=== PATIENT | female | born 1950 | race Caucasian/White ===

== ENCOUNTER 2023-05-20 21:09 | Emergency (ER) | payer MEDICARE, OTHER, SELFPAY ==
[2023-05-20 21:11] VITALS: BP 156/97; PULSE 101; RESP 16; TEMP 36.6; O2SAT 98; BMI 27.3
--- NOTE | 2023-05-20 21:23 | CT_ITS ---
INDICATION: injury EXAMINATION: CT BRAIN - CT Head or Brain W/O Contrast Injection TECHNIQUE: Multiple axial images were obtained of the head without intravenous contrast. A radiation dose optimization technique was used for this scan. IV Contrast dosage and agent: None. COMPARISON: FINDINGS: BRAIN PARENCHYMA: No intra- or extra-axial hemorrhage. No evidence of acute infarct. No intracranial mass or mass effect. There is preservation of the arechiga/white matter interface. Posterior fossa structures are unremarkable. CSF SPACES: Appropriate for age. No hydrocephalus. Basal cisterns are patent. CALVARIUM, SKULL BASE, PARANASAL SINUSES AND MASTOID AIR CELLS: Clear. No discrete lytic or blastic abnormalities. ORBITS: Both globes, extraocular muscles, optic nerves and retrobulbar fat appear unremarkable. Soft tissue laceration noted at the vertex. Superficial calcification presumably chronic noted on sagittal image [address]/Brain/Head without Contrast IMPRESSION: Soft tissue laceration superficially. No bony fracture or acute intracranial hemorrhage. Electronically Signed: Jonel Meier MD at 21:49 EST ,
--- NOTE | 2023-05-20 21:25 | EX.ED.GENINJ ---
HPI History of Present Illness Chief Complaint: Fall Informant: patient Onset/Context/Timing Onset: Today Narrative Narrative: Patient presents with a fall at home. She states she was stepping out of the shower when the mat slipped and she fell striking her head. She has a 3 cm laceration over the posterior parietal scalp. Bleeding is well controlled. She also has some slight right hip pain but was able to ambulate. She did not lose consciousness. She is not on anticoagulants. [facility] Medical History (Updated 05/20/23 @ 23:[address] Liane Woody MD) Hypothyroidism Home Medications colestipol 1 gram tablet (Colestid) 1 g PO BID 05/20/23 [History Last Taken Unknown] cyclobenzaprine 5 mg tablet 5 mg PO QHS 05/20/23 [History Last Taken Unknown] diphenoxylate-atropine 2.5 mg-0.025 mg tablet (Lomotil) 1 tab PO Q8H 05/20/23 [History Last Taken Unknown] ferrous sulfate 325 mg (65 mg iron) tablet (FeroSul) 325 mg PO DAILY 05/20/23 [History Last Taken Unknown] hyoscyamine sulfate 0.375 mg tablet,extended release,12 hr 0.375 mg PO Q12H 05/20/23 [History Last Taken Unknown] levothyroxine 75 mcg tablet 75 mcg PO DAILY 05/20/23 [History Last Taken Unknown] loperamide 2 mg capsule (Anti-Diarrheal (loperamide)) 4 mg PO DAILY 05/20/23 [History Last Taken Unknown] meloxicam 15 mg tablet 15 mg PO DAILY 05/20/23 [History Last Taken Unknown] multivitamin (Daily Multi-Vitamin tablet) 1 tab PO DAILY 05/20/23 [History Last Taken Unknown] Allergy/AdvReac Type Severity Reaction Status Date / Time Sulfa (Sulfonamide Allergy Rash Verified 05/20/23 21:15 Antibiotics) gluten AdvReac Upset Verified 05/20/23 21:15 Stomach Surgical History History of appendectomy Social History Smoking Status: Never smoker ROS ROS ED Constitutional Constitutional ED: Denies chills or fever(s) Eyes Eyes: Denies discharge from eye(s) ENT ENT ED: Denies discharge from eye(s), rhinorrhea or sore throat Cardiovascular Cardiovascular: Denies chest pain or palpitations Respiratory/Chest Respiratory/Chest: Denies cough or dyspnea Gastrointestinal Gastrointestinal: Denies abdominal pain, nausea or vomiting Musculoskeletal Musculoskeletal: Reports extremity pain; Denies back pain Integumentary Reports other Details: Scalp laceration ; Denies Abrasions or rash Neurologic Neurologic: Reports headache(s); Denies weakness Psychiatric Psychiatric: Denies anxiety or depression Allergic/Immunologic Allergic/Immunologic ED: Denies lip swelling or urticaria EXAM Physical Exam Const Vital Signs: 05/20/23 21:11 05/20/23 21:21 Temperature 97.8 F Temperature Source Temporal Pulse Rate 101 H Respiratory Rate 16 Respiratory Effort Normal Respiratory Depth Normal Respiratory Pattern Normal Blood Pressure 156/97 H Blood Pressure Mean 116 Pulse Ox 98 Oxygen Delivery Method Room Air Room Air Positive well nourished and well developed General Appearance ED: well developed HEENT HEENT Narrative: 6 cm laceration to the posterior parietal scalp midline. Bleeding controlled at this time. Eyes EOMs intact bilaterally Neck full ROM Chest Wall inspection of chest normal and palpation of chest normal Resp normal respiratory effort and clear to auscultation bilaterally Cardio regular rhythm Rate: regular rate GI non-tender Palpation: soft Extremity Extremity Narrative: Mild tenderness over the greater trochanter of the right hip. Good range of motion without difficulty. Strong distal pulses. Neuro oriented x3, moves all extremities, no focal motor deficits and no sensory deficits noted Psych mental status grossly normal Skin Skin Narrative: Scalp laceration as noted above. MDM MDM MDM Narrative Medical decision making narrative: Tetanus update provided. Patient sent for CT scan of the head to evaluate for fracture, bleed. Pelvis and right hip x-rays will be obtained to evaluate for fracture. Radiography Diagnostic Testing: Clinical Impression(s) from Imaging Studies Brain CT 05/20/23 21:23 IMPRESSION: Soft tissue laceration superficially. No bony fracture or acute intracranial hemorrhage. Electronically Signed: Jonel Meier MD at 21:49 EST , Hip/Pelvis X-Ray 05/20/23 21:35 IMPRESSION: No fracture detected. Osteoarthritis. Electronically Signed: Jonel Meier MD at 21:51 EST , Treatment and Re-Evaluation Narrative: CT scan of the head reveals soft tissue laceration with no bony injury. No intracranial hemorrhage. Pelvis and right hip x-rays per my interpretation reveal no evidence of fracture. Radiology interpretation reviewed and agrees. Patient's scalp wound was anesthetized with 6 cc of 1% lidocaine. Wound thoroughly cleansed and irrigated. 7 stephenie were placed across the wound with good approximation. She has an appointment with her PCP in 10 days and will have stephenie removed at that time. Wound care as discussed. Discharge Plan Triage Chief Complaint: Fall Other Complaint: Head Injury ED Provider: Liane Woody Dx/Rx/DC Orders Clinical Impression: Contusion of hip, Fall, Laceration of scalp Instructions: ED Hip Contusion, ED Laceration Scalp Stitches or Devers Prescriptions: No Action colestipol [Colestid] 1 gram tablet 1 g PO BID cyclobenzaprine 5 mg tablet 5 mg PO QHS Patient Comments: Take 1 tablet by mouth daily at bedtime. diphenoxylate-atropine [Lomotil] 2.5-0.025 mg tablet 1 tab PO Q8H ferrous sulfate [FeroSul] 325 mg (65 mg iron) tablet 325 mg PO DAILY Patient Comments: Take 1 tablet by mouth daily with breakfast. hyoscyamine sulfate 0.375 mg tablet extended release 12 hr 0.375 mg PO Q12H levothyroxine 75 mcg tablet 75 mcg PO DAILY loperamide [Anti-Diarrheal (loperamide)] 2 mg capsule 4 mg PO DAILY meloxicam 15 mg tablet 15 mg PO DAILY multivitamin [Daily Multi-Vitamin] Tablet 1 tab PO DAILY Primary Care Provider: Flaquito Goodman Referrals: Flaquito Goodman MD [Primary Care Provider] - [facility] appointment Disposition Disposition: Home, Self Care
--- NOTE | 2023-05-20 21:35 | RAD_ITS ---
INDICATION: injury EXAMINATION/TECHNIQUE: X-RAY - RIGHT 1 view pelvis and 2 view right hip COMPARISON: None. FINDINGS: Moderate bilateral hip joint space narrowing. No fracture. Pelvic rings are intact. Mild to moderate SI joint degenerative change. There is lower lumbar spine intervertebral disc narrowing and facet arthropathy L4-S1. RAD/HIP, UNI W/ Pelvis 2-3 Views IMPRESSION: No fracture detected. Osteoarthritis. Electronically Signed: Jonel Meier MD at 21:51 EST ,
[2023-05-20] MEDS: Diphth,Pertuss(Acell),Tet Vac 0.5 ML Vial IM (22:39)
[2023-05-20] MEDS: Lidocaine 1% (20 ml mdv) 20 ML Vial INFILT (22:39)
== END 2023-05-20 23:17 | disposition home or self-care (01) ==
PROVIDERS: Emergency Provider Emergency Medicine; PCP Family Medicine; Visit Provider Emergency Medicine
DX: S01.01XA Laceration without foreign body of scalp, initial encounter (principal); S70.01XA Contusion of right hip, initial encounter; W18.2XXA Fall in (into) shower or empty bathtub, initial encounter; Y93.89 Activity, other specified; Y92.89 Other specified places as the place of occurrence of the external cause; E03.9 Hypothyroidism, unspecified; Z79.899 Other long term (current) drug therapy; Z90.49 Acquired absence of other specified parts of digestive tract; Z23 Encounter for immunization
CPT/HCPCS: 12002; 70450; 73502; 90715; 99283

== ENCOUNTER → 2024-12-31 | Outpatient (CLI) | payer MEDICARE, OTHER, SELFPAY ==
[2024-12-31 14:24] LABS: Hematocrit 33.4 % (37-47); Hemoglobin 11.0 g/dL (12.0-15.0); Immature Granulocytes Count 0.030 X10^3/uL (0.0-0.0); Mean Corp Hgb Conc 32.9 g/dL (32-36); Mean Corpuscular Volume 90.0 fL (81-99); Mean Platelet Vol. 10.0 fl (6.2-12.0); NRBC Flagged by Analyzer 0 % (0-5); Platelet Count 505 K/mm3 (150-450); RBC Distribution Width CV 14.2 % (11.6-14.6); RBC Distribution Width SD 46.5 fl (35.1-43.9); Red Blood Count 3.71 M/mm3 (4.2-5.4); White Blood Count 11.7 K/mm3 (4.4-11.0)
[2024-12-31 15:27] LABS: AST(SGOT) 79 U/L (<=31); Alanine Aminotransfer ALT/SGPT 95 U/L (<=34); Albumin, Serum 3.5 g/dL (3.4-4.8); Alkaline Phosphatase 248 U/L (35-104); Anion Gap 16 (5-15); BUN 13 mg/dL (4-19); BUN/Creat Ratio 16.2 RATIO (10-20); Calcium,Total 9.1 mg/dL (7.6-11.0); Carbon Dioxide 24.2 mmol/L (21.0-32.0); Chloride 98 mmol/L (98-108); Cholesterol 159 mg/dL (<=200); Ferritin 163 ng/mL (22-378); Globulin 3.3 g/dL (2.2-4.2); Glucose 106 mg/dL (70-99); Low Density Lipoprotein Calc. 71 mg/dL; Potassium 3.2 mmol/L (3.3-5.1); Triglycerides 64 mg/dL; Very Low Density Lipoprotein 13 mg/dL (5-40); cholesterol:hdl ratio screen 2.12
[2024-12-31 16:06] LABS: Iron 14 ug/dL (50-170); Iron Binding Capacity,Total 274 ug/dL (250-450); Iron Binding Capacity,Unsat 260 ug/dL (228-428)
--- OUTSIDE RECORDS SUMMARY | 2024-12-31 21:18 | XMS RPT_ITS | CCD ---
Author Organization [facility] Team Providers Care Manager Occupational Name Role Phone Humera Lamas MD Primary Care Provider Humera Lamas Primary Care Unavailable Liane Woody Attending Unavailable Humera Lamas MD Primary Care Provider Humera Lamas MD Primary Care Provider Evelin LESTER MD, Mark Beltre Primary Care Provider Gladys vailable [place] [employer] Unavailable Ellis SHOT FIREMAN.Alessio [place] Unavailable PEPPER SOUSA Referring Unavailable CYDNEY HUMERA D Primary Care Unavailable VEDAHOFPEPPER Attending Unavailable CYDNEY HUMERA Lissy Primary Care Unavailable ELDERBROCK HUMERA Lissy Referring Unavailable ELDERBROCK, HUMERA D Primary Care Unavailable TANNHOFDIXIEPEPPER Referring Unavailable ELDERBROCK, HUMERA D Primary Care Unavailable TANNHOFDIXIEPEPPER Referring Unavailable ELDERBROCK, HUMERA D Primary Care Unavailable TANNHODIXIE RivasLEY Attending Unavailable ELDERBROCK, HUMERA D Primary Care Unavailable TANNHOF PEPPER Referring Unavailable ELDERBROCK, HUMERA D Primary Care Unavailable [place] [employer] Unavailable [phone] Allergies Allergy Classification Reported Allergen(s) Allergy Type Date of Onset Reaction(s) Facility (20 sources) Sulfonamides (Antibiotic); Translations: [SULFA (SULFONAMIDE ANTIBIOTICS)] Propensity to adverse reactions 5 [facility] Work Phone: (20 sources) Wheat gluten extract; Translations: [GLUTEN] Drug Allergy 5 Upset Stomach [facility] Work Phone: (1 source) Sulfonamides (Antibiotic) Allergy to substance 3 Rash [facility] (1 source) Gluten Drug allergy (disorder) 3 [facility] Repository (1 source) Sulfonamides (Antibiotic) Drug allergy (disorder) 3 [facility] Repository Medications Current Medications Medication Drug Class(es) Dates Sig (Normalized) Sig (Original) amoxicillin 875 mg / clavulanate 125 mg oral tablet (2 sources) Penicillin-class Antibacterial Start: 06-16-2022 End: 06-26-2022 take 1 tablet by mouth twice daily amoxicillin-clavu lanic acid (AUGMENTIN) 875-125 mg per tablet Indications: Acute otitis media, unspecified otitis media type Take 1 tablet by mouth twice daily for 10 days. 20 tablet 0 06/16/2022 06/26/2022 Active Comment on above: Take 1 tablet by светлана th twice daily for 10 days. atropine sulfate 0.025 mg / diphenoxylate hydrochloride 2.5 mg oral tablet (20 sources) Anticholinergic, Cholinergic Muscarinic Antagonist, Antidiarrheal Start: 05-20-2023 take 1 tablet by mouth every eight hours Diphenoxylate-Atr opine (Lomotil) 2.5-0.025 mg tablet Active 1 TABLET PO Q8H May 20, 2023 12:00am Start: 07-31-2020 End: 06-19-2025 take 1 tablet by mouth four times daily as needed for diarrhea diphenoxylate-atropine (LOMOTIL) 2.5-0.025 mg per tablet Indications: Collagenous colitis Take 1 tablet by mouth four times a day as needed for diarrhea for up to 360 days. 360 tablet 3 06/24/2024 06/19/2025 Active Comment on above: Take 1 tablet by светлана th four times daily as needed for diarrhea for up to 360 days. Take 1 tablet by светлана th four times a day as needed for diarrhea for up to 360 days. colestipol hydrochloride 1000 mg oral tablet (20 sources) Bile Acid Sequestrant Start: 05-20-2023 Colestipol (Colestid) 1 gram tablet Active 1 GM PO TWICE A DAY May 20, 2023 12:00am Start: 07-31-2020 End: 06-24-2024 take 3 tablets by mouth twice daily colestipol (COLESTID) 1 gram tablet Indications: Collagenous colitis , Celiac disease (HCC) Take 3 tablets by mouth two times a day. 540 tablet 3 06/24/2024 Active Comment on above: Take 3 tablets by mo uth twice daily. Take 3 tablets by mo ut two times a day. cyclobenzaprine hydrochloride 5 mg oral tablet (18 sources) Muscle Relaxant Start: 03-17-20 End: 05-22-20 take 1 tablet by mouth once daily at bedtime cyclobenzaprine (FLEXERIL) 5 mg tablet Indications: Chronic pain of both knees Take 1 tablet by mouth daily at bedtime. 30 tablet 5 05/22/2023 Active Comment on above: Take 1 tablet by светлана th daily at bedtime. Take 5 mg by mouth d aily at bedtime. ferrous sulfate 325 mg oral tablet (20 sources) Start: 05-20-20 Ferrous Sulfate (Ferrous Sulfate 325 Mg (65 Mg Iron) Tablet) 325 mg (65 mg iron) tablet Active 325 MG PO DAILY May 20, 2023 12:00am Start: 11-24-2022 End: 06-24-2024 take 1 tablet by mouth once daily at breakfast ferrous sulfate 325 mg (65 mg iron) tablet Indications: Collagenous colitis , Iron deficiency anemia, unspecified iron deficiency anemia type Take 1 tablet by mouth daily with breakfast. 90 tablet 3 06/24/2024 Active Start: 11-25-2021 End: 04-21-2022 take 1 tablet by mouth once daily at breakfast ferrous sulfate 325 mg (65 mg iron) tablet Indications: Iron deficiency anemia, unspecified iron deficiency anemia type Take 1 tablet by mouth daily with breakfast. 30 tablet 5 04/21/2022 Active Comment on above: Take 1 tablet by светлана th daily with breakfast. 12 hr hyoscyamine sulfate 0.375 mg extended release oral tablet (20 sources) Start: take 0.375 mg by mouth every twelve hours Hyoscyamine Sulfate Active 0.375 MG PO Q12H May 20, 2023 12:00am Start: 10-24-2022 End: 06-24-2024 take 1 tablet by mouth twice daily hyoscyamine SR (LEVBID) 0.375 mg 12 hr tablet Indications: Collagenous colitis Take 1 tablet by mouth two times a day. 180 tablet 3 06/24/2024 Active Start: 07-31-2020 End: 08-09-2021 take 1 tablet by mouth twice daily hyoscyamine SR (LEVBID) 0.375 mg 12 hr tablet Indications: Collagenous colitis Take 1 tablet by mouth twice daily. 180 tablet 3 08/09/2021 Active Comment on above: Take 1 tablet by светлана th twice daily. levothyroxine sodium 0.088 mg oral tablet (20 sources) l-Thyroxine Start: End: take 1 tablet by mouth once daily levothyroxine (SYNTHROID) 88 mcg tablet Indications: Hypothyroidism, unspecified type Take 1 tablet by mouth once daily. Take on empty stomach. 90 tablet 3 06/24/2024 Active Start: 10-24-2022 End: 05-30-2023 take 1 tablet by mouth once daily for thyroid dysfunction levothyroxine (SYNTHROID) 75 mcg tablet Take 1 tablet by mouth once daily. Take on empty stomach. For Thyroid 90 tablet 3 10/24/2022 05/30/2023 Discontinued Start: 07-31-2020 End: 08-09-2021 take 1 tablet by mouth once daily for thyroid dysfunction levothyroxine (SYNTHROID) 75 mcg tablet Take 1 tablet by mouth once daily. Take on empty stomach. For Thyroid 90 tablet 3 08/09/2021 Active Comment on above: Take 1 tablet by светлана th once daily. Take on empty stomach. For Thyroid Take 1 tablet by светлана th once daily. Take on empty stomach. loperamide hydrochloride 2 mg oral capsule (20 sources) Opioid Agonist Start: 07-31-19 End: 05-22-20 23 take 1 capsule by mouth once daily loperamide (IMODIUM) 2 mg cap(s) Indications: Celiac disease (HCC) TAKE 1 CAPSULE BY MOUTH WITH EACH MEAL DAILY 270 capsule 3 05/22/2023 Active Comment on above: TAKE 1 CAPSULE BY MO UTH WITH EACH MEAL DAILY meloxicam 15 mg oral tablet (20 sources) Nonsteroidal Anti-inflammatory Drug Start: 08-09-19 22 End: 06-24-19 26 take 1 tablet by mouth once daily at mealtime meloxicam (MOBIC) 15 mg tablet Indications: Chronic pain of both knees Take 1 tablet by mouth once daily. With food. 90 tablet 3 06/24/2024 06/24/2025 Active Comment on above: Take 1 tablet by светлана th once daily. With food. MULTI-VITAMIN TAB (20 sources) Start: 04-19-20 05 MULTI-VITAMIN TAB Indications: Other malaise and fatigue Take one(1) tablet daily. 0 04/19/2005 Active Comment on above: Take one(1) tablet d aily. Multivitamin (Daily Multi-Vitamin) tablet (1 source) Start: 05-20-20 take 1 tablet by mouth once daily Multivitamin (Daily Multi-Vitamin) tablet Active 1 TABLET PO DAILY May 20, 2023 12:00am Problems Active Problems Problem Classification Problem Date Documented Da te Episodic/Chronic Deficiency and other anemia (2 sources) Anemia; Translations: [Anemia, unspecified] Episodic Deficiency and other anemia (7 sources) Iron deficiency anemia; Translations: [Iron deficiency anemia, unspecified] Episodic Disorders of lipid metabolism (20 sources) Hyperlipidemia; Translations: [Hyperlipidemia, unspecified] Onset: 3 06-21-2012 Chronic E Codes: Fall (1 source) Fall; Translations: [Unspecified fall, initial encounter] 05-20-2023 Episodic Esophageal disorders (20 sources) Gastroesophageal reflux disease; Translations: [Gastro-esophageal reflux disease without esophagitis] 04-18-2005 Chronic Menopausal disorders (20 sources) Menopausal symptom; Translations: [Menopausal and female climacteric states] Onset: 7 01-17-2007 Chronic Noninfectious gastroenteritis (20 sources) Collagenous colitis; Translations: [Collagenous colitis] Onset: 0 04-21-2010 Chronic Nonmalignant breast conditions (20 sources) Fibrocystic disease of breast; Translations: [Diffuse cystic mastopathy of unspecified breast] Onset: 4 03-27-2014 Chronic Open wounds of head; neck; and trunk (2 sources) Scalp laceration; Translations: [Laceration without foreign body of scalp, initial encounter] Onset: 3 05-20-2023 Episodic Osteoarthritis (20 sources) Arthropathy of joint of hand; Translations: [Primary osteoarthritis, unspecified hand] Onset: 4 07-08-2013 Chronic Other aftercare (20 sources) Patient encounter status; Translations: [Other group home (current) drug therapy] Onset: 6 12-25-2015 Episodic Other aftercare (1 source) Post-discharge follow-up; Translations: [Encounter for follow-up examination after completed treatment for conditions other than malignant neoplasm] 05-30-2023 Episodic Other aftercare (1 source) Surgical follow-up; Translations: [Encounter for removal of sutures] 05-30-2023 Episodic Other gastrointestinal disorders (20 sources) Celiac disease; Translations: [Celiac disease] 04-18-2005 Chronic Other gastrointestinal disorders (1 source) Celiac disease; Translations: [Celiac disease] Onset: 5 Chronic Other nervous system disorders (1 source) Other chronic pain; Translations: [Chronic pain of both knees] Onset: 4 Chronic Other nutritional; endocrine; and metabolic disorders (1 source) Weight gain; Translations: [Abnormal weight gain] Episodic Otitis media and related conditions (1 source) Acute otitis media; Translations: [Otitis media, unspecified, unspecified ear] Episodic Residual codes; unclassified (3 sources) Postmenopausal state; Translations: [Asymptomatic menopausal state] 06-28-2024 Episodic Residual codes; unclassified (1 source) Asymptomatic menopausal state; Translations: [Asymptomatic postmenopausal status] Onset: 5 Episodic Spondylosis; intervertebral disc disorders; other back problems (20 sources) Pain in cervical spine; Translations: [Cervical disc disorder, unspecified, unspecified cervical region] Onset: 0 08-25-2009 Chronic Superficial injury; contusion (1 source) Contusion of hip; Translations: [Contusion of unspecified hip, initial encounter] 05-20-2023 Episodic Thyroid disorders (20 sources) Hypothyroidism; Translations: [Hypothyroidism, unspecified] Onset: 1 06-06-2011 Chronic Unclassified (1 source) Acute midline low back pain without sciatica; Translations: [Acute midline low back pain without sciatica] Onset: 5 Past or Other Problems Problem Classification Problem Date Documented Date Episodic/Chronic Deficiency and other anemia (1 source) Iron deficiency anemia, unspecified; Translations: [Iron deficiency anemia, unspecified iron deficiency anemia type] Onset: 12-01-2023 Episodic Esophageal disorders (9 sources) Esophagitis; Translations: [Esophagitis, unspecified] Onset: 05-18-2007 Resolved: 05-05-2016 05-05-2016 Episodic Gastritis and duodenitis (20 sources) Acute gastritis; Translations: [Acute gastritis without bleeding] Onset: 05-18-2007 05-18-2007 Episodic Mood disorders (9 sources) Major depression, single episode; Translations: [Major depressive disorder, single episode, unspecified] Resolved: 06-28-2017 06-28-2017 Chronic Nausea and vomiting (20 sources) Postoperative nausea and vomiting; Translations: [Nausea with vomiting, unspecified] Onset: 01-13-2015 01-13-2015 Episodic Nonspecific chest pain (2 sources) Chest pain; Translations: [Other chest pain] Onset: 12-01-2023 12-01-2023 Episodic Nutritional deficiencies (14 sources) Vitamin D deficiency; Translations: [Vitamin D deficiency, unspecified] Onset: 06-06-2011 Resolved: 05-05-2016 Chronic Other aftercare (8 sources) Long-term current use of drug therapy; Translations: [Other group home (current) drug therapy] Onset: 12-25-2015 12-25-2015 Episodic Other connective tissue disease (9 sources) Soft tissue lesion of shoulder region; Translations: [Bursopathy, unspecified] Onset: 06-14-2005 Resolved: 05-05-2016 05-05-2016 Episodic Other connective tissue disease (9 sources) Triggering of digit; Translations: [Trigger finger, right middle finger] Onset: 07-08-2013 Resolved: 05-05-2016 05-05-2016 Episodic Other non-traumatic joint disorders (20 sources) Pain in left knee; Translations: [Pain in joint, lower leg] Onset: 05-02-2013 05-02-2013 Episodic Other non-traumatic joint disorders (6 sources) Pain in right knee; Translations: [Pain in joint, lower leg] Onset: 12-01-2023 Episodic Other nutritional; endocrine; and metabolic disorders (20 sources) Unintentional weight loss; Translations: [Abnormal weight loss] Onset: 06-28-2017 06-28-2017 Episodic Other screening for suspected conditions (not mental disorders or infectious disease) (20 sources) Mammography abnormal; Translations: [Other abnormal and inconclusive findings on diagnostic imaging of breast] Onset: 01-05-2018 01-30-2018 Episodic Spondylosis; intervertebral disc disorders; other back problems (20 sources) Cervical spine ankylosis; Translations: [Fusion of spine, cervical region] Onset: 01-13-2015 01-13-2015 Episodic Results Test Name Value Interpretation Reference Range Facility BD DXA - AXIAL SKELETONon BD DXA - AXIAL SKELETON * * *Final Repor t* * * DATE OF EXAM: Aug 12 2024 11:29AM [facility] [id number] - DXA - AXIAL SKELETON / PROCEDURE REASON: Asymptomatic postmenopausal status * * * * Physician Interpretation * * * * EXAMINATION: DXA BONE DENSITOMETRY BD DXA - AXIAL SKELETON, BD DXA TRABECLR BONE SCORE (TBS) PATIENT DEMOGRAPHICS: Age: 74 years, Gender: Female SCANNER INFORMATION: DXA Model: Facile System - [employer] C [id number] Date Scanned: 08/12/2024 11:29 AM CLINICAL HISTORY: DIAGNOSTIC Asymptomatic postmenopausal status . RISK FACTORS FOR OSTEOPOROSIS AND ASSOCIATED FRACTURES REPORTED BY THIS PATIENT: Please refer to Bone Health Questionnaire in the EMR CURRENT THERAPY: Please refer to Bone Health Questionnaire in the EMR RESULTS: Lumbar spine (L2, L3, L4): 0.811 g/cm2, T-score -2.4, Z-score 0.0 Lumbar spine: 2012: 0.877 g/cm2 Statistically significant decrease Right Femoral Neck: 0.519 g/cm2, T-score -3.0, Z-score -1.0 Right Femoral Neck: 2012: 0.674 g/cm2 Statistically significant decrease Right Total Hip: 0.608 g/cm2, T-score -2.7, Z-score -1.0 Right Total Hip: 2012: 0.826 g/cm2 Statistically significant decrease Left Femoral Neck: 0.489 g/cm2, T-score -3.2, Z-score -1.3 Left Total Hip: 0.550 g/cm2, T-score -3.2, Z-score -1.5 CHANGE IS STATISTICALLY SIGNIFICANT IN THE SPINE OR HIP IF GREATER THAN OR EQUAL TO 0.04 g/cm2 VERTEBRAL FRACTURE ASSESSMENT Not performed. TRABECULAR BONE ASSESSMENT TBS score: 1.268 Bone micro-architecture: Degraded (< or = 1.230) IMPRESSION: THE LOWEST T-SCORE IS -3.2 IN THE LEFT HIP 1) DIAGNOSIS (based on BMD alone): OSTEOPOROSIS Caution: Medical conditions other than osteoporosis may cause low bone density, such as osteomalacia or renal osteodystrophy. Clinical correlation is necessary. 2) FRACTURE RISK (Based on TBS adjusted FRAX): 10-year absolute fracture risk: - major osteoporotic fracture = 18 % - hip fracture = 6.0 % - A diagnosis of Osteoporosis, a 10 year probability of hip fracture greater than or equal to 3% or a 10 year probability of any major osteoporosis-related fracture greater than or equal to 20% should be considered for treatment. - DXA scanner generated FRAX calculations may slightly differ from online FRAX calculations due to differences in software versions. - All recommendations and calculations are to be considered as guidelines and should not replace sound clinical judgement - Caution: Fracture risk may be increased independent of BMD in patients with corticosteroid use, age greater than 65 years, or a history of prior fragility fracture. RECOMMENDATIONS: Follow-up in 2 years or as clinically indicated. Patients that are taking corticosteroids, are transplant recipients or have hyperparathyroidism should have annual follow-up. Follow-up scans should always be done on the same machine for accurate comparison. FOR MORE INFORMATION ABOUT DIAGNOSIS AND TREATMENT: [facility] for Osteoporosis and Metabolic Bone Disease:? www.ccf.org/arthritis /osteo National Osteoporosis Foundation:? www.nof.org International Society of Clinical Densitometry www.iscd.org Weatherization Operations Manager: YUSEF Transcribe Date/Time: Aug 12 2024 2:27P Dictated by : CONNER MARTINEZ MD This examination was interpreted and the report reviewed and electronically signed by: CONNER MARTINEZ MD on Aug 12 2024 2:30PM EST [id number] N -3.2 Normal [facility] BD DXA TRABECLR BONE SCORE ( TBS)on 08-12-2024 BD DXA TRABECLR BONE SCORE (TBS) * * *Final Report* * * DATE OF EXAM: Aug 12 2024 11:29AM [facility] 0801 - BD DXA TRABECLR BONE SCORE (TBS) / PROCEDURE REASON: Asymptomatic postmenopausal status * * * * Physician Interpretation * * * * EXAMINATION: DXA BONE DENSITOMETRY BD DXA - AXIAL SKELETON, BD DXA TRABECLR BONE SCORE (TBS) PATIENT DEMOGRAPHICS: Age: 74 years, Gender: Female SCANNER INFORMATION: DXA Model: Facile System - [employer] C [id number] Date Scanned: 08/12/2024 11:29 AM CLINICAL HISTORY: DIAGNOSTIC Asymptomatic postmenopausal status . RISK FACTORS FOR OSTEOPOROSIS AND ASSOCIATED FRACTURES REPORTED BY THIS PATIENT: Please refer to Bone Health Questionnaire in the EMR CURRENT THERAPY: Please refer to Bone Health Questionnaire in the EMR RESULTS: Lumbar spine (L2, L3, L4): 0.811 g/cm2, T-score -2.4, Z-score 0.0 Lumbar spine: 2012: 0.877 g/cm2 Statistically significant decrease Right Femoral Neck: 0.519 g/cm2, T-score -3.0, Z-score -1.0 Right Femoral Neck: 2013: 0.674 g/cm2 Statistically significant decrease Right Total Hip: 0.608 g/cm2, T-score -2.7, Z-score -1.0 Right Total Hip: 2013: 0.826 g/cm2 Statistically significant decrease Left Femoral Neck: 0.489 g/cm2, T-score -3.2, Z-score -1.3 Left Total Hip: 0.550 g/cm2, T-score -3.2, Z-score -1.5 CHANGE IS STATISTICALLY SIGNIFICANT IN THE SPINE OR HIP IF GREATER THAN OR EQUAL TO 0.04 g/cm2 VERTEBRAL FRACTURE ASSESSMENT Not performed. TRABECULAR BONE ASSESSMENT TBS score: 1.268 Bone micro-architecture: Degraded (< or = 1.230) IMPRESSION: THE LOWEST T-SCORE IS -3.2 IN THE LEFT HIP 1) DIAGNOSIS (based on BMD alone): OSTEOPOROSIS Caution: Medical conditions other than osteoporosis may cause low bone density, such as osteomalacia or renal osteodystrophy. Clinical correlation is necessary. 2) FRACTURE RISK (Based on TBS adjusted FRAX): 10-year absolute fracture risk: - major osteoporotic fracture = 18 % - hip fracture = 6.0 % - A diagnosis of Osteoporosis, a 10 year probability of hip fracture greater than or equal to 3% or a 10 year probability of any major osteoporosis-related fracture greater than or equal to 20% should be considered for treatment. - DXA scanner generated FRAX calculations may slightly differ from online FRAX calculations due to differences in software versions. - All recommendations and calculations are to be considered as guidelines and should not replace sound clinical judgement - Caution: Fracture risk may be increased independent of BMD in patients with corticosteroid use, age greater than 65 years, or a history of prior fragility fracture. RECOMMENDATIONS: Follow-up in 2 years or as clinically indicated. Patients that are taking corticosteroids, are transplant recipients or have hyperparathyroidism should have annual follow-up. Follow-up scans should always be done on the same machine for accurate comparison. FOR MORE INFORMATION ABOUT DIAGNOSIS AND TREATMENT: [facility] for Osteoporosis and Metabolic Bone Disease:? www.ccf.org/arthritis /osteo National Osteoporosis Foundation:? www.nof.org International Society of Clinical Densitometry www.iscd.org Weatherization Operations Manager: YUSEF Transcribe Date/Time: Aug 12 2024 2:27P Dictated by : CONNER MARTINEZ MD This examination was interpreted and the report reviewed and electronically signed by: CONNER MARTINEZ MD on Aug 12 2024 2:30PM EST [id number] N -3.2 Normal [facility] DXA Femur [T-score] Bone den kera 08-12-2024 * * *Final Report* * * DATE OF EXAM: Aug 12 2024 11:29AM [facility] 0801 - BD DXA TRABECLR BONE SCORE (TBS) / PROCEDURE REASON: Asymptomatic postmenopausal status * * * * Physician Interpretation * * * * EXAMINATION: DXA BONE DENSITOMETRY BD DXA - AXIAL SKELETON, BD DXA TRABECLR BONE SCORE (TBS) PATIENT DEMOGRAPHICS: Age: 74 years, Gender: Female SCANNER INFORMATION: DXA Model: Facile System - [employer] C [id number] Date Scanned: 08/12/2024 11:29 AM CLINICAL HISTORY: DIAGNOSTIC Asymptomatic postmenopausal status . RISK FACTORS FOR OSTEOPOROSIS AND ASSOCIATED FRACTURES REPORTED BY THIS PATIENT: Please refer to Bone Health Questionnaire in the EMR CURRENT THERAPY: Please refer to Bone Health Questionnaire in the EMR RESULTS: Lumbar spine (L2, L3, L4): 0.811 g/cm2, T-score -2.4, Z-score 0.0 Lumbar spine: 2013: 0.877 g/cm2 Statistically significant decrease Right Femoral Neck: 0.519 g/cm2, T-score -3.0, Z-score -1.0 Right Femoral Neck: 2013: 0.674 g/cm2 Statistically significant decrease Right Total Hip: 0.608 g/cm2, T-score -2.7, Z-score -1.0 Right Total Hip: 2013: 0.826 g/cm2 Statistically significant decrease Left Femoral Neck: 0.489 g/cm2, T-score -3.2, Z-score -1.3 Left Total Hip: 0.550 g/cm2, T-score -3.2, Z-score -1.5 CHANGE IS STATISTICALLY SIGNIFICANT IN THE SPINE OR HIP IF GREATER THAN OR EQUAL TO 0.04 g/cm2 VERTEBRAL FRACTURE ASSESSMENT Not performed. TRABECULAR BONE ASSESSMENT TBS score: 1.268 Bone micro-architecture: Degraded (< or = 1.230) DIVISION OF RADIOLOGY Provider, [facility] - 08/12/2024 * * *Final Report* * * DATE OF EXAM: Aug 12 2024 11:29AM [facility] 0801 - BD DXA TRABECLR BONE SCORE (TBS) / PROCEDURE REASON: Asymptomatic postmenopausal status * * * * Physician Interpretation * * * * EXAMINATION: DXA BONE DENSITOMETRY BD DXA - AXIAL SKELETON, BD DXA TRABECLR BONE SCORE (TBS) PATIENT DEMOGRAPHICS: Age: 74 years, Gender: Female SCANNER INFORMATION: DXA Model: Facile System - [employer] C [id number] Date Scanned: 08/12/2024 11:29 AM CLINICAL HISTORY: DIAGNOSTIC Asymptomatic postmenopausal status . RISK FACTORS FOR OSTEOPOROSIS AND ASSOCIATED FRACTURES REPORTED BY THIS PATIENT: Please refer to Bone Health Questionnaire in the EMR CURRENT THERAPY: Please refer to Bone Health Questionnaire in the EMR RESULTS: Lumbar spine (L2, L3, L4): 0.811 g/cm2, T-score -2.4, Z-score 0.0 Lumbar spine: 2013: 0.877 g/cm2 Statistically significant decrease Right Femoral Neck: 0.519 g/cm2, T-score -3.0, Z-score -1.0 Right Femoral Neck: 2013: 0.674 g/cm2 Statistically significant decrease Right Total Hip: 0.608 g/cm2, T-score -2.7, Z-score -1.0 Right Total Hip: 2013: 0.826 g/cm2 Statistically significant decrease Left Femoral Neck: 0.489 g/cm2, T-score -3.2, Z-score -1.3 Left Total Hip: 0.550 g/cm2, T-score -3.2, Z-score -1.5 CHANGE IS STATISTICALLY SIGNIFICANT IN THE SPINE OR HIP IF GREATER THAN OR EQUAL TO 0.04 g/cm2 VERTEBRAL FRACTURE ASSESSMENT Not performed. TRABECULAR BONE ASSESSMENT TBS score: 1.268 Bone micro-architecture: Degraded (< or = 1.230) IMPRESSION IMPRESSION: THE LOWEST T-SCORE IS -3.2 IN THE LEFT HIP 1) DIAGNOSIS (based on BMD alone): OSTEOPOROSIS Caution: Medical conditions other than osteoporosis may cause low bone density, such as osteomalacia or renal osteodystrophy. Clinical correlation is necessary. 2) FRACTURE RISK (Based on TBS adjusted FRAX): 10-year absolute fracture risk: - major osteoporotic fracture = 18 % - hip fracture = 6.0 % - A diagnosis of Osteoporosis, a 10 year probability of hip fracture greater than or equal to 3% or a 10 year probability of any major osteoporosis-related fracture greater than or equal to 20% should be considered for treatment. - DXA scanner generated FRAX calculations may slightly differ from online FRAX calculations due to differences in software versions. - All recommendations and calculations are to be considered as guidelines and should not replace sound clinical judgement - Caution: Fracture risk may be increased independent of BMD in patients with corticosteroid use, age greater than 65 years, or a history of prior fragility fracture. RECOMMENDATIONS: Follow-up in 2 years or as clinically indicated. Patients that are taking corticosteroids, are transplant recipients or have hyperparathyroidism should have annual follow-up. Follow-up scans should always be done on the same machine for accurate comparison. FOR MORE INFORMATION ABOUT DIAGNOSIS AND TREATMENT: [facility] Osteoporosis and Metabolic Bone Disease:? [email or web address]/arthritis /osteo National Osteoporosis Foundation:? www.nof.org International Society of Clinical Densitometry www.iscd.org Weatherization Operations Manager: YUSEF Transcribe Date/Time: Aug 12 2024 2:27P Dictated by : CONNER MARTINEZ MD This examination was interpreted and the report reviewed and electronically signed by: CONNER MARTINEZ MD on Aug 12 2024 2:30PM EST [facility] DXA Skeletal system.axial Vi ews for bone densityon 08-12-2024 * * *Final Report* * * DATE OF EXAM: Aug 12 2024 11:29AM WRB 0804 - BD DXA - AXIAL SKELETON / PROCEDURE REASON: Asymptomatic postmenopausal status * * * * Physician Interpretation * * * * EXAMINATION: DXA BONE DENSITOMETRY BD DXA - AXIAL SKELETON, BD DXA TRABECLR BONE SCORE (TBS) PATIENT DEMOGRAPHICS: Age: 74 years, Gender: Female SCANNER INFORMATION: DXA Model: Facile System - [employer] Discovery C [id number] Date Scanned: 08/12/2024 11:29 AM CLINICAL HISTORY: DIAGNOSTIC Asymptomatic postmenopausal status . RISK FACTORS FOR OSTEOPOROSIS AND ASSOCIATED FRACTURES REPORTED BY THIS PATIENT: Please refer to Bone Health Questionnaire in the EMR CURRENT THERAPY: Please refer to Bone Health Questionnaire in the EMR RESULTS: Lumbar spine (L2, L3, L4): 0.811 g/cm2, T-score -2.4, Z-score 0.0 Lumbar spine: 2013: 0.877 g/cm2 Statistically significant decrease Right Femoral Neck: 0.519 g/cm2, T-score -3.0, Z-score -1.0 Right Femoral Neck: 2012: 0.674 g/cm2 Statistically significant decrease Right Total Hip: 0.608 g/cm2, T-score -2.7, Z-score -1.0 Right Total Hip: 2013: 0.826 g/cm2 Statistically significant decrease Left Femoral Neck: 0.489 g/cm2, T-score -3.2, Z-score -1.3 Left Total Hip: 0.550 g/cm2, T-score -3.2, Z-score -1.5 CHANGE IS STATISTICALLY SIGNIFICANT IN THE SPINE OR HIP IF GREATER THAN OR EQUAL TO 0.04 g/cm2 VERTEBRAL FRACTURE ASSESSMENT Not performed. TRABECULAR BONE ASSESSMENT TBS score: 1.268 Bone micro-architecture: Degraded (< or = 1.230) DIVISION OF RADIOLOGY Provider, [facility] - 08/12/2024 * * *Final Report* * * DATE OF EXAM: Aug 12 2024 11:29AM [facility] 0804 - BD DXA - AXIAL SKELETON / PROCEDURE REASON: Asymptomatic postmenopausal status * * * * Physician Interpretation * * * * EXAMINATION: DXA BONE DENSITOMETRY BD DXA - AXIAL SKELETON, BD DXA TRABECLR BONE SCORE (TBS) PATIENT DEMOGRAPHICS: Age: 74 years, Gender: Female SCANNER INFORMATION: DXA Model: Facile System - [employer] C [id number] Date Scanned: 08/12/2024 11:29 AM CLINICAL HISTORY: DIAGNOSTIC Asymptomatic postmenopausal status . RISK FACTORS FOR OSTEOPOROSIS AND ASSOCIATED FRACTURES REPORTED BY THIS PATIENT: Please refer to Bone Health Questionnaire in the EMR CURRENT THERAPY: Please refer to Bone Health Questionnaire in the EMR RESULTS: Lumbar spine (L2, L3, L4): 0.811 g/cm2, T-score -2.4, Z-score 0.0 Lumbar spine: 2013: 0.877 g/cm2 Statistically significant decrease Right Femoral Neck: 0.519 g/cm2, T-score -3.0, Z-score -1.0 Right Femoral Neck: 2013: 0.674 g/cm2 Statistically significant decrease Right Total Hip: 0.608 g/cm2, T-score -2.7, Z-score -1.0 Right Total Hip: 2013: 0.826 g/cm2 Statistically significant decrease Left Femoral Neck: 0.489 g/cm2, T-score -3.2, Z-score -1.3 Left Total Hip: 0.550 g/cm2, T-score -3.2, Z-score -1.5 CHANGE IS STATISTICALLY SIGNIFICANT IN THE SPINE OR HIP IF GREATER THAN OR EQUAL TO 0.04 g/cm2 VERTEBRAL FRACTURE ASSESSMENT Not performed. TRABECULAR BONE ASSESSMENT TBS score: 1.268 Bone micro-architecture: Degraded (< or = 1.230) IMPRESSION IMPRESSION: THE LOWEST T-SCORE IS -3.2 IN THE LEFT HIP 1) DIAGNOSIS (based on BMD alone): OSTEOPOROSIS Caution: Medical conditions other than osteoporosis may cause low bone density, such as osteomalacia or renal osteodystrophy. Clinical correlation is necessary. 2) FRACTURE RISK (Based on TBS adjusted FRAX): 10-year absolute fracture risk: - major osteoporotic fracture = 18 % - hip fracture = 6.0 % - A diagnosis of Osteoporosis, a 10 year probability of hip fracture greater than or equal to 3% or a 10 year probability of any major osteoporosis-related fracture greater than or equal to 20% should be considered for treatment. - DXA scanner generated FRAX calculations may slightly differ from online FRAX calculations due to differences in software versions. - All recommendations and calculations are to be considered as guidelines and should not replace sound clinical judgement - Caution: Fracture risk may be increased independent of BMD in patients with corticosteroid use, age greater than 65 years, or a history of prior fragility fracture. RECOMMENDATIONS: Follow-up in 2 years or as clinically indicated. Patients that are taking corticosteroids, are transplant recipients or have hyperparathyroidism should have annual follow-up. Follow-up scans should always be done on the same machine for accurate comparison. FOR MORE INFORMATION ABOUT DIAGNOSIS AND TREATMENT: [facility] for Osteoporosis and Metabolic Bone Disease:? [email or web address] /osteo National Osteoporosis Foundation:? www.nof.org International Society of Clinical Densitometry www.iscd.org Weatherization Operations Manager: YUSEF Transcribe Date/Time: Aug 12 2024 2:27P Dictated by : CONNER MARTINEZ MD This examination was interpreted and the report reviewed and electronically signed by: CONNER MARTINEZ MD on Aug 12 2024 2:30PM [facility] No Panel InformationOrdered By: Psychiatric Provider on 08-12-2024 LOWEST T-SCORE -3.2 [facility] No Panel Informationon 08-12 IMPRESSION: THE LOWEST T-SCORE IS -3.2 IN THE LEFT HIP 1) DIAGNOSIS (based on BMD alone): OSTEOPOROSIS Caution: Medical conditions other than osteoporosis may cause low bone density, such as osteomalacia or renal osteodystrophy. Clinical correlation is necessary. 2) FRACTURE RISK (Based on TBS adjusted FRAX): 10-year absolute fracture risk: - major osteoporotic fracture = 18 % - hip fracture = 6.0 % - A diagnosis of Osteoporosis, a 10 year probability of hip fracture greater than or equal to 3% or a 10 year probability of any major osteoporosis-related fracture greater than or equal to 20% should be considered for treatment. - DXA scanner generated FRAX calculations may slightly differ from online FRAX calculations due to differences in software versions. - All recommendations and calculations are to be considered as guidelines and should not replace sound clinical judgement - Caution: Fracture risk may be increased independent of BMD in patients with corticosteroid use, age greater than 65 years, or a history of prior fragility fracture. RECOMMENDATIONS: Follow-up in 2 years or as clinically indicated. Patients that are taking corticosteroids, are transplant recipients or have hyperparathyroidism should have annual follow-up. Follow-up scans should always be done on the same machine for accurate comparison. FOR MORE INFORMATION ABOUT DIAGNOSIS AND TREATMENT: [facility] for Osteoporosis and Metabolic Bone Disease:? [email or web address] /osteo National Osteoporosis Foundation:? www.nof.org International Society of Clinical Densitometry www.iscd.org Weatherization Operations Manager: YUSEF Transcribe Date/Time: Aug 12 2024 2:27P Dictated by : CONNER MARTINEZ MD This examination was interpreted and the report reviewed and electronically signed by: CONNER MARTINEZ MD on Aug 12 2024 2:30PM [facility] DIVISION OF RADIOLOGY Radiology Study observation (narrative) Ling sena [facility] Lindy 06-27-2024 CRISTIAN Telephone (FAMPWS) CALISTA CANNON ([id number]) 1950 F Date Time Provider Department [facility] During your visit today, we recorded the following information about you: Pepper Sousa APRN.VIVIAN 06/27/2024 12:23 PM Signed Can you please call the patient and let her know that I reviewed her x-ray results. X-ray of lumbar spine did show a compression fracture in L1 and arthritis. It is important that she gets adequate calcium and vitamin D in the diet. I would recommend getting a repeat bone density to evaluate for osteoporosis. This fracture can take some time to heal. If pain does not improve then I would recommend a consult with spine medicine. Please let me know what she prefers regarding bone density testing. Thank you Pepper Sousa APRN.Amirah Garrett LPN 06/27/2024 2:50 PM Signed TC to ptTyrell LM to call office, ask for triage nurse to get results. BRITT Hurst Beth, LPN 06/28/2024 11:27 AM Signed Patient returned call and went over results, notes from Pepper Sousa CLASSROOM PARAPROFESSIONAL with understanding. Patient is willing to do the bone density test. Pepper Sousa APRN.VIVIAN 06/28/2024 3:01 PM Signed BONE MINERAL DENSITY PATIENT INSTRUCTIONS Bone mineral density testing measures the amount of calcium in certain parts of your bones. This information determines how strong your bones are. The test is used to detect osteoporosis, a disease in which the bone's mineral content and density are low, increasing a person's risk of fractures. The lumbar spine (lower back) and the hip are the skeletal sites usually examined. For the test, remember that: 1. You cannot take this test if you are . 2. Eat a normal diet on the day of the test. 3. Take your medications as you normally would. 4. DO NOT take calcium supplements (such as Tums) for 24 hours before the test. 5. On the day of the test, leave valuables (jewelry or credit cards) at home. 6. The test should be performed prior to oral, rectal or IV contrast studies, or at least 7 days after any of these studies. For the test, you may be asked to wear a hospital gown. You will lie on your back, on a padded table, in a comfortable position. Generally, you can resume your usual activities immediately. Pepper Sousa APRN.CNP 06/28/2024 3:03 PM Signed Order for bone density has been placed. She may have this completed at her convenience. JOCELINE Khoury Kathryn, MA 06/28/2024 3:03 PM Signed Please call pt to set up BMD test. DEMARCUS Sage Kathryn, MA 07/01/2024 12:41 PM Signed Notified via [employer] that test has been ordered and she can call in to schedule. Elin James MA Allergies As of Date: 06/27/2024 Noted Allergy Reaction GLUTEN 04/19/2005 SULFA (SULFONAMIDE ANTIBIOTICS) 04/18/2005 Date Reviewed: 06/24/2024 Reviewed by: Amirah Gutiérrez LPN - Fully Assessed Reason for Visit: Results [95] Cmt: Lumbar xray Primary Visit Diagnosis:Asymptomati c postmenopausal status [Z78.0] Order(s):DXA-AXIAL SKELETON [4767736] Order #: [id number] FUTURE BD DXA TRABECULAR BONE SCORE (TBS) [3461800] Order #: [id number] FUTURE Prescriptions as of 07/01/2024 - colestipol (COLESTID) 1 gram tablet Take 3 tablets by mouth two times a day. - diphenoxylate-atropin e (LOMOTIL) 2.5-0.025 mg per tablet Take 1 tablet by mouth four times a day as needed for diarrhea for up to 360 days. - ferrous sulfate 325 mg (65 mg iron) tablet Take 1 tablet by mouth daily with breakfast. - hyoscyamine SR (LEVBID) 0.375 mg 12 hr tablet Take 1 tablet by mouth two times a day. - levothyroxine (SYNTHROID) 88 mcg tablet Take 1 tablet by mouth once daily. Take on empty stomach. - meloxicam (MOBIC) 15 mg tablet Take 1 tablet by mouth once daily. With food. - cyclobenzaprine (FLEXERIL) 5 mg tablet Take 1 tablet by mouth daily at bedtime. - loperamide (IMODIUM) 2 mg cap(s) TAKE 1 CAPSULE BY MOUTH WITH EACH MEAL DAILY - MULTI-VITAMIN TAB Take one(1) tablet daily. Problem List As Of Date 06/27/2024 Noted Resolved ESOPHAGEAL REFLUX [K21.9] Major depressive disorder, single episode, unsp* 06/28/2017 CELIAC DISEASE [K90.0] Disorders of bursae and tendons in shoulder reg*06/14/2005 05/05/2016 SYMPTOMATIC FEMALE CLIMACTERIC STATE [N95.1] 01/17/2007 Esophagitis, unspecified [K20.90] 05/18/2007 05/05/2016 ACUTE GASTRITIS W/O HEMORRHAGE [K29.00] 05/18/2007 Cervical Neck Pain with Evidence of Disc Diseas*08/25/2009 Collagenous colitis [K52.831] 04/21/2010 Hypothyroidism [E03.9] 06/06/2011 Vitamin D deficiency [E55.9] 06/06/2011 05/05/2016 Hyperlipidemia [E78.5] 06/21/2012 Left knee pain [M25.562] 05/02/2013 CMC arthritis [M19.049] 07/08/2013 Trigger middle finger of right hand [M65.331] 07/08/2013 05/05/2016 Fibrocystic breast disease [N (more content not included)... Normal [facility] CNOVon 06-24-2024 CNOV Office Visit (FAMPWS ) CALISTA CANNON ([id number]) 1950 F Date Time Provider Department 06/24/24 11:00 AM [facility] During your visit today, we recorded the following information about you: Pulse Respiration Blood pressure Weight 78/minute 16/minute 106/66 62.1 kg Pepper Sousa APRN.SENIOR PRINCIPAL ARCHITECT 06/24/2024 1:06 PM Signed This is a 74 year old female who presents today with: Patient presents with: 6 Month Exam HISTORY OF PRESENT ILLNESS: Calista Cannon is a 74 year old female. Patient presents with: 6 Month Exam 6 month follow up On going back pain: Seems to come and go. Started after trying to fiber picker when he was ill. Pain is an ache. Using Tylenol and Meloxicam. Has applied heat to the area. No numbness or tingling to the area. Chronic diarrhea. Takes Imodium prn, Lomotil 2.5-0.025 mg 1 tab po QID prn and Cloestipol 1 gram, 3 tablets BID, Levbid 0.375 mg 1 tab po bid. Hx of celiac disease, eats gluten free. Used to follow with gastroenterology. Medication helps control how many episodes she has per day. Thyroid -taking Synthroid 88 mcg once daily. Denies palpitations, difficulty swallowing, or cold/heat intolerances. Lipids - Denies any exercise due to chronic knee pain issues. Tries to watch diet. On Colestipol 1 gram 3 tabs po bid. Anemia - Takes Iron every other day. Monitoring through routine labs. Pain - Chronic knee pain. Taking Mobic 15 mg once daily prn, Tylenol prn and Flexeril prn. Has previously seen with [facility]. Has been told in the past she needs b/l knee replacement due to stage IV arthritis. Hx of cortisone injections and Gel-One injections. Colonoscopy: Last completed in 2014, will be due in 2024. Would like to wait. Mammogram: Last completed in 2023. Pap: Last completed in 2015. Denied wanting at this time. PAST MEDICAL HISTORY: PAST MEDICAL HISTORY Diagnosis Date Acute gastritis without mention of hemorrhage Collagenous colitis 04/21/2010 Diarrhea Esophageal reflux Esophagitis, unspecified Fibrocystic breast disease 03/27/2014 Hyperlipidemia 06/21/2012 Hypothyroidism 06/06/2011 PAST SURGICAL HISTORY Procedure Laterality Date APPENDECTOMY remote open COLONOSCOPY FLX DX W/COLLJ SPEC WHEN PFRMD 11/13/92 Colonoscopy COLONOSCOPY FLX DX W/COLLJ SPEC WHEN PFRMD 01/21/2015 Colonoscopy COLONOSCOPY W/BIOPSY SINGLE/MULTIPLE 05/18/07 EGD TRANSORAL BIOPSY SINGLE/MULTIPLE 05/18/07 ESOPHAGOGASTRODUODENO SCOPY TRANSORAL DIAGNOSTIC 01/21/2015 EGD PAST SURGICAL HISTORY OF 03/2010 cervical fusion C4-C5 PAST SURGICAL HISTORY OF 07/03/2013 right thumb CMC arthroplasty and right middle trigger release ALLERGIES Gluten and Sulfa (Sulfonamide Antibiotics) MEDICATIONS Current Outpatient Medications Medication Sig levothyroxine (SYNTHROID) 88 mcg tablet Take 1 tablet by mouth once daily. Take on empty stomach. cyclobenzaprine (FLEXERIL) 5 mg tablet Take 1 tablet by mouth daily at bedtime. colestipol (COLESTID) 1 gram tablet Take 3 tablets by mouth two times a day. diphenoxylate-atropin e (LOMOTIL) 2.5-0.025 mg per tablet Take 1 tablet by mouth four times a day as needed for diarrhea for up to 360 days. loperamide (IMODIUM) 2 mg cap(s) TAKE 1 CAPSULE BY MOUTH WITH EACH MEAL DAILY ferrous sulfate 325 mg (65 mg iron) tablet Take 1 tablet by mouth daily with breakfast. hyoscyamine SR (LEVBID) 0.375 mg 12 hr tablet Take 1 tablet by mouth twice daily. meloxicam (MOBIC) 15 mg tablet Take 1 tablet by mouth once daily. With food. MULTI-VITAMIN TAB Take one(1) tablet daily. No current facility-administered medications for this visit. FAMILY HISTORY Problem Relation Age of Onset Hypertension Father Diabetes Father Cancer Father LUNG Diabetes Mother Hypertension Mother Thyroid Mother Thyroid Brother Hypertension Brother Cancer Brother TESTICULAR CA Social History Tobacco Use Smoking status: Never Smokeless tobacco: Never Substance Use Topics Alcohol use: No Drug use: No REVIEW OF SYSTEMS GENERAL: No weight loss, malaise or fevers/chills HEENT: Negative for frequent or significant headaches, No changes in hearing or vision. NECK: Negative for lumps, goiter, pain and significant neck swelling RESPIRATORY: Negative for cough, hemoptysis, wheezing, dyspnea or shortness of breath CARDIOVASCULAR: Negative for chest pain, leg swelling, orthopnea, or palpitations GI: No nausea, vomiting, or diarrhea/constipation . No hematochezia/melena. No heartburn or reflux symptoms. : No history of dysuria, frequency or incontinence MUSCULOSKELETAL: + Back Pain . SKIN: Negative for lesions, rash, and itching ENDOCRINE: Negative for cold or heat intolerance, polyuria, polydipsia and goiter NEURO: No history of headaches, syncope, paralysis, seizures or tremors MOOD: Negative for depression, anxiety, or suicidal ideation. (more content not included)... Normal [facility] XR LUMBAR 3V AP/LAT/L5-S1on 06-24-2024 XR LUMBAR 3V AP/LAT/L5-S1 * * *Final Report* * * DATE OF EXAM: Jun 24 2024 11:51AM [facility]OX [id number] - XR LUMBAR 3V AP/LAT/L5-S1 / PROCEDURE REASON: Acute midline low back pain without sciatica * * * * Physician Interpretation * * * * EXAMINATION: XR LUMBAR 3V AP/LAT/L5-S1 CLINICAL HISTORY: Low back pain Technique: XR LUMBAR 3V AP/LAT/L5-S1 -- NOT APPLICABLE with 3 views on 3 images Comparison: CT abdomen and pelvis 11/10/2016 RESULT: Counting reference: Lumbosacral junction. For the purposes of this report, L4-5 is considered the level of the iliac crest and assume there are 5 lumbar-type vertebrae. Anatomic variant: None. Compression fracture of the vertebral body of L1 has developed since the prior CT. Mild scoliosis of the lumbar spine with a leftward convexity. Minimal retrolisthesis of L1 on L2. Multilevel degenerative disc disease and facet joint degenerative disease. IMPRESSION: Compression fracture of the vertebral body of L1 has developed since the prior study Weatherization Operations Manager: YUSEF Transcribe Date/Time: Jun 27 2024 11:31A Dictated by : RADHIKA PA MD This examination was interpreted and the report reviewed and electronically signed by: RADHIKA PA MD on Jun 27 2024 11:33AM EST [id number] N Normal [facility] 25(OH)D3 SerPl-mCncon 2024 25-hydroxyvitamin D3 [Mass/Vol] 71.5 ng/mL Normal 31.0-80.0 [facility] Comment on above: Order Comment: Speci men Type: BLOOD SPECIMEN Ordering Facility: [facility] Address: [address] [place] [address] Result Comment: Clas sification of 25 OH Vitamin D status: Deficiency/Insufficiency: < or = 30 ng/ml. Sufficiency/Optimal Levels: 31-80 ng/mL Toxicity: > 100 ng/mL. Test performed by chemiluminescent immunoassay. Performed By: #### 1 989-3 #### [facility] CLIA [id number] [address] [place] [address] [place] CBC W Auto Differential pane l (Bld)on 06-20-2024 Basophils (Bld) [#/Vol] 0.04 10*3/uL Normal <0.11 [facility] Comment on above: Order Comment: Speci men Type: BLOOD SPECIMEN Ordering Facility: [facility] Address: [address] [place] [address] Performed By: #### 5 7021-8 #### [facility] CLIA [id number] [address] [place] [address] [place] Basophils/100 WBC (Bld) 1.0 % Normal [facility] Comment on above: Order Comment: Speci men Type: BLOOD SPECIMEN Ordering Facility: [facility] Address: [address] [place] [address] Performed By: #### 5 7021-8 #### [facility] CLIA [id number] [address] [place] [address] [place] Differential cell count method Nom (Bld) Auto Normal [facility] Comment on above: Order Comment: Speci men Type: BLOOD SPECIMEN Ordering Facility: [facility] Address: [address] [place] [address] Performed By: #### 5 7021-8 #### [facility] CLIA [id number] [address] [place] [address] [place] Eosinophils (Bld) [#/Vol] 0.06 10*3/uL Normal <0.46 [facility] Comment on above: Order Comment: Speci men Type: BLOOD SPECIMEN Ordering Facility: [facility] Address: [address] [place] [address] Performed By: #### 5 7021-8 #### [facility] CLIA [id number] [address] [place] [address] [place] Eosinophils/100 WBC (Bld) 1.5 % Normal [facility] Comment on above: Order Comment: Speci men Type: BLOOD SPECIMEN Ordering Facility: [facility] Address: [address] [place] [address] Performed By: #### 5 7021-8 #### [facility] CLIA [id number] [address] [place] [address] [place] Erythrocyte distribution width (RBC) [Ratio] 13.2 % Normal 11.5-15.0 [facility] Comment on above: Order Comment: Speci men Type: BLOOD SPECIMEN Ordering Facility: [facility] Address: [address] [place] [address] Performed By: #### 5 7021-8 #### [facility] CLIA [id number] [address] [place] [address] [place] Hematocrit (Bld) [Volume fraction] 40.7 % Normal 36.0-46.0 [facility] Comment on above: Order Comment: Speci men Type: BLOOD SPECIMEN Ordering Facility: [facility] Address: [address] [place] [address] Performed By: #### 5 7021-8 #### [facility] CLIA [id number] [address] [place], [place] [id number] [place] Hemoglobin (Bld) [Mass/Vol] 13.1 g/dL Normal 11.5-15.5 [facility] Comment on above: Order Comment: Speci men Type: BLOOD SPECIMEN Ordering Facility: [facility] Address: [address] [place] [address] Performed By: #### 5 7021-8 #### [facility] CLIA [id number] [address] [place] [address] [place] Immature granulocytes (Bld) [#/Vol] 10*3/uL Normal <0.10 [facility] Comment on above: Order Comment: Speci men Type: BLOOD SPECIMEN Ordering Facility: [facility] Address: [address] [place] [address] Performed By: #### 5 7021-8 #### [facility] CLIA [id number] [address] [place] [address] [place] Immature granulocytes/100 WBC (Bld) 0.2 % Normal [facility] Comment on above: Order Comment: Speci men Type: BLOOD SPECIMEN [facility] [facility] Address: [address] [place] [address] Performed By: #### 5 7021-8 #### [facility] CLIA [id number] [address] [place] [address] [place] Lymphocytes (Bld) [#/Vol] 0.96 10*3/uL Low 1.00-4.00 [facility] Comment on above: Order Comment: Speci men Type: BLOOD SPECIMEN Ordering Facility: [facility] Address: [address] [place] [address] Performed By: #### 5 7021-8 #### [facility] CLIA [id number] [address] [place] [address] [place] Lymphocytes/100 WBC (Bld) 23.7 % Normal [facility] Comment on above: Order Comment: Speci men Type: BLOOD SPECIMEN Ordering Facility: [facility] Address: [address] [place] [address] Performed By: #### 5 7021-8 #### [facility] CLIA [id number] [address] [place] [address] [place] MCH (RBC) [Entitic mass] 30.8 pg Normal 26.0-34.0 [facility] Comment on above: Order Comment: Speci men Type: BLOOD SPECIMEN Ordering Facility: [facility] Address: [address] [place] [address] Performed By: #### 5 7021-8 #### [facility] CLIA [id number] [address] [place] [address] [place] MCHC (RBC) [Mass/Vol] 32.2 g/dL Normal 30.5-36.0 [facility] Comment on above: Order Comment: Speci men Type: BLOOD SPECIMEN Ordering Facility: [facility] Address: [address] [place] [address] Performed By: #### 5 7021-8 #### [facility] CLIA [id number] [address] [place] [address] [place] MCV (RBC) [Entitic vol] 95.5 fL Normal 80.0-100.0 [facility] Comment on above: Order Comment: Speci men Type: BLOOD SPECIMEN Ordering Facility: [facility] Address: [address] [place] [address] Performed By: #### 5 7021-8 #### [facility] CLIA [id number] [address] [place] [address] [place] Monocytes (Bld) [#/Vol] 0.39 10*3/uL Normal <0.87 [facility] Comment on above: Order Comment: Speci men Type: BLOOD SPECIMEN Ordering Facility: [facility] Address: [address] [place] [address] Performed By: #### 5 7021-8 #### [facility] CLIA [id number] [address] [place] [address] [place] Monocytes/100 WBC (Bld) 9.6 % Normal [facility] Comment on above: Order Comment: Speci men Type: BLOOD SPECIMEN Ordering Facility: [facility] Address: [address] [place] [address] Performed By: #### 5 7021-8 #### [facility] CLIA [id number] [address] [place] [address] [place] Neutrophils (Bld) [#/Vol] 2.59 10*3/uL Normal 1.45-7.50 [facility] Comment on above: Order Comment: Speci men Type: BLOOD SPECIMEN Ordering Facility: [facility] Address: [address] [place] [address] Performed By: #### 5 7021-8 #### [facility] CLIA [id number] [address] [place] [address] [place] Neutrophils/100 WBC (Bld) 64.0 % Normal [facility] Comment on above: Order Comment: Speci men Type: BLOOD SPECIMEN Ordering Facility: [facility] Address: [address] [place] [address] Performed By: #### 5 7021-8 #### [facility] CLIA [id number] [address] [place] [address] [place] Nucleated RBC (Bld) [#/Vol] 10*3/uL Normal <0.01 [facility] Comment on above: Order Comment: Speci men Type: BLOOD SPECIMEN Ordering Facility: [facility] Address: [address] [place] [address] Performed By: #### 5 7021-8 #### [facility] CLIA [id number] [address] [place] [address] [place] Nucleated RBC/100 WBC (Bld) [Ratio] 0.0 /100 WBC Normal [facility] Comment on above: Order Comment: Speci men Type: BLOOD SPECIMEN Ordering Facility: [facility] Address: [address] [place] [address] Performed By: #### 5 7021-8 #### [facility] CLIA [id number] [address] [place] [address] [place] Platelet mean volume (Bld) [Entitic vol] 10.3 fL Normal 9.0-12.7 [facility] Comment on above: Order Comment: Speci men Type: BLOOD SPECIMEN Ordering Facility: [facility] Address: [address] [place] [address] Performed By: #### 5 7021-8 #### [facility] CLIA [id number] [address] [place] [address] [place] Platelets (Bld) [#/Vol] 326 10*3/uL Normal 150-400 [facility] Comment on above: Order Comment: Speci men Type: BLOOD SPECIMEN Ordering Facility: [facility] Address: [address] [place] [address] Performed By: #### 5 7021-8 #### [facility] CLIA [id number] [address] [place] [address] [place] RBC (Bld) [#/Vol] 4.26 10*6/uL Normal 3.90-5.20 [facility] Comment on above: Order Comment: Speci men Type: BLOOD SPECIMEN Ordering Facility: [facility] Address: [address] [place] [address] Performed By: #### 5 7021-8 #### [facility] CLIA [id number] [address] [place] [address] [place] WBC (Bld) [#/Vol] 4.05 10*3/uL Normal 3.70-11.00 [facility] Comment on above: Order Comment: Speci men Type: BLOOD SPECIMEN Ordering Facility: [facility] Address: [address] [place] [address] Performed By: #### 5 7021-8 #### [facility] CLIA [id number] [address] [place] [address] [place] Comprehensive metabolic 2000 panelon 06-20-2024 Albumin [Mass/Vol] 3.8 g/dL Low 3.9-4.9 [facility] Comment on above: Order Comment: Speci men Type: BLOOD SPECIMEN Ordering Facility: [facility] Address: [address] [place] [address] Performed By: #### 3 016-3, 39480-6, 05390-2, 56319-8 #### [facility] CLIA [id number] [address] [place] [address] [place] ALP [Catalytic activity/Vol] 59 U/L Normal 34-123 [facility] Comment on above: Order Comment: Speci men Type: BLOOD SPECIMEN Ordering Facility: [facility] Address: [address] [place] [address] Performed By: #### 3 016-3, 45890-6, 55376-5, 31286-9 #### [facility] CLIA [id number] [address] [place] [address] [place] ALT [Catalytic activity/Vol] 17 U/L Normal 7-38 [facility] Comment on above: Order Comment: Speci men Type: BLOOD SPECIMEN Ordering Facility: [facility] Address: [address] [place] [address] Performed By: #### 3 016-3, 10667-3, 32451-3, 96918-2 #### [facility] CLIA [id number] [address] [place] [address] [place] Anion gap [Moles/Vol] 12 mmol/L Normal 8-15 [facility] Comment on above: Order Comment: Speci men Type: BLOOD SPECIMEN Ordering Facility: [facility] Address: [address] [place] [address] Performed By: #### 3 016-3, 84714-6, 74413-6, 96562-4 #### [facility] CLIA [id number] [address] [place] [address] [place] AST [Catalytic activity/Vol] 21 U/L Normal 13-35 [facility] Comment on above: Order Comment: Speci men Type: BLOOD SPECIMEN Ordering Facility: [facility] Address: [address] [place] [address] Performed By: #### 3 016-3, 47866-1, 64289-7, 82185-6 #### [facility] CLIA [id number] [address] [place] [address] [place] Bilirubin [Mass/Vol] 0.3 mg/dL Normal 0.2-1.3 [facility] Comment on above: Order Comment: Speci men Type: BLOOD SPECIMEN Ordering Facility: [facility] Address: [address] [place] [address] Performed By: #### 3 016-3, 72917-3, 27693-3, 53823-2 #### [facility] CLIA [id number] [address] [place] [address] [place] Calcium [Mass/Vol] 8.9 mg/dL Normal 8.5-10.2 [facility] Comment on above: Order Comment: Speci men Type: BLOOD SPECIMEN Ordering Facility: [facility] Address: [address] [place] [address] Performed By: #### 3 016-3, 70160-1, 22677-1, 93893-5 #### [facility] CLIA [id number] [address] [place] [address] [place] Chloride [Moles/Vol] 107 mmol/L Normal 98-107 [facility] Comment on above: Order Comment: Speci men Type: BLOOD SPECIMEN Ordering Facility: [facility] Address: [address] [place] [address] Performed By: #### 3 016-3, 80910-1, 74452-6, 65683-7 #### [facility] CLIA [id number] [address] [place] [address] [place] CO2 [Moles/Vol] 23 mmol/L Normal 22-30 [facility] Comment on above: Order Comment: Speci men Type: BLOOD SPECIMEN Ordering Facility: [facility] Address: [address] [place] [address] Performed By: #### 3 016-3, 95492-7, 49958-0, 78468-5 #### [facility] CLIA [id number] [address] [place] [address] [place] Creatinine [Mass/Vol] 0.57 mg/dL Low 0.58-0.96 [facility] Comment on above: Order Comment: Speci men Type: BLOOD SPECIMEN Ordering Facility: [facility] Address: [address] [place] [address] Performed By: #### 3 016-3, 56490-9, , #### [facility] CLIA [id number] [address] [place] [address] [place] Creatinine and Glomerular filtration rate.predicted panel (S/P/Bld) 96 mL/min/1.73m??? Normal >=60 [facility] Comment on above: Order Comment: Speci men Type: BLOOD SPECIMEN Ordering Facility: [facility] Address: [address] [place] [address] Result Comment: Heydi mated Glomerular Filtration Rate (eGFR) is calculated using the 2020 CKD-EPI creatinine equation. This equation utilizes serum creatinine, sex, and age as parameters. The creatinine assay has traceable calibration to isotope dilution-mass spectrometry. Refer to KDIGO guidelines for clinical interpretation. In patients with unstable renal function, e.g. those with acute kidney injury, the eGFR may not accurately reflect actual GFR. Performed By: #### 3 016-3, 23065-9, 34399-8, 97379-5 #### [facility] CLIA [id number] [address] [place] [address] [place] Glucose [Mass/Vol] 77 mg/dL Normal 74-99 [facility] Comment on above: Order Comment: Margie aguirre Type: BLOOD SPECIMEN Ordering Facility: [facility] Address: [address] [place] [address] Result Comment: The [place] [employer] (ADA) provides guidance for cutoff values for fasting glucose and random glucose. The ADA defines fasting as no caloric intake for at least 8 hours. Fasting plasma glucose results between 100 to 125 mg/dL indicate increased risk for diabetes (prediabetes). Fasting plasma glucose results greater than or equal to 126 mg/dL meet the criteria for diagnosis of diabetes. In the absence of unequivocal hyperglycemia, results should be confirmed by repeat testing. In a patient with classic symptoms of hyperglycemia or hyperglycemic crisis, random plasma glucose results greater than or equal to 200 mg/dL meet the criteria for diagnosis of diabetes. Reference: Standards of Medical Care in Diabetes 2016, [place] [employer]. Diabetes Care. 2016.39(Suppl 1). Performed By: #### 3 016-3, 13270-3, 45774-9, 48270-3 #### [facility] CLIA [id number] [address] [place] [address] [place] Potassium [Moles/Vol] 3.8 mmol/L Normal 3.7-5.1 [facility] Comment on above: Order Comment: Margie aguirre Type: BLOOD SPECIMEN Ordering Facility: [facility] Address: [address] [place] [address] Performed By: #### 3 016-3, 67815-2, 65510-5, 12671-3 #### [facility] CLIA [id number] [address] [place] [address] [place] Protein [Mass/Vol] 6.7 g/dL Normal 6.3-8.0 [facility] Comment on above: Order Comment: Margie aguirre Type: BLOOD SPECIMEN Ordering Facility: [facility] Address: [address] [place] [address] Performed By: #### 3 016-3, 00454-3, 21345-0, 49364-5 #### [facility] CLIA [id number] [address] [place] [address] [place] Sodium [Moles/Vol] 142 mmol/L Normal 136-144 [facility] Comment on above: Order Comment: Speci men Type: BLOOD SPECIMEN Ordering Facility: [facility] Address: [address] [place] [address] Performed By: #### 3 016-3, 73545-9, 77523-3, 00148-2 #### [facility] CLIA [id number] [address] [place] [address] [place] Urea nitrogen [Mass/Vol] 15 mg/dL Normal 7-21 [facility] Comment on above: Order Comment: Speci men Type: BLOOD SPECIMEN Ordering Facility: [facility] Address: [address] [place] [address] Performed By: #### 3 016-3, 47345-5, 42452-9, 44947-8 #### [facility] CLIA [id number] [address] [place] [address] [place] Iron and Iron binding capaci ty panelon 06-20-2024 Iron [Mass/Vol] 71 ug/dL Normal 41-186 [facility] Comment on above: Order Comment: Speci men Type: BLOOD SPECIMEN Ordering Facility: [facility] Address: [address] [place] [address] Performed By: #### 3 016-3, 77441-6, 46447-3, 58710-4 #### [facility] CLIA [id number] [address] [place] [address] [place] Iron binding capacity [Mass/Vol] 340 ug/dL Normal 232-386 [facility] Comment on above: Order Comment: Speci men Type: BLOOD SPECIMEN Ordering Facility: [facility] Address: [address] [place] [address] Performed By: #### 3 016-3, 40499-0, 18132-9, 87005-3 #### [facility] CLIA [id number] [address] [place] [address] [place] Iron/TIBC [Molar ratio] 20.9 % Normal 15.0-57.0 [facility] Comment on above: Order Comment: Speci men Type: BLOOD SPECIMEN Ordering Facility: [facility] Address: [address] [place] [address] Performed By: #### 3 016-3, 79597-9, 58698-4, 76442-1 #### [facility] CLIA [id number] [address] [place] [address] [place] Lipid 1996 panelon 5 Cholesterol [Mass/Vol] 231 mg/dL High <200 [facility] Comment on above: Order Comment: Speci men Type: BLOOD SPECIMEN Ordering Facility: [facility] Address: [address] [place] [address] Result Comment: <200 mg/dL, Desirable 200-239 mg/dL, Borderline high >239 mg/dL, High Performed By: #### 3 016-3, 89155-7, 24381-7, 41210-0 #### [facility] CLIA [id number] [address] [place] [address] [place] Cholesterol in HDL [Mass/Vol] 82 mg/dL Normal >39 [facility] Comment on above: Order Comment: Speci men Type: BLOOD SPECIMEN Ordering Facility: [facility] Address: [address] [place] [address] Result Comment: 40-5 9 mg/dL, Acceptable >59 mg/dL, High: Negative risk factor for coronary heart disease <40 mg/dL, Low: Positive risk factor for coronary heart disease Performed By: #### 3 016-3, 29279-7, 83935-8, 98040-0 #### [facility] CLIA [id number] [address] [place] [address] [place] Cholesterol in LDL [Mass/Vol] 134 mg/dL High <100 [facility] Comment on above: Order Comment: Margie aguirre Type: BLOOD SPECIMEN Ordering Facility: [facility] Address: [address] [place] [address] Result Comment: <100 mg/dL, Optimal 100-129 mg/dL, Near optimal/above optimal 130-159 mg/dL, Borderline high 160-189 mg/dL, High >189 mg/dL, Very high Secondary prevention optimal LDL Cholesterol levels are recommended to be < 70 mg/dL Performed By: #### 3 016-3, 72376-8, 69803-8, 39721-5 #### [facility] CLIA [id number] [address] [place] [address] [place] Cholesterol in LDL/Cholesterol in HDL [Mass ratio] 1.63 {ratio} Normal <2.54 [facility] Comment on above: Order Comment: Margie aguirre Type: BLOOD SPECIMEN Ordering Facility: [facility] Address: [address] [place] [address] Result Comment: Refe duyce: 1. National Cholesterol Education Program ATP III Guideline At-A-Glance Quick Desk Reference: National Heart, Lung, and Blood [place]. National Institutes of Health. 2001: NIH Publication No. 01-3305. 2. An International Atherosclerosis Society position paper: global recommendations for the management of dyslipidemia: executive summary, Atherosclerosis. 2014: 232(2):410-413. Performed By: #### 3 016-3, 07812-2, 00621-5, 51791-9 #### [facility] CLIA [id number] [address] [place] [address] [place] Cholesterol in VLDL [Mass/Vol] 15 mg/dL Normal <30 [facility] Comment on above: Order Comment: Margie aguirre Type: BLOOD SPECIMEN Ordering Facility: [facility] Address: [address] [place] [address] Performed By: #### 3 016-3, 49095-7, 44047-2, 39396-1 #### [facility] CLIA [id number] [address] [place] [address] [place] Cholesterol non HDL [Mass/Vol] 149 mg/dL High <130 [facility] Comment on above: Order Comment: Speci men Type: BLOOD SPECIMEN Ordering Facility: [facility] Address: [address] [place] [address] Result Comment: <130 mg/dL, Optimal 130-159 mg/dL, Near optimal/above optimal 160-189 mg/dL, Borderline high 190-219 mg/dL, High >219 mg/dL, Very high Secondary prevention optimal non HDL Cholesterol levels are recommended to be <100 mg/dL Performed By: #### 3 016-3, 56147-3, 63678-6, 72282-4 #### [facility] CLIA [id number] [address] [place] [address] [place] Cholesterol.total/Sindi sterol in HDL [Mass ratio] 2.82 {ratio} Normal <5.10 [facility] Comment on above: Order Comment: Speci men Type: BLOOD SPECIMEN Ordering Facility: [facility] Address: [address] [place] [address] Performed By: #### 3 016-3, 62717-9, 67677-6, 54467-7 #### [facility] CLIA [id number] [address] [place] [address] [place] FASTING TIME 12 hrs Normal [facility] Comment on above: Order Comment: Speci men Type: BLOOD SPECIMEN Ordering Facility: [facility] Address: [address] [place] [address] Performed By: #### 3 016-3, 61832-0, 56814-5, 35734-6 #### [facility] CLIA [id number] [address] [place] [address] [place] Triglyceride [Mass/Vol] 76 mg/dL Normal <150 [facility] Comment on above: Order Comment: Speci men Type: BLOOD SPECIMEN Ordering Facility: [facility] Address: [address] [place] [address] Result Comment: <150 mg/dL, Normal 150-199 mg/dL, Borderline high 200-499 mg/dL, High >499 mg/dL, Very high Performed By: #### 3 016-3, 34291-7, 13333-1, 17594-4 #### [facility] CLIA [id number] [address] [place] [address] [place] TSH SerPl-aCncon 06-20-2024 TSH Qn 3.740 m[IU]/L Normal 0.270-4.200 [facility] Comment on above: Order Comment: Speci men Type: BLOOD SPECIMEN Ordering Facility: [facility] Address: [address] [place] [address] Performed By: #### 3 016-3, 37386-5, 68192-8, 84132-4 #### [facility] CLIA [id number] [address] [place] [address] [place] Lindy [facility]01-[facility] CALISTA CANNON ([id number]) 1950 F Date Time Provider Department 04/01[facility] During your visit today, we recorded the following information about you: Pepper Sousa APRN.CNP 04/01/2024 3:38 PM Signed Can you please call the patient and let her know that her mammogram was negative for any malignancy. She will be due for for repeat screening in 1 year. Thank you. Pepper Sousa APRN.Orquidea Song LPN 04/01/2024 3:52 PM Signed Left a message for pt to call the office and ask to speak to a nurse. BRITT Sierra M Robin, RONA 04/01/2024 4:28 PM Signed Pt returned call and given provider's message below with verbalized understanding. Allergies As of Date: 04/01/2024 Noted Allergy Reaction GLUTEN 04/19/2005 SULFA (SULFONAMIDE ANTIBIOTICS) 04/18/2005 Date Reviewed: 12/01/2023 Reviewed by: Amirah Gutiérrez LPN - Fully Assessed Reason for Visit: Results [95] Cmt: Mammogram Prescriptions as of 04/01/2024 - levothyroxine (SYNTHROID) 88 mcg tablet Take 1 tablet by mouth once daily. Take on empty stomach. - cyclobenzaprine (FLEXERIL) 5 mg tablet Take 1 tablet by mouth daily at bedtime. - colestipol (COLESTID) 1 gram tablet Take 3 tablets by mouth two times a day. - diphenoxylate-atropin e (LOMOTIL) 2.5-0.025 mg per tablet Take 1 tablet by mouth four times a day as needed for diarrhea for up to 360 days. - loperamide (IMODIUM) 2 mg cap(s) TAKE 1 CAPSULE BY MOUTH WITH EACH MEAL DAILY - ferrous sulfate 325 mg (65 mg iron) tablet Take 1 tablet by mouth daily with breakfast. - hyoscyamine SR (LEVBID) 0.375 mg 12 hr tablet Take 1 tablet by mouth twice daily. - meloxicam (MOBIC) 15 mg tablet Take 1 tablet by mouth once daily. With food. - MULTI-VITAMIN TAB Take one(1) tablet daily. Problem List As Of Date 04/01/2024 Noted Resolved ESOPHAGEAL REFLUX [K21.9] Major depressive disorder, single episode, unsp* 06/28/2017 CELIAC DISEASE [K90.0] Disorders of bursae and tendons in shoulder reg*06/14/2005 05/05/2016 SYMPTOMATIC FEMALE CLIMACTERIC STATE [N95.1] 01/17/2007 Esophagitis, unspecified [K20.90] 05/18/2007 05/05/2016 ACUTE GASTRITIS W/O HEMORRHAGE [K29.00] 05/18/2007 Cervical Neck Pain with Evidence of Disc Diseas*08/25/2009 Collagenous colitis [K52.831] 04/21/2010 Hypothyroidism [E03.9] 06/06/2011 Vitamin D deficiency [E55.9] 06/06/2011 05/05/2016 Hyperlipidemia [E78.5] 06/21/2012 Left knee pain [M25.562] 05/02/2013 CMC arthritis [M19.049] 07/08/2013 Trigger middle finger of right hand [M65.331] 07/08/2013 05/05/2016 Fibrocystic breast disease [N60.19] 03/27/2014 Cervical vertebral fusion [M43.22] 01/13/2015 PONV (postoperative nausea and vomiting) [R11.2*01/13/2015 Encounter for long-term (current) use of medica*12/25/2015 Unintentional weight loss [R63.4] 06/28/2017 Abnormal mammogram of right breast [R92.8] 01/05/2018 Encounter Status:Closed by Pérez ELLISON on 04/01/24 Normal [facility] CHIN SCREENING W TOMOon 03-27 CHIN SCREENING W HEIDI * * *Final Report* * * DATE OF EXAM: Mar 27 2024 10:37AM WRW [id number] - CHIN SCREENING W HEIDI / PROCEDURE REASON: Encounter for screening mammogram for malignant neoplasm of breast * * * * Physician Interpretation * * * * RESULT: [place] [address] HISTORY: Patient is 74 years old and is seen for screening and is asymptomatic in both breasts. The patient has no personal history of cancer. COMPARISON STUDIES: The present examination has been compared to prior imaging studies dated 01/04/2018 (mammogram) and 11/24/2021 (mammogram). MAMMOGRAM TECHNIQUE: The study was acquired using full field digital technology and interpreted from soft copy. Digital Breast Tomosynthesis (DBT) images were obtained and used to assist in the interpretation of this examination. Computer-aided detection was utilized by the radiologist in the interpretation of this examination. MAMMOGRAM FINDINGS: There are scattered areas of fibroglandular density. There is a stable area of architectural distortion in the right breast. There are no significant changes from the prior study. No suspicious masses, calcifications or other abnormalities are seen in either breast. IMPRESSION: There is no mammographic evidence of malignancy. Routine follow-up mammogram in 1 year is recommended. BI-RADS Category 2: Benign RISK: Based on the Tyrer-Cuzick (TC) risk assessment model, this patient has a 3.8% lifetime risk of developing breast cancer, meaning they are at average risk for developing breast cancer. However, this is only an estimate based on available history provided on the patient's questionnaire. We encourage all patients talk with their providers about these results, further recommendations for managing breast health, and appropriate supplemental screening options if the patient has dense breast tissue. Interpreting Radiologist: Adithya Lei M.D. Electronically signed on: 03/30/2024 Weatherization Operations Manager: DYLLAN Transcribe Date/Time: Mar 27 2024 10:03A Dictated by: ADITHYA LIE MD This examination was interpreted and the report reviewed and electronically signed by: ADITHYA LEI MD on Mar 30 2024 2:13PM EST [id number] N Normal [facility] CNOVon 12-01-2023 [facility] CALISTA CANNON ([id number]) 1950 F Date Time Provider Department 12/01/23 11:00 AM PEPPER SOUSA [facility] During your visit today, we recorded the following information about you: Pulse Respiration Blood pressure Weight 84/minute 16/minute 110/68 70.3 kg Pepper Sousa APRN.SENIOR PRINCIPAL ARCHITECT 12/01/2023 11:46 AM Signed This is a 73 year old female who presents today with: Patient presents with: 6 Month Exam HISTORY OF PRESENT ILLNESS: Calista Nazanin Cannon is a 73 year old female. Patient presents with: 6 Month Exam 6 month follow up Chest pain: Monday got central chest pain that radiated up into the bilateral shoulders. Increased pain with deep breaths. Symptoms lasted about 12 hours. Was lifting her off the floor. 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 Has not had any other episodes. Chronic diarrhea. Takes Imodium prn, Lomotil 2.5-0.025 mg 1 tab po QID prn and Cloestipol 1 gram, 3 tablets BID, Levbid 0.375 mg 1 tab po bid. Hx of celiac disease, eats gluten free. Used to follow with gastroenterology. Medication helps control how many episodes she has per day. Thyroid -taking Synthroid 75 mcg once daily. Denies any missed dosages. Denies palpitations, difficulty swallowing, or cold/heat intolerances. Lipids - Denies any exercise due to chronic knee pain issues. Tries to watch diet. On Colestipol 1 gram 3 tabs po bid. Anemia - Takes Iron every other day, due to if taking daily causes GI upset. Monitoring through routine labs. Pain - Chronic knee pain. Taking Mobic 15 mg once daily prn, Tylenol prn and Flexeril prn. Has previously seen with [facility], but not in quite some time. Has been told in the past she needs b/l knee replacement due to stage IV arthritis. Hx of cortisone injections and Gel-One injections. Colonoscopy: Last completed in 2014, will be due in 2024. Mammogram: Last completed in 2021. Pap: Last completed in 2015 PAST MEDICAL HISTORY: PAST MEDICAL HISTORY Diagnosis Date Acute gastritis without mention of hemorrhage Collagenous colitis 04/21/2010 Diarrhea Esophageal reflux Esophagitis, unspecified Fibrocystic breast disease 03/27/2014 Hyperlipidemia 06/21/2012 Hypothyroidism 06/06/2011 PAST SURGICAL HISTORY Procedure Laterality Date APPENDECTOMY remote open COLONOSCOPY FLX DX W/COLLJ SPEC WHEN PFRMD 11/13/92 Colonoscopy COLONOSCOPY FLX DX W/COLLJ SPEC WHEN PFRMD 01/21/2015 Colonoscopy COLONOSCOPY W/BIOPSY SINGLE/MULTIPLE 05/18/07 EGD TRANSORAL BIOPSY SINGLE/MULTIPLE 05/18/07 ESOPHAGOGASTRODUODENO SCOPY TRANSORAL DIAGNOSTIC 01/21/2015 EGD PAST SURGICAL HISTORY OF 03/2010 cervical fusion C4-C5 PAST SURGICAL HISTORY OF 07/03/2013 right thumb CMC arthroplasty and right middle trigger release ALLERGIES Gluten and Sulfa (Sulfonamide Antibiotics) MEDICATIONS Current Outpatient Medications Medication Sig levothyroxine (SYNTHROID) 88 mcg tablet Take 1 tablet by mouth once daily. Take on empty stomach. cyclobenzaprine (FLEXERIL) 5 mg tablet Take 1 tablet by mouth daily at bedtime. colestipol (COLESTID) 1 gram tablet Take 3 tablets by mouth two times a day. diphenoxylate-atropin e (LOMOTIL) 2.5-0.025 mg per tablet Take 1 tablet by mouth four times a day as needed for diarrhea for up to 360 days. loperamide (IMODIUM) 2 mg cap(s) TAKE 1 CAPSULE BY MOUTH WITH EACH MEAL DAILY ferrous sulfate 325 mg (65 mg iron) tablet Take 1 tablet by mouth daily with breakfast. hyoscyamine SR (LEVBID) 0.375 mg 12 hr tablet Take 1 tablet by mouth twice daily. meloxicam (MOBIC) 15 mg tablet Take 1 tablet by mouth once daily. With food. MULTI-VITAMIN TAB Take one(1) tablet daily. No current facility-administered medications for this visit. FAMILY HISTORY Problem Relation Age of Onset Hypertension Father Diabetes Father Cancer Father LUNG Diabetes Mother Hypertension Mother Thyroid Mother Thyroid Brother Hypertension Brother Cancer Brother TESTICULAR CA Social History Tobacco Use Smoking status: Never Smokeless tobacco: Never Substance Use Topics Alcohol use: No Drug use: No REVIEW OF SYSTEMS GENERAL: No weight loss, malaise or fevers/chills HEENT: Negative for frequent or significant headaches, No changes in hearing or vision. NECK: Negative for lumps, goiter, pain and significant neck swelling RESPIRATORY: Negative for cough, hemoptysis, wheezing, dyspnea or shortness of breath CARDIOVASCULAR: + Chest Pain GI: No nausea, vomiting, or diarrhea/constipation . No hematochezia/melena. No heartburn or reflux symptoms. : No history of dysuria, frequency or incontinence MUSCULOSKELETAL: Negative for joint pain or swelling. SKIN: Negative for lesions, rash, and itching ENDOCRINE: Negative for cold or heat intolerance, polyuria, polydipsia and goiter NEURO: No history of headaches, syncope, paralysis, seizures or tremors MOOD: N (more content not included)... Normal [facility] ECG COMPLETEon 12-01-2023 Atrial Rate 77 BPM [facility] Calculated P [place] 32 degrees [facility] Calculated R [place] 2 degrees [facility] Calculated T [place] 46 degrees [facility] P-R Interval 118 ms [facility] QRS Duration 86 ms [facility] QT Interval 406 ms [facility] QTC Calculation (Bazett) 459 ms [facility] Ventricular Rate 77 BPM [facility] NORMAL SINUS RHYTHM NORMAL ECG Confirmed by JOSUÉ ALDANA M.D. ([id number]) on 12/01/2023 4:11:07 PM [facility] NAME : CALISTA CANNON PID : [id number] : 1950 Gender : Female Race : ORD : [id number] Procedure Date : Dec 01 2023 11:15:12 Edit Date : Dec 01 2023 16:11:10 Diagnosis: NORMAL SINUS RHYTHM NORMAL ECG Confirmed by JOSUÉ ALDANA M.D. ([id number]) on 12/01/2023 4:11:07 PM Test Reason : R07.89 Other chest pain Location : 185 : [facility] Overread By : JOSUÉ ALDANA M.D. Edited By : JOSUÉ ALDANA M.D. Referred By : PEPPER SOUSA Acquired by : MARSHA, [facility] ECG COMPLETE Ventricular Rate : 7 7 BPM Atrial Rate : 77 BPM P-R Interval : 118 ms QRS Duration : 86 ms Q-T Interval : 406 ms QTC Calculation(Bazett) : 459 ms Calculated P [place] : 32 degrees Calculated R [place] : 2 degrees Calculated T [place] : 46 degrees NORMAL SINUS RHYTHM NORMAL ECG Confirmed by JOSUÉ ALDANA M.D. ([id number]) on 12/01/2023 4:11:07 PM NAME : CALISTA CANNON PID : [id number] : 1950 Gender : Female Race : ORD : [id number] Procedure Date : Dec 01 2023 11:15:12 Edit Date : Dec 01 2023 16:11:10 Diagnosis: NORMAL SINUS RHYTHM NORMAL ECG Confirmed by JOSUÉ ALDANA M.D. ([id number]) on 12/01/2023 4:11:07 PM Test Reason : R07.89 Other chest pain Location : 185 : [facility] Overread By : JOSUÉ ALDANA M.D. Edited By : JOSUÉ ALDANA M.D. Referred By : PEPPER SOUSA Acquired by : Gopal LARSON [facility] CBC W Auto Differential pane l (Bld)on 11-22-2023 Basophils (Bld) [#/Vol] 0.04 10*3/uL Normal <0.11 [facility] Comment on above: Order Comment: Speci men Type: BLOOD SPECIMEN Ordering Facility: [facility] Address: [address] [place] [address] Performed By: #### 3 016-3, 59004-0, 85183-0, 70028-2 #### [facility] CLIA [id number] [address] [place] [address] [place] Basophils/100 WBC (Bld) 0.8 % Normal [facility] Comment on above: Order Comment: Speci men Type: BLOOD SPECIMEN Ordering Facility: [facility] Address: [address] [place] [address] Performed By: #### 3 016-3, 81082-8, 94075-7, 31158-6 #### [facility] CLIA [id number] [address] [place] [address] [place] Differential cell count method Nom (Bld) Auto Normal [facility] Comment on above: Order Comment: Speci men Type: BLOOD SPECIMEN Ordering Facility: [facility] Address: [address] [place] [address] Performed By: #### 3 016-3, 47367-1, 37982-8, 15167-3 #### [facility] CLIA [id number] [address] [place] [address] [place] Eosinophils (Bld) [#/Vol] 0.07 10*3/uL Normal <0.46 [facility] Comment on above: Order Comment: Speci men Type: BLOOD SPECIMEN Ordering Facility: [facility] Address: [address] [place] [address] Performed By: #### 3 016-3, 70263-6, 60667-9, 83505-7 #### [facility] CLIA [id number] [address] [place] [address] [place] Eosinophils/100 WBC (Bld) 1.5 % Normal [facility] Comment on above: Order Comment: Speci men Type: BLOOD SPECIMEN Ordering Facility: [facility] Address: [address] [place] [address] Performed By: #### 3 016-3, 74384-1, 61392-3, 18969-7 #### [facility] CLIA [id number] [address] [place] [address] [place] Erythrocyte distribution width (RBC) [Ratio] 14.1 % Normal 11.5-15.0 [facility] Comment on above: Order Comment: Speci men Type: BLOOD SPECIMEN Ordering Facility: [facility] Address: [address] [place] [address] Performed By: #### 3 016-3, 12054-7, 56165-7, 86008-1 #### [facility] CLIA [id number] [address] [place] [address] [place] Hematocrit (Bld) [Volume fraction] 40.1 % Normal 36.0-46.0 [facility] Comment on above: Order Comment: Speci men Type: BLOOD SPECIMEN Ordering Facility: [facility] Address: [address] [place] [address] Performed By: #### 3 016-3, 45988-8, 29249-1, 87515-1 #### [facility] CLIA [id number] [address] [place] [address] [place] Hemoglobin (Bld) [Mass/Vol] 12.6 g/dL Normal 11.5-15.5 [facility] Comment on above: Order Comment: Speci men Type: BLOOD SPECIMEN Ordering Facility: [facility] Address: [address] [place] [address] Performed By: #### 3 016-3, 22307-8, 59396-4, 34384-7 #### [facility] CLIA [id number] [address] [place] [address] [place] Immature granulocytes (Bld) [#/Vol] 10*3/uL Normal <0.10 [facility] Comment on above: Order Comment: Speci men Type: BLOOD SPECIMEN Ordering Facility: [facility] Address: [address] [place] [address] Performed By: #### 3 016-3, 40084-2, 92256-2, 48441-1 #### [facility] CLIA [id number] [address] [place] [address] [place] Immature granulocytes/100 WBC (Bld) 0.4 % Normal [facility] Comment on above: Order Comment: Speci men Type: BLOOD SPECIMEN Ordering Facility: [facility] Address: [address] [place] [address] Performed By: #### 3 016-3, 00532-7, 53597-6, 01572-1 #### [facility] CLIA [id number] [address] [place] [address] [place] Lymphocytes (Bld) [#/Vol] 1.30 10*3/uL Normal 1.00-4.00 [facility] Comment on above: Order Comment: Speci men Type: BLOOD SPECIMEN Ordering Facility: [facility] Address: [address] [place] [address] Performed By: #### 3 016-3, 89269-4, 88768-3, 08700-7 #### [facility] CLIA [id number] [address] [place] [address] [place] Lymphocytes/100 WBC (Bld) 27.0 % Normal [facility] Comment on above: Order Comment: Speci men Type: BLOOD SPECIMEN Ordering Facility: [facility] Address: [address] [place] [address] Performed By: #### 3 016-3, 02837-2, 84340-7, 53366-2 #### [facility] CLIA [id number] [address] [place] [address] [place] MCH (RBC) [Entitic mass] 30.1 pg Normal 26.0-34.0 [facility] Comment on above: Order Comment: Speci men Type: BLOOD SPECIMEN Ordering Facility: [facility] Address: [address] [place] [address] Performed By: #### 3 016-3, 57141-2, 18016-4, 62075-8 #### [facility] CLIA [id number] [address] [place] [address] [place] MCHC (RBC) [Mass/Vol] 31.4 g/dL Normal 30.5-36.0 [facility] Comment on above: Order Comment: Speci men Type: BLOOD SPECIMEN Ordering Facility: [facility] Address: [address] [place] [address] Performed By: #### 3 016-3, 89317-0, 25686-0, 67426-6 #### [facility] CLIA [id number] [address] [place] [address] [place] MCV (RBC) [Entitic vol] 95.7 fL Normal 80.0-100.0 [facility] Comment on above: Order Comment: Speci men Type: BLOOD SPECIMEN Ordering Facility: [facility] Address: [address] [place] [address] Performed By: #### 3 016-3, 34593-5, 87769-2, 54065-1 #### [facility] CLIA [id number] [address] [place] [address] [place] Monocytes (Bld) [#/Vol] 0.47 10*3/uL Normal <0.87 [facility] Comment on above: Order Comment: Speci men Type: BLOOD SPECIMEN Ordering Facility: [facility] Address: [address] [place] [address] Performed By: #### 3 016-3, 97087-1, 07725-2, 53810-7 #### [facility] CLIA [id number] [address] [place] [address] [place] Monocytes/100 WBC (Bld) 9.8 % Normal [facility] Comment on above: Order Comment: Speci men Type: BLOOD SPECIMEN Ordering Facility: [facility] Address: [address] [place] [address] Performed By: #### 3 016-3, 18297-7, 36085-8, 65742-2 #### [facility] CLIA [id number] [address] [place] [address] [place] Neutrophils (Bld) [#/Vol] 2.92 10*3/uL Normal 1.45-7.50 [facility] Comment on above: Order Comment: Speci men Type: BLOOD SPECIMEN Ordering Facility: [facility] Address: [address] [place] [address] Performed By: #### 3 016-3, 89011-5, 59877-1, 21343-1 #### [facility] CLIA [id number] [address] [place] [address] [place] Neutrophils/100 WBC (Bld) 60.5 % Normal [facility] Comment on above: Order Comment: Speci men Type: BLOOD SPECIMEN Ordering Facility: [facility] Address: [address] [place] [address] Performed By: #### 3 016-3, 80182-4, 76647-5, 71161-8 #### [facility] CLIA [id number] [address] [place] [address] [place] Nucleated RBC (Bld) [#/Vol] 10*3/uL Normal <0.01 [facility] Comment on above: Order Comment: Speci men Type: BLOOD SPECIMEN Ordering Facility: [facility] Address: [address] [place] [address] Performed By: #### 3 016-3, 48742-0, 11217-9, 09212-0 #### [facility] CLIA [id number] [address] [place] [address] [place] Nucleated RBC/100 WBC (Bld) [Ratio] 0.0 /100 WBC Normal [facility] Comment on above: Order Comment: Speci men Type: BLOOD SPECIMEN Ordering Facility: [facility] Address: [address] [place] [address] Performed By: #### 3 016-3, 86677-0, 77742-4, 10521-0 #### [facility] CLIA [id number] [address] [place] [address] [place] Platelet mean volume (Bld) [Entitic vol] 9.8 fL Normal 9.0-12.7 [facility] Comment on above: Order Comment: Speci men Type: BLOOD SPECIMEN Ordering Facility: [facility] Address: [address] [place] [address] Performed By: #### 3 016-3, 19084-7, 02595-1, 30875-0 #### [facility] CLIA [id number] [address] [place] [address] [place] Platelets (Bld) [#/Vol] 308 10*3/uL Normal 150-400 [facility] Comment on above: Order Comment: Speci men Type: BLOOD SPECIMEN Ordering Facility: [facility] Address: [address] [place] [address] Performed By: #### 3 016-3, 85638-4, 46622-1, 31420-4 #### [facility] CLIA [id number] [address] [place] [address] [place] RBC (Bld) [#/Vol] 4.19 10*6/uL Normal 3.90-5.20 [facility] Comment on above: Order Comment: Speci men Type: BLOOD SPECIMEN Ordering Facility: [facility] Address: [address] [place] [address] Performed By: #### 3 016-3, 49188-9, 84183-3, 11342-4 #### [facility] CLIA [id number] [address] [place] [address] [place] WBC (Bld) [#/Vol] 4.82 10*3/uL Normal 3.70-11.00 [facility] Comment on above: Order Comment: Speci men Type: BLOOD SPECIMEN Ordering Facility: [facility] Address: [address] [place] [address] Performed By: #### 3 016-3, 65583-6, 73233-7, 05852-3 #### [facility] CLIA [id number] [address] [place] [address] [place] Comprehensive metabolic 2000 panelon 11-22-2023 Albumin [Mass/Vol] 4.0 g/dL Normal 3.9-4.9 [facility] Comment on above: Order Comment: Speci men Type: BLOOD SPECIMEN Ordering Facility: [facility] Address: [address] [place] [address] Performed By: #### 3 016-3, 96419-2, 24746-0, 25337-8 #### [facility] CLIA [id number] [address] [place] [address] [place] ALP [Catalytic activity/Vol] 53 U/L Normal 34-123 [facility] Comment on above: Order Comment: Speci men Type: BLOOD SPECIMEN Ordering Facility: [facility] Address: [address] [place] [address] Performed By: #### 3 016-3, 05280-2, 31976-1, 24211-4 #### [facility] CLIA [id number] [address] [place] [address] [place] ALT [Catalytic activity/Vol] 17 U/L Normal 7-38 [facility] Comment on above: Order Comment: Speci men Type: BLOOD SPECIMEN Ordering Facility: [facility] Address: [address] [place] [address] Performed By: #### 3 016-3, 59073-2, 60730-7, 23579-9 #### [facility] CLIA [id number] [address] [place] [address] [place] Anion gap [Moles/Vol] 7 mmol/L Low 8-15 [facility] Comment on above: Order Comment: Speci men Type: BLOOD SPECIMEN Ordering Facility: [facility] Address: [address] [place] [address] Performed By: #### 3 016-3, 66557-7, 73414-5, 23405-8 #### [facility] CLIA [id number] [address] [place] [address] [place] AST [Catalytic activity/Vol] 22 U/L Normal 13-35 [facility] Comment on above: Order Comment: Speci men Type: BLOOD SPECIMEN Ordering Facility: [facility] Address: [address] [place] [address] Performed By: #### 3 016-3, 95332-8, 43775-7, 62252-1 #### [facility] CLIA [id number] [address] [place] [address] [place] Bilirubin [Mass/Vol] 0.4 mg/dL Normal 0.2-1.3 [facility] Comment on above: Order Comment: Speci men Type: BLOOD SPECIMEN Ordering Facility: [facility] Address: [address] [place] [address] Performed By: #### 3 016-3, 80158-5, 90221-6, 69141-8 #### [facility] CLIA [id number] [address] [place] [address] [place] Calcium [Mass/Vol] 9.3 mg/dL Normal 8.5-10.2 [facility] Comment on above: Order Comment: Speci men Type: BLOOD SPECIMEN Ordering Facility: [facility] Address: [address] [place] [address] Performed By: #### 3 016-3, 91975-1, 94237-8, 99138-9 #### [facility] CLIA [id number] [address] [place], [place] [address] [place] Chloride [Moles/Vol] 106 mmol/L Normal 98-107 [facility] Comment on above: Order Comment: Speci men Type: BLOOD SPECIMEN Ordering Facility: [facility] Address: [address] [place] [address] Performed By: #### 3 016-3, 20894-4, 97777-6, 92054-5 #### [facility] CLIA [id number] [address] [place] [address] [place] CO2 [Moles/Vol] 26 mmol/L Normal 22-30 [facility] Comment on above: Order Comment: Speci men Type: BLOOD SPECIMEN Ordering Facility: [facility] Address: [address] [place] [address] Performed By: #### 3 016-3, 79404-9, 22289-2, 57173-2 #### [facility] CLIA [id number] [address] [place] [address] [place] Creatinine [Mass/Vol] 0.62 mg/dL Normal 0.58-0.96 [facility] Comment on above: Order Comment: Speci men Type: BLOOD SPECIMEN Ordering Facility: [facility] Address: [address] [place] [address] Performed By: #### 3 016-3, 36746-5, 99986-8, 35454-6 #### [facility] CLIA [id number] [address] [place] [address] [place] Creatinine and Glomerular filtration rate.predicted panel (S/P/Bld) 95 mL/min/1.73m??? Normal >=60 [facility] Comment on above: Order Comment: Speci men Type: BLOOD SPECIMEN Ordering Facility: [facility] Address: [address] [place] [address] Result Comment: Heydi mated Glomerular Filtration Rate (eGFR) is calculated using the 2020 CKD-EPI creatinine equation. This equation utilizes serum creatinine, sex, and age as parameters. The creatinine assay has traceable calibration to isotope dilution-mass spectrometry. Refer to KDIGO guidelines for clinical interpretation. In patients with unstable renal function, e.g. those with acute kidney injury, the eGFR may not accurately reflect actual GFR. Performed By: #### 3 016-3, 92133-4, 08071-3, 31831-2 #### [facility] CLIA [id number] [address] [place] [address] [place] Glucose [Mass/Vol] 83 mg/dL Normal 74-99 [facility] Comment on above: Order Comment: Margie aguirre Type: BLOOD SPECIMEN Ordering Facility: [facility] Address: [address] [place] [address] Result Comment: The [place] [employer] (ADA) provides guidance for cutoff values for fasting glucose and random glucose. The ADA defines fasting as no caloric intake for at least 8 hours. Fasting plasma glucose results between 100 to 125 mg/dL indicate increased risk for diabetes (prediabetes). Fasting plasma glucose results greater than or equal to 126 mg/dL meet the criteria for diagnosis of diabetes. In the absence of unequivocal hyperglycemia, results should be confirmed by repeat testing. In a patient with classic symptoms of hyperglycemia or hyperglycemic crisis, random plasma glucose results greater than or equal to 200 mg/dL meet the criteria for diagnosis of diabetes. Reference: Standards of Medical Care in Diabetes 2016, [place] [employer]. Diabetes Care. 2016.39(Suppl 1). Performed By: #### 3 016-3, 62582-9, 69668-4, 83690-8 #### [facility] CLIA [id number] [address] [place] [address] [place] Potassium [Moles/Vol] 4.3 mmol/L Normal 3.7-5.1 [facility] Comment on above: Order Comment: Margie aguirre Type: BLOOD SPECIMEN Ordering Facility: [facility] Address: [address] [place] [address] Performed By: #### 3 016-3, 67432-1, 22942-2, 63801-3 #### [facility] CLIA [id number] [address] [place] [address] [place] Protein [Mass/Vol] 6.5 g/dL Normal 6.3-8.0 [facility] Comment on above: Order Comment: Speci men Type: BLOOD SPECIMEN Ordering Facility: [facility] Address: [address] [place] [address] Performed By: #### 3 016-3, 59133-4, 89037-2, 88969-1 #### [facility] CLIA [id number] [address] [place] [address] [place] Sodium [Moles/Vol] 139 mmol/L Normal 136-144 [facility] Comment on above: Order Comment: Speci men Type: BLOOD SPECIMEN Ordering Facility: [facility] Address: [address] [place] [address] Performed By: #### 3 016-3, 42457-3, 25517-1, 82807-9 #### [facility] CLIA [id number] [address] [place] [address] [place] Urea nitrogen [Mass/Vol] 16 mg/dL Normal 7-21 [facility] Comment on above: Order Comment: Speci men Type: BLOOD SPECIMEN Ordering Facility: [facility] Address: [address] [place] [address] Performed By: #### 3 016-3, 27962-6, 15383-8, 62747-1 #### [facility] CLIA [id number] [address] [place] [address] [place] Iron and Iron binding capaci ty panelon 11-22-2023 Iron [Mass/Vol] 82 ug/dL Normal 41-186 [facility] Comment on above: Order Comment: Speci men Type: BLOOD SPECIMEN Ordering Facility: [facility] Address: [address] [place] [address] Performed By: #### 3 016-3, 89464-9, 74347-7, 49031-1 #### [facility] CLIA [id number] [address] [place] [address] [place] Iron binding capacity [Mass/Vol] 326 ug/dL Normal 232-386 [facility] Comment on above: Order Comment: Speci men Type: BLOOD SPECIMEN Ordering Facility: [facility] Address: [address] [place] [address] Performed By: #### 3 016-3, 08908-2, 56851-8, 89137-5 #### [facility] CLIA [id number] [address] [place] [address] [place] Iron/TIBC [Molar ratio] 25.2 % Normal 15.0-57.0 [facility] Comment on above: Order Comment: Speci men Type: BLOOD SPECIMEN Ordering Facility: [facility] Address: [address] [place] [address] Performed By: #### 3 016-3, 62384-7, 70071-9, 68630-2 #### [facility] CLIA [id number] [address] [place] [address] [place] Lipid 1996 panelon 4 Cholesterol [Mass/Vol] 210 mg/dL High <200 [facility] Comment on above: Order Comment: Speci men Type: BLOOD SPECIMEN Ordering Facility: [facility] Address: [address] [place] [address] Result Comment: <200 mg/dL, Desirable 200-239 mg/dL, Borderline high >239 mg/dL, High Performed By: #### 3 016-3, 52310-3, 71502-5, 02752-4 #### [facility] CLIA [id number] [address] [place] [address] [place] Cholesterol in HDL [Mass/Vol] 85 mg/dL Normal >39 [facility] Comment on above: Order Comment: Speci men Type: BLOOD SPECIMEN Ordering Facility: [facility] Address: [address] [place] [address] Result Comment: 40-5 9 mg/dL, Acceptable >59 mg/dL, High: Negative risk factor for coronary heart disease <40 mg/dL, Low: Positive risk factor for coronary heart disease Performed By: #### 3 016-3, 92858-1, 07630-9, 22461-0 #### [facility] CLIA [id number] [address] [place] [address] [place] Cholesterol in LDL [Mass/Vol] 105 mg/dL High <100 [facility] Comment on above: Order Comment: Margie aguirre Type: BLOOD SPECIMEN Ordering Facility: [facility] Address: [address] [place] [address] Result Comment: <100 mg/dL, Optimal 100-129 mg/dL, Near optimal/above optimal 130-159 mg/dL, Borderline high 160-189 mg/dL, High >189 mg/dL, Very high Secondary prevention optimal LDL Cholesterol levels are recommended to be < 70 mg/dL Performed By: #### 3 016-3, 02623-2, 29049-5, 43550-5 #### [facility] CLIA [id number] [address] [place] [address] [place] Cholesterol in LDL/Cholesterol in HDL [Mass ratio] 1.24 {ratio} Normal <2.54 [facility] Comment on above: Order Comment: Margie aguirre Type: BLOOD SPECIMEN Ordering Facility: [facility] Address: [address] [place] [address] Result Comment: Refe rence: 1. National Cholesterol Education Program ATP III Guideline At-A-Glance Quick Desk Reference: National Heart, Lung, and Blood [place]. National Institutes of Health. 2001: NIH Publication No. 01-3305. 2. An International Atherosclerosis Society position paper: global recommendations for the management of dyslipidemia: executive summary, Atherosclerosis. 2014: 232(2):410-413. Performed By: #### 3 016-3, 66118-2, 83047-5, 99527-5 #### [facility] CLIA [id number] [address] [place] [address] [place] Cholesterol in VLDL [Mass/Vol] 20 mg/dL Normal <30 [facility] Comment on above: Order Comment: Speci men Type: BLOOD SPECIMEN Ordering Facility: [facility] Address: [address] [place] [address] Performed By: #### 3 016-3, 67835-1, 35616-7, 20491-0 #### [facility] CLIA [id number] [address] [place], [place] [id number] [place] Cholesterol non HDL [Mass/Vol] 125 mg/dL Normal <130 [facility] Comment on above: Order Comment: Speci men Type: BLOOD SPECIMEN Ordering Facility: [facility] Address: [address] [place] [address] Result Comment: <130 mg/dL, Optimal 130-159 mg/dL, Near optimal/above optimal 160-189 mg/dL, Borderline high 190-219 mg/dL, High >219 mg/dL, Very high Secondary prevention optimal non HDL Cholesterol levels are recommended to be <100 mg/dL Performed By: #### 3 016-3, 02746-4, 12631-6, 78482-0 #### [facility] CLIA [id number] [address] [place] [address] [place] Cholesterol.total/Sindi sterol in HDL [Mass ratio] 2.47 {ratio} Normal <5.10 [facility] Comment on above: Order Comment: Speci men Type: BLOOD SPECIMEN Ordering Facility: [facility] Address: [address] [place] [address] Performed By: #### 3 016-3, 12413-1, 45999-3, 18846-0 #### [facility] CLIA [id number] [address] [place], [place] [address] [place] FASTING TIME 15 hrs Normal [facility] Comment on above: Order Comment: Speci men Type: BLOOD SPECIMEN Ordering Facility: [facility] Address: [address] [place] [address] Performed By: #### 3 016-3, 44600-7, 72323-4, 29074-8 #### [facility] CLIA [id number] [address] [place] [address] [place] Triglyceride [Mass/Vol] 99 mg/dL Normal <150 [facility] Comment on above: Order Comment: Speci men Type: BLOOD SPECIMEN Ordering Facility: [facility] Address: [address] [place] [address] Result Comment: <150 mg/dL, Normal 150-199 mg/dL, Borderline high 200-499 mg/dL, High >499 mg/dL, Very high Performed By: #### 3 016-3, 30980-6, 74823-2, 76416-1 #### [facility] CLIA [id number] [address] [place] [address] [place] TSH SerPl-aCncon 11-22-2023 TSH Qn 3.810 m[IU]/L Normal 0.270-4.200 [facility] Comment on above: Order Comment: Speci men Type: BLOOD SPECIMEN Ordering Facility: [facility] Address: [address] [place] [address] Performed By: #### 3 016-3, 56896-1, 51861-3, 87806-1 #### [facility] CLIA [id number] [address] [place] [address] [place] Brain/Head without Contrasto n 05-20-2023 Brain/Head without Contrast [facility] Imaging Services [address] [place] [address] Brain/Head without Contrast MR#: [id number] Acct: [id number] Name: CALISTA CANNON Rep #: [id number] : 1950 F 73 From: Jonel Meier MD PCP: Dr. Humera Lamas MD Status: PRE ER Study: Brain/Head without Contrast Date of Exam: 08/11 Exam# [id number] Ordering Dr: Liane Woody MD [id number] INDICATION: injury EXAMINATION: CT BRAIN - CT Head or Brain W/O Contrast Injection TECHNIQUE: Multiple axial images were obtained of the head without intravenous contrast. A radiation dose optimization technique was used for this scan. IV Contrast dosage and agent: None. COMPARISON: __ FINDINGS: BRAIN PARENCHYMA: No intra- or extra-axial hemorrhage. No evidence of acute infarct. No intracranial mass or mass effect. There is preservation of the arechiga/white matter interface. Posterior fossa structures are unremarkable. CSF SPACES: Appropriate for age. No hydrocephalus. Basal cisterns are patent. CALVARIUM, SKULL BASE, PARANASAL SINUSES AND MASTOID AIR CELLS: Clear. No discrete lytic or blastic abnormalities. ORBITS: Both globes, extraocular muscles, optic nerves and retrobulbar fat appear unremarkable. Soft tissue laceration noted at the vertex. Superficial calcification presumably chronic noted on sagittal image [address]/Brain/Head without Contrast IMPRESSION: Soft tissue laceration superficially. No bony fracture or acute intracranial hemorrhage. Electronically Signed: Jonel Meier MD at 21:49 EST , CC: Dr. Liane Woody MD; Dr. Humera Lamas MD Weatherization Operations Manager: Signed Normal [facility] Emergency Department Summary on 05-20-2023 Emergency Department Summary [facility] Medical Records Department [address] [place] [address] Emergency Department Summary 05/20/23 MR#: [id number] Acct: [id number] Name: CALISTA CANNON Rep #: [id number] : 1950 73 From: Liane Woody MD PCP: Dr. Humera Lamas MD Status:DEP ER Location: ED HPI History of Present Illness Chief Complaint: Fall Informant: patient Onset/Context/Timing Onset: Today Narrative Narrative: Patient presents with a fall at home. She states she was stepping out of the shower when the mat slipped and she fell striking her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 Routine Hyperlipidemia, unspecified hyperlipidemia type Expected: 06/01/2024, Expires: 08/31/2024 [facility] Comment on above: Expected: 06/01/2024 , Expires: 08/31/2024 Start: 06-01-2024 End: 08-31-2024 Thyrotropin [Units/volume] in Serum or Plasma THYROID STIMULATING HORMONE Lab Routine Hypothyroidism, unspecified type Expected: 06/01/2024, Expires: 08/31/2024 [facility] Comment on above: Expected: 06/01/2024 , Expires: 08/31/2024 Start: 05-30-2024 Annual PCP Team [employer] yoseph Disease Visit Annual PCP Team Chronic Disease Visit [facility] Start: 05-30-2024 Covid-19 Vaccine (#1) Covid-19 Vacci ne (#1) [facility] Comment on above: Postponed from 09/26 (Declined at this time) Start: 05-30-2024 Covid-19 Vaccine () Covid-19 Vaccine () [facility] Comment on above: Postponed from 02/17 (Declined at this time) Start: 03-29-2024 DIABETES SCREEN DIABETES SCREEN [facility] Start: 03-27-2024 End: 03-27-2024 Patient encounter procedure 03/27/2024 10:10 AM EDT Appointment Mammogram [address] [place] [address] CHIN SCREENING W HEIDI Mammogram Comment on above: CHIN SCREENING W HEIDI Start: 02-18-2024 Covid-19 Vaccine ( season) Covid-19 Vaccine ( season) [facility] Start: 02-18-2024 Influenza vaccination C [facility] Start: 12-17-2023 Influenza vaccination Influenza Vacc ine (#1) [facility] Comment on above: Postponed from 02/17 (Declined at this time) Start: 11-29-2023 End: 02-28-2024 CBC W Auto Differential panel - Blood CBC + DIFF Lab Routine Iron deficiency anemia, unspecified iron deficiency anemia type Expected: 11/29/2023 (Approximate), Expires: 02/28/2024 [facility] Work Phone: Comment on above: Expected: 11/29/2023 (Approximate), Expires: 02/28/2024 Start: 11-29-2023 End: 02-28-2024 Comprehensive metabolic 2000 panel - Serum or Plasma COMP METABOLIC PANEL Lab Routine Hyperlipidemia, unspecified hyperlipidemia type Expected: 11/29/2023 (Approximate), Expires: 02/28/2024 [facility] Work Phone: Comment on above: Expected: 11/29/2023 (Approximate), Expires: 02/28/2024 Start: 11-29-2023 End: 02-28-2024 Iron and Iron binding capacity panel - Serum or Plasma IRON + TIBC Lab Routine Celiac disease Iron deficiency anemia, unspecified iron deficiency anemia type Expected: 11/29/2023 (Approximate), Expires: 02/28/2024 [facility] Work Phone: Comment on above: Expected: 11/29/2023 (Approximate), Expires: 02/28/2024 Start: 11-29-2023 End: 02-28-2024 Lipid 1996 panel - Serum or Plasma LIPID PANEL BASIC Lab Routine Hyperlipidemia, unspecified hyperlipidemia type Expected: 11/29/2023 (Approximate), Expires: 02/28/2024 [facility] Work Phone: Comment on above: Expected: 11/29/2023 (Approximate), Expires: 02/28/2024 Start: 11-29-2023 End: 02-28-2024 Thyrotropin [Units/volume] in Serum or Plasma TSH BLD Lab Routine Hypothyroidism, unspecified type Expected: 11/29/2023 (Approximate), Expires: 02/28/2024 [facility] Work Phone: Comment on above: Expected: 11/29/2023 (Approximate), Expires: 02/28/2024 Start: 11-25-2023 ANNUAL PCP TEAM PLATING TECHNICIAN YOSEPH DISEASE VISIT ANNUAL PCP TEAM CHRONIC DISEASE VISIT [facility] Start: 11-25-2023 Pneumococcal Vaccine : 65+ (2 - PCV) Pneumococcal Vaccine: 65+ (2 - PCV) [facility] Comment on above: Postponed from 07/27 (Declined at this time) Start: 11-25-2023 PNEUMOCOCCAL: 65+ (2 - PCV) PNEUMOCOCCAL: 65+ (2 - PCV) [facility] Comment on above: Postponed from 07/27 (Declined at this time) Start: 06-16-2023 ANNUAL PCP TEAM PLATING TECHNICIAN YOSEPH DISEASE VISIT ANNUAL PCP TEAM CHRONIC DISEASE VISIT [facility] Start: 05-24-2023 ANNUAL PCP TEAM PLATING TECHNICIAN YOSEPH DISEASE VISIT ANNUAL PCP TEAM CHRONIC DISEASE VISIT [facility] Start: 05-24-2023 COVID-19 VACCINE (#1) COVID-19 VACCI NE (#1) [facility] Comment on above: Postponed from 09/26 (Declined at this time) Start: 05-20-2023 [facility] Start: 02-17-2023 Influenza vaccination C [facility] Start: 01-03-2023 FECAL OCCULT BLOOD FECAL OCCULT BLOO D [facility] Start: 01-03-2023 Screening for malign ant neoplasm of colon Fecal Occult Blood [facility] Start: 12-16-2022 Influenza vaccination INFLUENZA (#1) [facility] Comment on above: Postponed from 02/17 (Declined at this time) Start: 11-24-2022 Mammography [facility] Start: 11-24-2022 Screening for malign ant neoplasm of breast Mammogram Screening [facility] Start: 11-22-2022 End: 01-22-2023 25-hydroxyvitamin D3 [Mass/volume] in Serum or Plasma VITAMIN D 25 HYDROXY Lab Routine Vitamin D deficiency Expected: 11/22/2022 (Approximate), Expires: 01/22/2023 [facility] Work Phone: Comment on above: Expected: 11/22/2022 (Approximate), Expires: 01/22/2023 Start: 11-22-2022 End: 01-22-2023 CBC panel - Blood by Automated count CBC Lab Routine Celiac disease Hypothyroidism, unspecified type Anemia, unspecified type Expected: 11/22/2022 (Approximate), Expires: 01/22/2023 [facility] Work Phone: Comment on above: Expected: 11/22/2022 (Approximate), Expires: 01/22/2023 Start: 11-22-2022 End: 01-22-2023 Comprehensive metabolic 2000 panel - Serum or Plasma COMP METABOLIC PANEL Lab Routine Celiac disease Hyperlipidemia, unspecified hyperlipidemia type Expected: 11/22/2022 (Approximate), Expires: 01/22/2023 [facility] Work Phone: Comment on above: Expected: 11/22/2022 (Approximate), Expires: 01/22/2023 Start: 11-22-2022 End: 01-22-2023 Iron and Iron binding capacity panel - Serum or Plasma IRON + TIBC Lab Routine Celiac disease Anemia, unspecified type Expected: 11/22/2022 (Approximate), Expires: 01/22/2023 [facility] Work Phone: Comment on above: Expected: 11/22/2022 (Approximate), Expires: 01/22/2023 Start: 11-22-2022 End: 01-22-2023 Lipid 1996 panel - Serum or Plasma LIPID PANEL BASIC Lab Routine Hyperlipidemia, unspecified hyperlipidemia type Expected: 11/22/2022 (Approximate), Expires: 01/22/2023 [facility] Work Phone: Comment on above: Expected: 11/22/2022 (Approximate), Expires: 01/22/2023 Start: 11-22-2022 End: 01-22-2023 Thyrotropin [Units/volume] in Serum or Plasma TSH BLD Lab Routine Hypothyroidism, unspecified type Expected: 11/22/2022 (Approximate), Expires: 01/22/2023 [facility] Work Phone: Comment on above: Expected: 11/22/2022 (Approximate), Expires: 01/22/2023 Start: 11-20-2022 ANNUAL PCP TEAM PLATING TECHNICIAN YOSEPH DISEASE VISIT ANNUAL PCP TEAM CHRONIC DISEASE VISIT [facility] Start: 08-09-2022 ANNUAL PCP TEAM PLATING TECHNICIAN YOSEPH DISEASE VISIT ANNUAL PCP TEAM CHRONIC DISEASE VISIT [facility] Start: 06-19-2022 ADVANCE DIRECTIVE DISCUSSION ADVANCE DIRECTIVE DISCUSSION [facility] Start: 06-19-2022 DEPRESSION ASSESSMENT DEPRESSION ASS ESSMENT [facility] Start: 05-24-2022 End: 07-24-2022 25-hydroxyvitamin D3 [Mass/volume] in Serum or Plasma [facility] Work Phone: Comment on above: Expected: 05/24/2022 , Expires: 07/24/2022 Start: 05-24-2022 End: 07-24-2022 CBC W Auto Differential panel - Blood [facility] Work Phone: Comment on above: Expected: 05/24/2022 , Expires: 07/24/2022 Start: 05-24-2022 End: 07-24-2022 Iron and Iron binding capacity panel - Serum or Plasma [facility] Work Phone: Comment on above: Expected: 05/24/2022 , Expires: 07/24/2022 Start: 05-24-2022 End: 07-24-2022 Thyrotropin [Units/volume] in Serum or Plasma [facility] Work Phone: Comment on above: Expected: 05/24/2022 , Expires: 07/24/2022 Start: 03-07-2022 End: 05-07-2022 CBC panel - Blood by Automated count CBC Lab Routine Iron deficiency anemia, unspecified iron deficiency anemia type Expected: 03/07/2022, Expires: 05/07/2022 [facility] Work Phone: Comment on above: Expected: 03/07/2022 , Expires: 05/07/2022 Start: 03-07-2022 End: 05-07-2022 Iron and Iron binding capacity panel - Serum or Plasma IRON + TIBC Lab Routine Iron deficiency anemia, unspecified iron deficiency anemia type Expected: 03/07/2022, Expires: 05/07/2022 [facility] Work Phone: Comment on above: Expected: 03/07/2022 , Expires: 05/07/2022 Start: 02-17-2022 Influenza vaccination C [facility] Start: 02-03-2022 Adult depression screening assessment DEPRESSION SCREENING [facility] Start: 12-24-2021 End: 02-23-2022 CBC panel - Blood by Automated count CBC Lab Routine Iron deficiency anemia, unspecified iron deficiency anemia type Expected: 12/24/2021 (Approximate), Expires: 02/23/2022 [facility] Work Phone: Comment on above: Expected: 12/24/2021 (Approximate), Expires: 02/23/2022 Start: 12-24-2021 End: 02-23-2022 IRON + TIBC IRON + TIBC Lab Routine Iron deficiency anemia, unspecified iron deficiency anemia type Expected: 12/24/2021 (Approximate), Expires: 02/23/2022 [facility] Work Phone: Comment on above: Expected: 12/24/2021 (Approximate), Expires: 02/23/2022 Start: 12-16-2021 Influenza vaccination INFLUENZA (#1) [facility] Comment on above: Postponed from 02/17 (Declined at this time) Start: 11-20-2021 End: 01-20-2022 CBC panel - Blood by Automated count [facility] Work Phone: Comment on above: Expected: 11/20/2021 , Expires: 01/20/2022 Start: 11-20-2021 End: 01-20-2022 Folate [Mass/volume] in Serum or Plasma [facility] Work Phone: Comment on above: Expected: 11/20/2021 , Expires: 01/20/2022 Start: 11-20-2021 End: 01-20-2022 IRON + TIBC [facility] Work Phone: Comment on above: Expected: 11/20/2021 , Expires: 01/20/2022 Start: 11-20-2021 End: 01-20-2022 VITAMIN B12 BLOOD [facility] Work Phone: Comment on above: Expected: 11/20/2021 , Expires: 01/20/2022 Start: 11-20-2021 End: 01-20-2022 VITAMIN D 25 HYDROXY [facility] Work Phone: Comment on above: Expected: 11/20/2021 , Expires: 01/20/2022 Start: 06-19-2021 ADVANCE DIRECTIVE DISCUSSION ADVANCE DIRECTIVE DISCUSSION [facility] Start: 06-19-2021 DEPRESSION ASSESSMENT DEPRESSION ASS ESSMENT [facility] Start: 01-04-2019 Mammography MAMMOGRAM [facility] Start: 07-27-2018 Pneumococcal Vaccine : 50+ (2 of 2 - PCV) Pneumococcal Vaccine: 50+ (2 of 2 - PCV) [facility] Start: 07-27-2018 Pneumococcal Vaccine : 65+ (2 of 2 - PCV) Pneumococcal Vaccine: 65+ (2 of 2 - PCV) [facility] Start: 07-27-2018 PNEUMOCOCCAL: 65+ (2 - PCV) PNEUMOCOCCAL: 65+ (2 - PCV) [facility] Start: 2011 RSV Vaccine (1 - 1-d ose 60+ series) RSV Vaccine (1 - 1-dose 60+ series) [facility] Start: 04-03-2010 Urine microalbumin profile DTAP,TDAP,TD (2 - Tdap) [facility] Start: 2001 SHINGRIX VACCINE (1 of 2) SHINGRIX VACCINE (1 of 2) [facility] Start: 1996 COLOGUARD (FIT-DNA) COLOGUARD (FIT-D NA) [facility] Start: [address] COLONOGRAPHY [facility] Start: 1996 FECAL OCCULT BLOOD FECAL OCCULT BLOO D [facility] Start: 1996 Screening for malign ant neoplasm of colon [facility] Start: 1996 SIGMOIDOSCOPY SIGMOIDOSCOPY [facility] Start: 1956 COVID-19 VACCINE (#1) COVID-19 VACCI NE (#1) [facility] Start: 1956 COVID-19 VACCINE (1) COVID-19 VACCIN E (1) [facility] Start: 1951 COVID-19 VACCINE (#1) COVID-19 VACCI NE (#1) [facility] End: 07-28-2025 BD DXA TRABECULAR BONE SCORE (TBS) BD DXA TRABECULAR BONE SCORE (TBS) Radiology Routine Asymptomatic postmenopausal status 1 Occurrences starting 06/28/2024 until 07/28/2025 [facility] Comment on above: 1 Occurrences starti ng 06/28/2024 until 07/28/2025 End: 12-30-2024 DBT Breast - bilateral screening CHIN SCREENING W HEIDI Radiology Routine Encounter for screening mammogram for malignant neoplasm of breast 1 Occurrences starting 12/01/2023 until 12/30/2024 [facility] Comment on above: 1 Occurrences starti ng 12/01/2023 until 12/30/2024 DBT Breast - bilater al screening CHIN SCREENING W HEIDI Radiology Routine Encounter for screening mammogram for malignant neoplasm of breast 03/27/2024 10:37 AM EDT [facility] Work Phone: End: 07-28-2025 DXA Skeletal system.axial Views for bone density DXA-AXIAL SKELETON Radiology Routine Asymptomatic postmenopausal status 1 Occurrences starting 06/28/2024 until 07/28/2025 [facility] Work Phone: Comment on above: 1 Occurrences starti ng 06/28/2024 until 07/28/2025 ECG COMPLETE ECG COMPLETE ECG 12/01/2023 11:15 AM EDT [facility] Hemoglobin.gastroint est inal.lower [Presence] in Stool by Immunoassay FECAL OCCULT BLOOD TEST Lab Routine Iron deficiency anemia, unspecified iron deficiency anemia type Ordered: 11/25/2021 [facility] Work Phone: Comment on above: Ordered: 11/25/2021 End: 02-10-2024 CHIN SCREENING CHIN SCREENING Radiology Routine Encounter for screening mammogram for breast cancer 1 Occurrences starting 01/11/2023 until 02/10/2024 [facility] Work Phone: Comment on above: 1 Occurrences starti ng 01/11/2023 until 02/10/2024 Patient Education ED Hip Contusi on ED Laceration Scalp Stitches or Agness [facility] Work Phone: Patient referral [facility] Work Phone: Screening mammograph y bi 2-view breast inc cad CHIN SCREENING Radiology Routine Encounter for screening mammogram for breast cancer 11/24/2021 2:35 PM EDT [facility] End: 07-24-2025 XR Lumbar spine 3 Views XR LUMBAR GENERAL 3V AP/LAT/L5-S1 Radiology Routine Acute midline low back pain without sciatica 1 Occurrences starting 06/24/2024 until 07/24/2025 [facility] Comment on above: 1 Occurrences starti ng 06/24/2024 until 07/24/2025 XR Lumbar spine 3 Views XR LUMBA R GENERAL 3V AP/LAT/L5-S1 Radiology Routine Acute midline low back pain without sciatica 06/24/2024 11:51 AM EST [facility] Immunizations Immunization Date Immunization Notes Care Provider Fa tyrel 05-20-2023 tetanus toxoid, redu aureliano diphtheria toxoid, and acellular pertussis vaccine, adsorbed [facility] 04-18-2020 influenza, high dose seasonal, preservative-free Frannie Hendricks MA [facility] 04-18-2020 influenza virus vacc ine, unspecified formulation Humera Lamas MD Work Phone: [facility] 04-02-2018 influenza, high dose seasonal, preservative-free Frannie Hendricks MA [facility] 07-27-2017 pneumococcal polysaccharide vaccine, 23 valent Frannie Hendricks MA [facility] 03-23-2014 influenza, seasonal, injectable Frannie Hendricks MA [facility] Work Phone: 03-20-2013 influenza virus vacc ine, unspecified formulation Frannie Hendricks MA [facility] Work Phone: 03-24-2012 influenza virus vacc ine, unspecified formulation Frannie Hendricks MA [facility] 03-22-2011 influenza virus vacc ine, unspecified formulation Frannie Hendricks MA [facility] 04-19-2005 influenza virus vacc ine, whole virus Frannie Hendricks MA [facility] Work Phone: 03-19-2004 influenza virus vacc ine, whole virus Frannie Hendricks MA [facility] Work Phone: 04-03-2000 diphtheria and tetan us toxoids, adsorbed for pediatric use Frannie Hendricks MA [facility] Work Phone: Payers Date Payer Category Payer Medicare [id number] 2023 Medicare [id number] 2023 Self-pay 2020 Unknown [id number] 2018 Private Health Insurance [facility] CHOICE PLUS [id number] 2018-Present [phone] [address] [place] [address] O [id number] 2018 Private Health Insurance [id number] 2018 Private Health Insurance [id number] 2016 Medicare MEDICARE MEDICAR E A AND B [id number] 2016-Present [phone] [address] [address] [place] [address] Medicare [id number] 2016 Medicare [id number] 2016 Medicare [id number] Unknown ANTHEM [id number] Unknown [employer] [id number] Unknown [id number] Social History Date Type Detail Facility Start: 05-02-2013 End: 05-24-2022 Tobacco smoking status NHIS Never smoked tobacco [facility] Start: 08-09-2021 End: 06-24-2024 Alcohol intake Current non-drinker of alcohol (finding) [facility] Start: 1950 Sex Assigned At Not on file C [facility] Start: 07-01-2020 End: 11-24-2021 Exposure to SARS-CoV-2 (event) Not sure [facility] Start: 05-02-2013 End: 05-24-2022 Tobacco use and exposure Smokeless tobacco non-user [facility] Start: 11-24-2022 End: 12-01-2023 History of Social function [facility] Work Phone: Start: 11-24-2022 End: 12-01-2023 Tobacco use panel [facility] Work Phone: Adult Depression Screening Assessment 0 [facility] Work Phone: Start: 05-20-2023 Tobacco smoking stat us NHIS Unknown if ever smoked [facility] Start: 1950 Sex Assigned At Female W [facility] Functional Status Date Assessment Result Facility 12-30-2014 Are you deaf, or do you have serious difficulty hearing No 12/30/2014 3:23 PM EDT Radhika Leal Ma No [facility] 12-30-2014 Are you blind, or do you have serious difficulty seeing, even when wearing glasses No 12/30/2014 3:23 PM EDT Mel Radhika Carranza [facility] 12-30-2014 Do you have serious difficulty walking or climbing stairs No 12/30/2014 3:23 PM EDT Radhika Leal Ma [facility] 12-30-2014 Do you have difficul ty dressing or bathing No 12/30/2014 3:23 PM EDT Radhika Leal Ma [facility] 12-30-2014 Because of a physica l, mental, or emotional condition, do you have difficulty doing errands alone such as visiting a physician's office or shopping No 12/30/2014 3:23 PM EDT Mel Radhika Carranza [facility] Mental Status Date Assessment Result Facility 12-30-2014 Because of a physica l, mental, or emotional condition, do you have serious difficulty concentrating, remembering, or making decisions No 12/30/2014 3:23 PM EDT Mel Radhika Carranza [facility] Clinical Notes 07-08-2013 to 08-20-2024 Telephone Encounter - Maria Del Rosario Erickson LPN - 08/20/2024 8:34 AM ESTTelephone Encounter - Maria Del Rosario Erickson LPN - 08/20/2024 8:34 AM Grant Mancuso RT(R) - 08/12/2024 1:05 PM EST Note Date & Type Note Facility 08-20-2024 Telephone encounter Note Patient notified. Verbalized understanding. States will start with the Vitamin D with calcium. States she is unsure of side effects with taking fosamax, states will discuss further at next appointment. [facility] 08-20-2024 Miscellaneous Notes Patient notified. Verbalized understanding. States will start with the Vitamin D with calcium. States she is unsure of side effects with taking fosamax, states will discuss further at next appointment. Can you please call the patient and let her know that I reviewed her bone density test results. Bone density showed osteoporosis. This puts her at increased risk of a fracture in the future. I would like to ensure that she is taking adequate vitamin D and calcium. She may consider taking osteoporosis medication such as Fosamax which is a once weekly tablet. This is used to prevent any worsening bone loss. Please let me know what she prefers. Pepper Sousa APRN.CNP documented in this encounter [facility] 08-19-2024 Telephone encounter Note Can you please call the patient and let her know that I reviewed her bone density test results. Bone density showed osteoporosis. This puts her at increased risk of a fracture in the future. I would like to ensure that she is taking adequate vitamin D and calcium. She may consider taking osteoporosis medication such as Fosamax which is a once weekly tablet. This is used to prevent any worsening bone loss. Please let me know what she prefers. Pepper Sousa APRN.CNP [facility] 08-12-2024 History of Present illness Narrative Radiology Service Progress Note PATIENT NAME: Calista Cannon DATE OF SERVICE: August 12, 2024 TIME: 11:08 AM PATIENT IDENTITY VERIFICATION COMPLETED USING TWO (2) IDENTIFIERS: Name and Date of confirmed by patient verbally. FALL SCREENING: Has the patient had 2 falls in the last year or 1 fall with injury or currently using an Ambulatory Assistive Device (Walker, Cane, Wheelchair, Crutches, etc.)? No PATIENT GENDER DATA: Assigned female at . status: : No status: NO. PATIENT RELEVANT IMPLANT DATA REVIEWED: Not Applicable PATIENT PRESENTS WITH AN IMPLANTABLE OR ATTACHED NUCLEAR MONITORING TECHNICIAN: No RADIOLOGY DEPARTMENT: Bone Density PERIPHERAL IV DATA: Not applicable SIGNED BY: RT Joao(R) August 12, 2024 11:08 AM documented in this encounter [facility] 08-12-2024 Note HNO ID: [id number] Author: GRANT DE LA CRUZ RT(R) Service: ? Author Type: Technologist Type: Progress Notes Filed: 08/12/2024 11:19 Note Text: Radiology Service Progress Note PATIENT NAME: Calista Cannon DATE OF SERVICE: August 12, 2024 TIME: 11:08 AM PATIENT IDENTITY VERIFICATION COMPLETED USING TWO (2) IDENTIFIERS: Name and Date of confirmed by patient verbally. FALL SCREENING: Has the patient had 2 falls in the last year or 1 fall with injury or currently using an Ambulatory Assistive Device (Walker, Cane, Wheelchair, Crutches, etc.)? No PATIENT GENDER DATA: Assigned female at . status: : No status: NO. PATIENT RELEVANT IMPLANT DATA REVIEWED: Not Applicable PATIENT PRESENTS WITH AN IMPLANTABLE OR ATTACHED NUCLEAR MONITORING TECHNICIAN: No RADIOLOGY DEPARTMENT: Bone Density PERIPHERAL IV DATA: Not applicable SIGNED BY: RT Joao(R) August 12, 2024 11:08 AM [facility] 07-01-2024 Telephone encounter Note Notified via [employer] that test has been ordered and she can call in to schedule. Elin James MA [facility] 07-01-2024 Miscellaneous Notes Notified via [employer] that test has been ordered and she can call in to schedule. Elin James MA Please call pt to set up BMD test. Elin James MA Order for bone density has been placed. She may have this completed at her convenience. Pepper Sousa APRN.CNP Patient returned call and went over results, notes from Pepper Sousa CLASSROOM PARAPROFESSIONAL with understanding. Patient is willing to do the bone density test. TC to pt. LM to call office, ask for triage nurse to get results. Amirah Gutiérrez LPN Can you please call the patient and let her know that I reviewed her x-ray results. X-ray of lumbar spine did show a compression fracture in L1 and arthritis. It is important that she gets adequate calcium and vitamin D in the diet. I would recommend getting a repeat bone density to evaluate for osteoporosis. This fracture can take some time to heal. If pain does not improve then I would recommend a consult with spine medicine. Please let me know what she prefers regarding bone density testing. Thank you Pepper Sousa APRN.CNP documented in this encounter [facility] 06-28-2024 Telephone encounter Note Please call pt to set up BMD test. Elin James MA [facility] 06-28-2024 Telephone encounter Note Order for bone density has been placed. She may have this completed at her convenience. Pepper Sousa APRN.CNP [facility] 06-28-2024 Instructions Pepper Sousa APRN.CNP - 06/28/2024 3:01 PM EST BONE MINERAL DENSITY PATIENT INSTRUCTIONS ======== Bone mineral density testing measures the amount of calcium in certain parts of your bones. This information determines how strong your bones are. The test is used to detect osteoporosis, a disease in which the bone's mineral content and density are low, increasing a person's risk of fractures. The lumbar spine (lower back) and the hip are the skeletal sites usually examined. For the test, remember that: 1. You cannot take this test if you are . 2. Eat a normal diet on the day of the test. 3. Take your medications as you normally would. 4. DO NOT take calcium supplements (such as Tums) for 24 hours before the test. 5. On the day of the test, leave valuables (jewelry or credit cards) at home. 6. The test should be performed prior to oral, rectal or IV contrast studies, or at least 7 days after any of these studies. For the test, you may be asked to wear a hospital gown. You will lie on your back, on a padded table, in a comfortable position. Generally, you can resume your usual activities immediately. documented in this encounter [facility] 06-28-2024 Telephone encounter Note Patient returned call and went over results, notes from Pepper Sousa CLASSROOM PARAPROFESSIONAL with understanding. Patient is willing to do the bone density test. [facility] 06-27-2024 Telephone encounter Note TC to pt. LM to call office, ask for triage nurse to get results. Amirah Gutiérrez LPN [facility] 06-27-2024 Telephone encounter Note Can you please call the patient and let her know that I reviewed her x-ray results. X-ray of lumbar spine did show a compression fracture in L1 and arthritis. It is important that she gets adequate calcium and vitamin D in the diet. I would recommend getting a repeat bone density to evaluate for osteoporosis. This fracture can take some time to heal. If pain does not improve then I would recommend a consult with spine medicine. Please let me know what she prefers regarding bone density testing. Thank you Pepper Sousa APRN.SENIOR PRINCIPAL ARCHITECT [facility] 06-24-2024 History of Present illness Narrative Radiology Service Progress Note PATIENT NAME: Calista Cannon DATE OF SERVICE: June 24, 2024 TIME: 11:36 AM PATIENT IDENTITY VERIFICATION COMPLETED USING TWO (2) IDENTIFIERS: Name and Date of confirmed by patient verbally. FALL SCREENING: Has the patient had 2 falls in the last year or 1 fall with injury or currently using an Ambulatory Assistive Device (Walker, Cane, Wheelchair, Crutches, etc.)? No PATIENT GENDER DATA: Female. status: : No status: NO. PATIENT RELEVANT IMPLANT DATA REVIEWED: Yes PATIENT PRESENTS WITH AN IMPLANTABLE OR ATTACHED NUCLEAR MONITORING TECHNICIAN: No RADIOLOGY DEPARTMENT: General X-ray: Exam(s) Completed: Spine X-Ray(s): Lumbar AP / LAT / L5-S1 PERIPHERAL IV DATA: Not applicable SIGNED BY: RT Brittany(Nazanin) June 24, 2024 11:36 AM documented in this encounter [facility] 06-24-2024 Note HNO ID: [id number] Author: ARTUR MURILLO RT(Nazanin) Service: ? Author Type: Song Lyricist Type: Progress Notes Filed: 06/24/2024 11:50 Note Text: Radiology Service Progress Note PATIENT NAME: Calista Cannon DATE OF SERVICE: June 24, 2024 TIME: 11:36 AM PATIENT IDENTITY VERIFICATION COMPLETED USING TWO (2) IDENTIFIERS: Name and Date of confirmed by patient verbally. FALL SCREENING: Has the patient had 2 falls in the last year or 1 fall with injury or currently using an Ambulatory Assistive Device (Walker, Cane, Wheelchair, Crutches, etc.)? No PATIENT GENDER DATA: Female. status: : No status: NO. PATIENT RELEVANT IMPLANT DATA REVIEWED: Yes PATIENT PRESENTS WITH AN IMPLANTABLE OR ATTACHED NUCLEAR MONITORING TECHNICIAN: No RADIOLOGY DEPARTMENT: General X-ray: Exam(s) Completed: Spine X-Ray(s): Lumbar AP / LAT / L5-S1 PERIPHERAL IV DATA: Not applicable SIGNED BY: RT Brittany(R) June 24, 2024 11:36 AM [facility] 06-24-2024 Instructions Pepper Sousa APRN.VIVIAN - 06/24/2024 11:18 AM EST Get xray completed Get repeat fasting labs completed in 6 months prior to next visit Continue to take all medication as prescribed If knee pain does not improve follow up with Orthopedics. Due for Colonoscopy this year. Follow up in 6 months or sooner as needed. documented in this encounter [facility] 06-24-2024 History of Present illness Narrative This is a 74 year old female who presents today with: Patient presents with: 6 Month Exam HISTORY OF PRESENT ILLNESS: Calista Cannon is a 74 year old female. Patient presents with: 6 Month Exam 6 month follow up On going back pain: Seems to come and go. Started after trying to fiber picker when he was ill. Pain is an ache. Using Tylenol and Meloxicam. Has applied heat to the area. No numbness or tingling to the area. Chronic diarrhea. Takes Imodium prn, Lomotil 2.5-0.025 mg 1 tab po QID prn and Cloestipol 1 gram, 3 tablets BID, Levbid 0.375 mg 1 tab po bid. Hx of celiac disease, eats gluten free. Used to follow with gastroenterology. Medication helps control how many episodes she has per day. Thyroid -taking Synthroid 88 mcg once daily. Denies palpitations, difficulty swallowing, or cold/heat intolerances. Lipids - Denies any exercise due to chronic knee pain issues. Tries to watch diet. On Colestipol 1 gram 3 tabs po bid. Anemia - Takes Iron every other day. Monitoring through routine labs. Pain - Chronic knee pain. Taking Mobic 15 mg once daily prn, Tylenol prn and Flexeril prn. Has previously seen with [facility]. Has been told in the past she needs b/l knee replacement due to stage IV arthritis. Hx of cortisone injections and Gel-One injections. Colonoscopy: Last completed in 2014, will be due in 2024. Would like to wait. Mammogram: Last completed in 2023. Pap: Last completed in 2015. Denied wanting at this time. PAST MEDICAL HISTORY: PAST MEDICAL HISTORY Diagnosis Date Acute gastritis without mention of hemorrhage Collagenous colitis 04/21/2010 Diarrhea Esophageal reflux Esophagitis, unspecified Fibrocystic breast disease 03/27/2014 Hyperlipidemia 06/21/2012 Hypothyroidism 06/06/2011 PAST SURGICAL HISTORY Procedure Laterality Date APPENDECTOMY remote open COLONOSCOPY FLX DX W/COLLJ SPEC WHEN PFRMD 11/13/92 Colonoscopy COLONOSCOPY FLX DX W/COLLJ SPEC WHEN PFRMD 01/21/2015 Colonoscopy COLONOSCOPY W/BIOPSY SINGLE/MULTIPLE 05/18/07 EGD TRANSORAL BIOPSY SINGLE/MULTIPLE 05/18/07 ESOPHAGOGASTRODUODENOSCOPY TRANSORAL DIAGNOSTIC 01/21/2015 EGD PAST SURGICAL HISTORY OF 03/2010 cervical fusion C4-C5 PAST SURGICAL HISTORY OF 07/03/2013 right thumb [facility] arthroplasty and right middle trigger release ALLERGIES Gluten and Sulfa (Sulfonamide Antibiotics) MEDICATIONS Current Outpatient Medications Medication Sig levothyroxine (SYNTHROID) 88 mcg tablet Take 1 tablet by mouth once daily. Take on empty stomach. cyclobenzaprine (FLEXERIL) 5 mg tablet Take 1 tablet by mouth daily at bedtime. colestipol (COLESTID) 1 gram tablet Take 3 tablets by mouth two times a day. diphenoxylate-atropine (LOMOTIL) 2.5-0.025 mg per tablet Take 1 tablet by mouth four times a day as needed for diarrhea for up to 360 days. loperamide (IMODIUM) 2 mg cap(s) TAKE 1 CAPSULE BY MOUTH WITH EACH MEAL DAILY ferrous sulfate 325 mg (65 mg iron) tablet Take 1 tablet by mouth daily with breakfast. hyoscyamine SR (LEVBID) 0.375 mg 12 hr tablet Take 1 tablet by mouth twice daily. meloxicam (MOBIC) 15 mg tablet Take 1 tablet by mouth once daily. With food. MULTI-VITAMIN TAB Take one(1) tablet daily. No current facility-administered medications for this visit. FAMILY HISTORY Problem Relation Age of Onset Hypertension Father Diabetes Father Cancer Father LUNG Diabetes Mother Hypertension Mother Thyroid Mother Thyroid Brother Hypertension Brother Cancer Brother TESTICULAR CA Social History Tobacco Use Smoking status: Never Smokeless tobacco: Never Substance Use Topics Alcohol use: No Drug use: No REVIEW OF SYSTEMS GENERAL: No weight loss, malaise or fevers/chills HEENT: Negative for frequent or significant headaches, No changes in hearing or vision. NECK: Negative for lumps, goiter, pain and significant neck swelling RESPIRATORY: Negative for cough, hemoptysis, wheezing, dyspnea or shortness of breath CARDIOVASCULAR: Negative for chest pain, leg swelling, orthopnea, or palpitations GI: No nausea, vomiting, or diarrhea/constipation. No hematochezia/melena. No heartburn or reflux symptoms. : No history of dysuria, frequency or incontinence MUSCULOSKELETAL: + Back Pain . SKIN: Negative for lesions, rash, and itching ENDOCRINE: Negative for cold or heat intolerance, polyuria, polydipsia and goiter NEURO: No history of headaches, syncope, paralysis, seizures or tremors MOOD: Negative for depression, anxiety, or suicidal ideation. EXAM: BP 106/66 Pulse 78 Resp 16 Wt 62.1 kg (137 lb) LMP 10/09/2006 SpO2 98% BMI 21.78 kg/m PHYSICAL EXAM: General Appearance: Well appearing, alert, in no acute distress, well-hydrated, well nourished. Skin: Skin color, texture, turgor normal, no suspicious rashes or lesions. Head: Normocephalic, no masses, lesions, tenderness or abnormalities. Eyes: Anicteric sclera. Extraocular movements are intact. Lungs: Lungs clear to auscultation. No wheezing, rhonchi, rales. Heart: RRR without murmur, gallop, or rubs. No ectopy. Extremities: No deformities, edema, skin discoloration, clubbing or cyanosis. Good capillary refill. Musculoskeletal: Reduced ROM of spine, lumbar spine tender with palpation, no swelling noted. Peripheral Pulses: Normal, Capillary refill <2secs, strong peripheral pulses, Pulses palpable. Neurologic: Using cane. Sensation grossly intact. Latest Ref Rng 06/20/2024 WBC 3.70 - 11.00 k/uL 4.05 RBC 3.90 - 5.20 m/uL 4.26 Hemoglobin 11.5 - 15.5 g/dL 13.1 Hematocrit 36.0 - 46.0 % 40.7 MCV 80.0 - 100.0 fL 95.5 MCH 26.0 - 34.0 pg 30.8 MCHC 30.5 - 36.0 g/dL 32.2 RDW-CV 11.5 - 15.0 % 13.2 Platelet Count 150 - 400 k/uL 326 MPV 9.0 - 12.7 fL 10.3 Neut% % 64.0 Abs Neut (ANC) 1.45 - 7.50 k/uL 2.59 Lymph% % 23.7 Abs Lymph 1.00 - 4.00 k/uL 0.96 (L) Weber% % 9.6 Abs Weber <0.87 k/uL 0.39 Eosin% % 1.5 Abs Eosin <0.46 k/uL 0.06 Baso% % 1.0 Abs Baso <0.11 k/uL 0.04 Immature Gran % % 0.2 IMMATURE GRANS (ABS) <0.10 k/uL <0.03 NRBC /100 WBC 0.0 Absolute nRBC <0.01 k/uL <0.01 DTYPE Auto Protein, Total 6.3 - 8.0 g/dL 6.7 Albumin 3.9 - 4.9 g/dL 3.8 (L) Calcium 8.5 - 10.2 mg/dL 8.9 Bilirubin, Total 0.2 - 1.3 mg/dL 0.3 Alkaline Phosphatase 34 - 123 U/L 59 AST 13 - 35 U/L 21 ALT 7 - 38 U/L 17 Glucose 74 - 99 mg/dL 77 BUN 7 - 21 mg/dL 15 Creatinine 0.58 - 0.96 mg/dL 0.57 (L) Sodium 136 - 144 mmol/L 142 Potassium 3.7 - 5.1 mmol/L 3.8 Chloride 98 - 107 mmol/L 107 CO2 22 - 30 mmol/L 23 Anion Gap 8 - 15 mmol/L 12 eGFR >=60 mL/min/1.73m 96 Cholesterol, Total <200 mg/dL 231 (H) Triglyceride <150 mg/dL 76 HDL Cholesterol >39 mg/dL 82 Non HDL Cholesterol <130 mg/dL 149 (H) Fasting Time hrs 12 VLDL Cholesterol <30 mg/dL 15 TC:HDL Ratio <5.10 2.82 LDL Cholesterol <100 mg/dL 134 (H) LDL:HDL Ratio <2.54 1.63 Iron 41 - 186 ug/dL 71 TIBC 232 - 386 ug/dL 340 Transferrin Saturation 15.0 - 57.0 % 20.9 TSH 0.270 - 4.200 mIU/L 3.740 Vitamin D 25 Hydroxy 31.0 - 80.0 ng/mL 71.5 Legend: (L) Low (H) High ASSESSMENT/PLAN: 1. Acute midline low back pain without sciatica - ICD9: 724.2, ICD10: M54.50 (primary diagnosis) - Get xray completed - Continue to take current medication. - Continue supportive care at home. - XR LUMBAR GENERAL 3V AP/LAT/L5-S1 2. Collagenous colitis - ICD9: 558.9, ICD10: K52.831 - Stable, continue to take current medication. Refills provided. - Any worsening symptoms dicussed re-establishing care with GI. - COLESTIPOL 1 GRAM TABLET - DIPHENOXYLATE-ATROPINE 2.5 MG-0.025 MG TABLET - FERROUS SULFATE 325 MG (65 MG IRON) TABLET - HYOSCYAMINE ER 0.375 MG TABLET,EXTENDED RELEASE,12 HR 3. Celiac disease - ICD9: 579.0, ICD10: K90.0 - COLESTIPOL 1 GRAM TABLET - COMPREHENSIVE METABOLIC PANEL 4. Hypothyroidism, unspecified type - ICD9: 244.9, ICD10: E03.9 - Instructed patient on importance of taking on an empty stomach either first thing in the morning or at bedtime. - Get repeat labs in 6 months prior to next visit. - LEVOTHYROXINE 88 MCG TABLET - THYROID STIMULATING HORMONE - T4 FREE/FREE THYROXINE 5. Hyperlipidemia, unspecified hyperlipidemia type - ICD9: 272.4, ICD10: E78.5 - Uncontrolled - Counseled on healthy diet and regular exercise - LIPID PANEL BASIC 6. Iron deficiency anemia, unspecified iron deficiency anemia type - ICD9: 280.9, ICD10: D50.9 - Stable, continue to take current supplement, get repeat labs in 6 months. - FERROUS SULFATE 325 MG (65 MG IRON) TABLET - COMPLETE BLOOD COUNT AND DIFFERENTIAL - IRON AND TIBC 7. Chronic pain of both knees - ICD9: 719.46, 338.29, ICD10: M25.561, M25.562, G89.29 - Stable, refill provided. - Any worsening pain instructed to follow up with Orthopedics. - MELOXICAM 15 MG TABLET Follow-up in 6 months or sooner pending test results. Discussed treatment plan and patient voices understanding. Patient's questions answered appropriately. Medications and potential side effects were discussed and patient voices understanding. Pepper Sousa APRN.VIVIAN This note was partially generated using Envoy voice recognition system. Note was reviewed for accuracy. There may be minor misspellings or grammar miscues with Envoy voice recognition. documented in this encounter [facility] 06-24-2024 Note HNO ID: [id number] Author: PEPPER SOUSA APRN.CNP Service: ? Author Type: Nurse Practitioner Type: Progress Notes Filed: 06/24/2024 13:06 Note Text: This is a 74 year old female who presents today with: Patient presents with: 6 Month Exam HISTORY OF PRESENT ILLNESS: Calista Cannon is a 74 year old female. Patient presents with: 6 Month Exam 6 month follow up On going back pain: Seems to come and go. Started after trying to fiber picker when he was ill. Pain is an ache. Using Tylenol and Meloxicam. Has applied heat to the area. No numbness or tingling to the area. Chronic diarrhea. Takes Imodium prn, Lomotil 2.5-0.025 mg 1 tab po QID prn and Cloestipol 1 gram, 3 tablets BID, Levbid 0.375 mg 1 tab po bid. Hx of celiac disease, eats gluten free. Used to follow with gastroenterology. Medication helps control how many episodes she has per day. Thyroid -taking Synthroid 88 mcg once daily. Denies palpitations, difficulty swallowing, or cold/heat intolerances. Lipids - Denies any exercise due to chronic knee pain issues. Tries to watch diet. On Colestipol 1 gram 3 tabs po bid. Anemia - Takes Iron every other day. Monitoring through routine labs. Pain - Chronic knee pain. Taking Mobic 15 mg once daily prn, Tylenol prn and Flexeril prn. Has previously seen with [facility]. Has been told in the past she needs b/l knee replacement due to stage IV arthritis. Hx of cortisone injections and Gel-One injections. Colonoscopy: Last completed in 2014, will be due in 2024. Would like to wait. Mammogram: Last completed in 2023. Pap: Last completed in 2015. Denied wanting at this time. PAST MEDICAL HISTORY: PAST MEDICAL HISTORY Diagnosis Date Acute gastritis without mention of hemorrhage Collagenous colitis 04/21/2010 Diarrhea Esophageal reflux Esophagitis, unspecified Fibrocystic breast disease 03/27/2014 Hyperlipidemia 06/21/2012 Hypothyroidism 06/06/2011 PAST SURGICAL HISTORY Procedure Laterality Date APPENDECTOMY remote open COLONOSCOPY FLX DX W/COLLJ SPEC WHEN PFRMD 11/13/92 Colonoscopy COLONOSCOPY FLX DX W/COLLJ SPEC WHEN PFRMD 01/21/2015 Colonoscopy COLONOSCOPY W/BIOPSY SINGLE/MULTIPLE 05/18/07 EGD TRANSORAL BIOPSY SINGLE/MULTIPLE 05/18/07 ESOPHAGOGASTRODUODENOSCOPY TRANSORAL DIAGNOSTIC 01/21/2015 EGD PAST SURGICAL HISTORY OF 03/2010 cervical fusion C4-C5 PAST SURGICAL HISTORY OF 07/03/2013 right thumb CMC arthroplasty and right middle trigger release ALLERGIES Gluten and Sulfa (Sulfonamide Antibiotics) MEDICATIONS Current Outpatient Medications Medication Sig levothyroxine (SYNTHROID) 88 mcg tablet Take 1 tablet by mouth once daily. Take on empty stomach. cyclobenzaprine (FLEXERIL) 5 mg tablet Take 1 tablet by mouth daily at bedtime. colestipol (COLESTID) 1 gram tablet Take 3 tablets by mouth two times a day. diphenoxylate-atropine (LOMOTIL) 2.5-0.025 mg per tablet Take 1 tablet by mouth four times a day as needed for diarrhea for up to 360 days. loperamide (IMODIUM) 2 mg cap(s) TAKE 1 CAPSULE BY MOUTH WITH EACH MEAL DAILY ferrous sulfate 325 mg (65 mg iron) tablet Take 1 tablet by mouth daily with breakfast. hyoscyamine SR (LEVBID) 0.375 mg 12 hr tablet Take 1 tablet by mouth twice daily. meloxicam (MOBIC) 15 mg tablet Take 1 tablet by mouth once daily. With food. MULTI-VITAMIN TAB Take one(1) tablet daily. No current facility-administered medications for this visit. FAMILY HISTORY Problem Relation Age of Onset Hypertension Father Diabetes Father Cancer Father LUNG Diabetes Mother Hypertension Mother Thyroid Mother Thyroid Brother Hypertension Brother Cancer Brother TESTICULAR CA Social History Tobacco Use Smoking status: Never Smokeless tobacco: Never Substance Use Topics Alcohol use: No Drug use: No REVIEW OF SYSTEMS GENERAL: No weight loss, malaise or fevers/chills HEENT: Negative for frequent or significant headaches, No changes in hearing or vision. NECK: Negative for lumps, goiter, pain and significant neck swelling RESPIRATORY: Negative for cough, hemoptysis, wheezing, dyspnea or shortness of breath CARDIOVASCULAR: Negative for chest pain, leg swelling, orthopnea, or palpitations GI: No nausea, vomiting, or diarrhea/constipation. No hematochezia/melena. No heartburn or reflux symptoms. : No history of dysuria, frequency or incontinence MUSCULOSKELETAL: + Back Pain . SKIN: Negative for lesions, rash, and itching ENDOCRINE: Negative for cold or heat intolerance, polyuria, polydipsia and goiter NEURO: No history of headaches, syncope, paralysis, seizures or tremors MOOD: Negative for depression, anxiety, or suicidal ideation. EXAM: BP 106/66 Pulse 78 Resp 16 Wt 62.1 kg (137 lb) LMP 10/09/2006 SpO2 98% BMI 21.78 kg/m? PHYSICAL EXAM: General Appearance: Well appearing, alert, in no acute distress, well-hydrated, well nourished. Skin: Skin color, texture, turgor (more content not included)... [facility] 04-01-2024 Telephone encounter Note Pt returned call and given provider's message below with verbalized understanding. [facility] 04-01-2024 Miscellaneous Notes Pt returned call and given provider's message below with verbalized understanding. Left a message for pt to call the office and ask to speak to a nurse. Orquidea Washington LPN Can you please call the patient and let her know that her mammogram was negative for any malignancy. She will be due for for repeat screening in 1 year. Thank you. Pepper Sousa APRN.CNP documented in this encounter [facility] 04-01-2024 Telephone encounter Note Left a message for pt to call the office and ask to speak to a nurse. Orquidea Washington LPN [facility] 04-01-2024 Telephone encounter Note Can you please call the patient and let her know that her mammogram was negative for any malignancy. She will be due for for repeat screening in 1 year. Thank you. Pepper Sousa APRN.CNP [facility] 03-27-2024 History of Present illness Narrative Radiology Service Progress Note PATIENT NAME: Calista Cannon DATE OF SERVICE: March 27, 2024 TIME: 10:04 AM PATIENT IDENTITY VERIFICATION COMPLETED USING TWO (2) IDENTIFIERS: Name and Date of confirmed by patient verbally. FALL SCREENING: Has the patient had 2 falls in the last year or 1 fall with injury or currently using an Ambulatory Assistive Device (Walker, Cane, Wheelchair, Crutches, etc.)? No PATIENT GENDER DATA: Female. status: : No status: NO. PATIENT RELEVANT IMPLANT DATA REVIEWED: Not Applicable PATIENT PRESENTS WITH AN IMPLANTABLE OR ATTACHED NUCLEAR MONITORING TECHNICIAN: No RADIOLOGY DEPARTMENT: Mammography PERIPHERAL IV DATA: Not applicable SIGNED BY: Kyle Lozoya March 27, 2024 10:04 AM documented in this encounter [facility] 03-27-2024 Note HNO ID: [id number] Author: JUDY OAKES Mammo Tech Service: ? Author Type: Song Lyricist Type: Progress Notes Filed: 03/27/2024 10:27 Note Text: Radiology Service Progress Note PATIENT NAME: Calista Cannon DATE OF SERVICE: March 27, 2024 TIME: 10:04 AM PATIENT IDENTITY VERIFICATION COMPLETED USING TWO (2) IDENTIFIERS: Name and Date of confirmed by patient verbally. FALL SCREENING: Has the patient had 2 falls in the last year or 1 fall with injury or currently using an Ambulatory Assistive Device (Walker, Cane, Wheelchair, Crutches, etc.)? No PATIENT GENDER DATA: Female. status: : No status: NO. PATIENT RELEVANT IMPLANT DATA REVIEWED: Not Applicable PATIENT PRESENTS WITH AN IMPLANTABLE OR ATTACHED NUCLEAR MONITORING TECHNICIAN: No RADIOLOGY DEPARTMENT: Mammography PERIPHERAL IV DATA: Not applicable SIGNED BY: Kyle Lozoya March 27, 2024 10:04 AM [facility] 12-01-2023 Instructions Pepper Sousa APRN.VIVIAN - 12/01/2023 11:20 AM EDT Get repeat fasting labs in 6 months prior to next exam Continue to take all medication as prescribed. Monitor chest pain, go to ER, may choose to do further cardiac testing, contact the office. May consider having a follow up with Gastroenterology. Due for mammogram Follow up in 6 months or sooner as needed. documented in this encounter [facility] 12-01-2023 History of Present illness Narrative This is a 73 year old female who presents today with: Patient presents with: 6 Month Exam HISTORY OF PRESENT ILLNESS: Calista Cannon is a 73 year old female. Patient presents with: 6 Month Exam 6 month follow up Chest pain: Monday got central chest pain that radiated up into the bilateral shoulders. Increased pain with deep breaths. Symptoms lasted about 12 hours. Was lifting her off the floor. 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 Has not had any other episodes. Chronic diarrhea. Takes Imodium prn, Lomotil 2.5-0.025 mg 1 tab po QID prn and Cloestipol 1 gram, 3 tablets BID, Levbid 0.375 mg 1 tab po bid. Hx of celiac disease, eats gluten free. Used to follow with gastroenterology. Medication helps control how many episodes she has per day. Thyroid -taking Synthroid 75 mcg once daily. Denies any missed dosages. Denies palpitations, difficulty swallowing, or cold/heat intolerances. Lipids - Denies any exercise due to chronic knee pain issues. Tries to watch diet. On Colestipol 1 gram 3 tabs po bid. Anemia - Takes Iron every other day, due to if taking daily causes GI upset. Monitoring through routine labs. Pain - Chronic knee pain. Taking Mobic 15 mg once daily prn, Tylenol prn and Flexeril prn. Has previously seen with [facility], but not in quite some time. Has been told in the past she needs b/l knee replacement due to stage IV arthritis. Hx of cortisone injections and Gel-One injections. Colonoscopy: Last completed in 2014, will be due in 2024. Mammogram: Last completed in 2021. Pap: Last completed in 2015 PAST MEDICAL HISTORY: PAST MEDICAL HISTORY Diagnosis Date Acute gastritis without mention of hemorrhage Collagenous colitis 04/21/2010 Diarrhea Esophageal reflux Esophagitis, unspecified Fibrocystic breast disease 03/27/2014 Hyperlipidemia 06/21/2012 Hypothyroidism 06/06/2011 PAST SURGICAL HISTORY Procedure Laterality Date APPENDECTOMY remote open COLONOSCOPY FLX DX W/COLLJ SPEC WHEN PFRMD 11/13/92 Colonoscopy COLONOSCOPY FLX DX W/COLLJ SPEC WHEN PFRMD 01/21/2015 Colonoscopy COLONOSCOPY W/BIOPSY SINGLE/MULTIPLE 05/18/07 EGD TRANSORAL BIOPSY SINGLE/MULTIPLE 05/18/07 ESOPHAGOGASTRODUODENOSCOPY TRANSORAL DIAGNOSTIC 01/21/2015 EGD PAST SURGICAL HISTORY OF 03/2010 cervical fusion C4-C5 PAST SURGICAL HISTORY OF 07/03/2013 right thumb CMC arthroplasty and right middle trigger release ALLERGIES Gluten and Sulfa (Sulfonamide Antibiotics) MEDICATIONS Current Outpatient Medications Medication Sig levothyroxine (SYNTHROID) 88 mcg tablet Take 1 tablet by mouth once daily. Take on empty stomach. cyclobenzaprine (FLEXERIL) 5 mg tablet Take 1 tablet by mouth daily at bedtime. colestipol (COLESTID) 1 gram tablet Take 3 tablets by mouth two times a day. diphenoxylate-atropine (LOMOTIL) 2.5-0.025 mg per tablet Take 1 tablet by mouth four times a day as needed for diarrhea for up to 360 days. loperamide (IMODIUM) 2 mg cap(s) TAKE 1 CAPSULE BY MOUTH WITH EACH MEAL DAILY ferrous sulfate 325 mg (65 mg iron) tablet Take 1 tablet by mouth daily with breakfast. hyoscyamine SR (LEVBID) 0.375 mg 12 hr tablet Take 1 tablet by mouth twice daily. meloxicam (MOBIC) 15 mg tablet Take 1 tablet by mouth once daily. With food. MULTI-VITAMIN TAB Take one(1) tablet daily. No current facility-administered medications for this visit. FAMILY HISTORY Problem Relation Age of Onset Hypertension Father Diabetes Father Cancer Father LUNG Diabetes Mother Hypertension Mother Thyroid Mother Thyroid Brother Hypertension Brother Cancer Brother TESTICULAR CA Social History Tobacco Use Smoking status: Never Smokeless tobacco: Never Substance Use Topics Alcohol use: No Drug use: No REVIEW OF SYSTEMS GENERAL: No weight loss, malaise or fevers/chills HEENT: Negative for frequent or significant headaches, No changes in hearing or vision. NECK: Negative for lumps, goiter, pain and significant neck swelling RESPIRATORY: Negative for cough, hemoptysis, wheezing, dyspnea or shortness of breath CARDIOVASCULAR: + Chest Pain GI: No nausea, vomiting, or diarrhea/constipation. No hematochezia/melena. No heartburn or reflux symptoms. : No history of dysuria, frequency or incontinence MUSCULOSKELETAL: Negative for joint pain or swelling. SKIN: Negative for lesions, rash, and itching ENDOCRINE: Negative for cold or heat intolerance, polyuria, polydipsia and goiter NEURO: No history of headaches, syncope, paralysis, seizures or tremors MOOD: Negative for depression, anxiety, or suicidal ideation. EXAM: BP 110/68 Pulse 84 Resp 16 Wt 70.3 kg (155 lb) LMP 10/09/2006 SpO2 98% BMI 24.64 kg/m PHYSICAL EXAM: General Appearance: Well appearing, alert, in no acute distress, well-hydrated, well nourished. Skin: Skin color, texture, turgor normal, no suspicious rashes or lesions. Head: Normocephalic, no masses, lesions, tenderness or abnormalities. Eyes: Anicteric sclera. Extraocular movements are intact. Lungs: Lungs clear to auscultation. No wheezing, rhonchi, rales. Heart: RRR without murmur, gallop, or rubs. No ectopy. Extremities: No deformities, edema, skin discoloration, clubbing or cyanosis. Good capillary refill. Peripheral Pulses: Normal, Capillary refill <2secs, strong peripheral pulses, Pulses palpable. Neurologic: Gait normal. Sensation grossly intact. Latest Ref [facility] 11/22/2023 WBC 3.70 - 11.00 k/uL 4.82 RBC 3.90 - 5.20 m/uL 4.19 Hemoglobin 11.5 - 15.5 g/dL 12.6 Hematocrit 36.0 - 46.0 % 40.1 MCV 80.0 - 100.0 fL 95.7 MCH 26.0 - 34.0 pg 30.1 MCHC 30.5 - 36.0 g/dL 31.4 RDW-CV 11.5 - 15.0 % 14.1 Platelet Count 150 - 400 k/uL 308 MPV 9.0 - 12.7 fL 9.8 Neut% % 60.5 Abs Neut (ANC) 1.45 - 7.50 k/uL 2.92 Lymph% % 27.0 Abs Lymph 1.00 - 4.00 k/uL 1.30 Weber% % 9.8 Abs Weber <0.87 k/uL 0.47 Eosin% % 1.5 Abs Eosin <0.46 k/uL 0.07 Baso% % 0.8 Abs Baso <0.11 k/uL 0.04 Immature Gran % % 0.4 IMMATURE GRANS (ABS) <0.10 k/uL <0.03 NRBC /100 WBC 0.0 Absolute nRBC <0.01 k/uL <0.01 DTYPE Auto Protein, Total 6.3 - 8.0 g/dL 6.5 Albumin 3.9 - 4.9 g/dL 4.0 Calcium 8.5 - 10.2 mg/dL 9.3 Bilirubin, Total 0.2 - 1.3 mg/dL 0.4 Alkaline Phosphatase 34 - 123 U/L 53 AST 13 - 35 U/L 22 ALT 7 - 38 U/L 17 Glucose 74 - 99 mg/dL 83 BUN 7 - 21 mg/dL 16 Creatinine 0.58 - 0.96 mg/dL 0.62 Sodium 136 - 144 mmol/L 139 Potassium 3.7 - 5.1 mmol/L 4.3 Chloride 98 - 107 mmol/L 106 CO2 22 - 30 mmol/L 26 Anion Gap 8 - 15 mmol/L 7 (L) eGFR >=60 mL/min/1.73m 95 Cholesterol, Total <200 mg/dL 210 (H) Triglyceride <150 mg/dL 99 HDL Cholesterol >39 mg/dL 85 Non HDL Cholesterol <130 mg/dL 125 Fasting Time hrs 15 VLDL Cholesterol <30 mg/dL 20 TC:HDL Ratio <5.10 2.47 LDL Cholesterol <100 mg/dL 105 (H) LDL:HDL Ratio <2.54 1.24 Iron 41 - 186 ug/dL 82 TIBC 232 - 386 ug/dL 326 Transferrin Saturation 15.0 - 57.0 % 25.2 TSH 0.270 - 4.200 mIU/L 3.810 Legend: (L) Low (H) High Behavioral Health Screening PHQ-2 Score: 0 (Lower risk for depression) MARIO-2 Score: 0 (Lower risk for anxiety) Recommendation: no further intervention at this time ECG: NSR, no ectopy or ST elevation/depression. ASSESSMENT/PLAN: 1. Other chest pain - ICD9: 786.59, ICD10: R07.89 (primary diagnosis) Chest pain of unclear etiology, patient with significant risk factor(s) of Hyperlipidemia - ECG showed NSR, denied wanting further cardiac workup at this time. Discussed completing echo and stress test in the future. - Red flag symptoms given to patient, she verbalizes understanding when to seek emergency care. - ECG COMPLETE 2. Celiac disease - ICD9: 579.0, ICD10: K90.0 - Stable, continue to take current medication. - May consider to have a follow-up with gastroenterology in the future. Denied wanting at this time. - Get repeat labs in 6 months prior to next office visit. - COMPREHENSIVE METABOLIC PANEL 3. Hypothyroidism, unspecified type - ICD9: 244.9, ICD10: E03.9 - Instructed patient on importance of taking on an empty stomach either first thing in the morning or at bedtime. - THYROID STIMULATING HORMONE 4. Hyperlipidemia, unspecified hyperlipidemia type - ICD9: 272.4, ICD10: E78.5 - Uncontrolled - Counseled on healthy diet and regular exercise - LIPID PANEL BASIC 5. Iron deficiency anemia, unspecified iron deficiency anemia type - ICD9: 280.9, ICD10: D50.9 - Stable, continue to take current medication. - COMPLETE BLOOD COUNT AND DIFFERENTIAL - IRON AND TIBC 6. Chronic pain of both knees - ICD9: 719.46, 338.29, ICD10: M25.561, M25.562, G89.29 - Stable, continue take current medication. 7. Vitamin D deficiency - ICD9: 268.9, ICD10: E55.9 - VITAMIN D 25 HYDROXY 8. Encounter for screening mammogram for malignant neoplasm of breast - ICD9: V76.12, ICD10: Z12.31 - CHIN SCREENING W HEIDI Follow-up in 6 months or sooner as needed. Discussed treatment plan and patient voices understanding. Patient's questions answered appropriately. Medications and potential side effects were discussed and patient voices understanding. Pepper Sousa APRN.VIVIAN This note was partially generated using [employer] voice recognition system. Note was reviewed for accuracy. There may be minor misspellings or grammar miscues with [employer]oy voice recognition. documented in this encounter [facility] 12-01-2023 Note HNO ID: [id number] Author: PEPPER SOUSA APRN.CNP Service: ? Author Type: Nurse Practitioner Type: Progress Notes Filed: 12/01/2023 11:46 Note Text: This is a 73 year old female who presents today with: Patient presents with: 6 Month Exam HISTORY OF PRESENT ILLNESS: Calista Cannon is a 73 year old female. Patient presents with: 6 Month Exam 6 month follow up Chest pain: Monday got central chest pain that radiated up into the bilateral shoulders. Increased pain with deep breaths. Symptoms lasted about 12 hours. Was lifting her off the floor. 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 Has not had any other episodes. Chronic diarrhea. Takes Imodium prn, Lomotil 2.5-0.025 mg 1 tab po QID prn and Cloestipol 1 gram, 3 tablets BID, Levbid 0.375 mg 1 tab po bid. Hx of celiac disease, eats gluten free. Used to follow with gastroenterology. Medication helps control how many episodes she has per day. Thyroid -taking Synthroid 75 mcg once daily. Denies any missed dosages. Denies palpitations, difficulty swallowing, or cold/heat intolerances. Lipids - Denies any exercise due to chronic knee pain issues. Tries to watch diet. On Colestipol 1 gram 3 tabs po bid. Anemia - Takes Iron every other day, due to if taking daily causes GI upset. Monitoring through routine labs. Pain - Chronic knee pain. Taking Mobic 15 mg once daily prn, Tylenol prn and Flexeril prn. Has previously seen with [facility], but not in quite some time. Has been told in the past she needs b/l knee replacement due to stage IV arthritis. Hx of cortisone injections and Gel-One injections. Colonoscopy: Last completed in 2014, will be due in 2024. Mammogram: Last completed in 2021. Pap: Last completed in 2015 PAST MEDICAL HISTORY: PAST MEDICAL HISTORY Diagnosis Date Acute gastritis without mention of hemorrhage Collagenous colitis 04/21/2010 Diarrhea Esophageal reflux Esophagitis, unspecified Fibrocystic breast disease 03/27/2014 Hyperlipidemia 06/21/2012 Hypothyroidism 06/06/2011 PAST SURGICAL HISTORY Procedure Laterality Date APPENDECTOMY remote open COLONOSCOPY FLX DX W/COLLJ SPEC WHEN PFRMD 11/13/92 Colonoscopy COLONOSCOPY FLX DX W/COLLJ SPEC WHEN PFRMD 01/21/2015 Colonoscopy COLONOSCOPY W/BIOPSY SINGLE/MULTIPLE 05/18/07 EGD TRANSORAL BIOPSY SINGLE/MULTIPLE 05/18/07 ESOPHAGOGASTRODUODENOSCOPY TRANSORAL DIAGNOSTIC 01/21/2015 EGD PAST SURGICAL HISTORY OF 03/2010 cervical fusion C4-C5 PAST SURGICAL HISTORY OF 07/03/2013 right thumb CMC arthroplasty and right middle trigger release ALLERGIES Gluten and Sulfa (Sulfonamide Antibiotics) MEDICATIONS Current Outpatient Medications Medication Sig levothyroxine (SYNTHROID) 88 mcg tablet Take 1 tablet by mouth once daily. Take on empty stomach. cyclobenzaprine (FLEXERIL) 5 mg tablet Take 1 tablet by mouth daily at bedtime. colestipol (COLESTID) 1 gram tablet Take 3 tablets by mouth two times a day. diphenoxylate-atropine (LOMOTIL) 2.5-0.025 mg per tablet Take 1 tablet by mouth four times a day as needed for diarrhea for up to 360 days. loperamide (IMODIUM) 2 mg cap(s) TAKE 1 CAPSULE BY MOUTH WITH EACH MEAL DAILY ferrous sulfate 325 mg (65 mg iron) tablet Take 1 tablet by mouth daily with breakfast. hyoscyamine SR (LEVBID) 0.375 mg 12 hr tablet Take 1 tablet by mouth twice daily. meloxicam (MOBIC) 15 mg tablet Take 1 tablet by mouth once daily. With food. MULTI-VITAMIN TAB Take one(1) tablet daily. No current facility-administered medications for this visit. FAMILY HISTORY Problem Relation Age of Onset Hypertension Father Diabetes Father Cancer Father LUNG Diabetes Mother Hypertension Mother Thyroid Mother Thyroid Brother Hypertension Brother Cancer Brother TESTICULAR CA Social History Tobacco Use Smoking status: Never Smokeless tobacco: Never Substance Use Topics Alcohol use: No Drug use: No REVIEW OF SYSTEMS GENERAL: No weight loss, malaise or fevers/chills HEENT: Negative for frequent or significant headaches, No changes in hearing or vision. NECK: Negative for lumps, goiter, pain and significant neck swelling RESPIRATORY: Negative for cough, hemoptysis, wheezing, dyspnea or shortness of breath CARDIOVASCULAR: + Chest Pain GI: No nausea, vomiting, or diarrhea/constipation. No hematochezia/melena. No heartburn or reflux symptoms. : No history of dysuria, frequency or incontinence MUSCULOSKELETAL: Negative for joint pain or swelling. SKIN: Negative for lesions, rash, and itching ENDOCRINE: Negative for cold or heat intolerance, polyuria, polydipsia and goiter NEURO: No history of headaches, syncope, paralysis, seizures or tremors MOOD: Negative for depression, anxiety, or suicidal ideation. EXAM: BP 110/68 Pulse 84 Resp 16 Wt 70.3 kg (155 lb) LMP 10/09/2006 SpO2 98% BMI 24.64 kg/m? PHYSICAL EXAM: General Appearance: Well appearing, alert, in no acute distress, well-hydrated, (more content not included)... [facility] 05-30-2023 Ria Porter Ma 05/30/2023 10:18 AM EST Increase Levothyroxine to 88 mcg once daily. A new prescription has been sent to [facility]. Once received start on this dosage. Continue current dosage at this time. For tailbone pain, use Tylenol and heat on the area. documented in this encounter [facility] 05-30-2023 History of Present illness Narrative Chief Complaint Patient presents with: Hospital F/U: F/U 6 Month HPI Calista Cannon is a 73 year old female who presents here today for a hospital follow up. Pt here today for a [facility] hospital follow up and 6 month follow up. GI/Uro - Chronic diarrhea. Reports with medication the frequency may be reduced but still has diarrhea. Takes Imodium prn, Lomotil 2.5-0.025 mg 1 tab po QID prn and Levbid 0.375 mg 1 tab po bid. Hx of celiac disease, eats gluten free. Thyroid - On current regimen of Synthroid 75 mcg once daily. Denies any missed dosages. Reports feeling okay sometimes on this dosage. Lipids - Denies any exercise due to chronic knee pain issues. Tries to watch diet. On Colestipol 1 gram 3 tabs po bid. Anemia - Takes Iron every other day, due to if taking daily causes GI upset. Monitoring through routine labs. Pain - Chronic knee pain. Taking Mobic 15 mg once daily prn, Tylenol prn and Flexeril prn. Has previously seen with [facility], but not in quite some time. Has been told in the past she needs b/l knee replacement due to stage IV arthritis. Hx of cortisone injections and Gel-One injections. Pt also states she's due for handicap placard renewals. Pt presented to [facility] ED on 05/20/23 for a fall. Pt reports that she slipped and fell when she was trying to get out of the shower. She stuck her leg out and grabbed onto there grab bar and the bath mat, slipped causing her to fall and hit her head on the bathroom vanity door she believes. Denies any LOC. Pt had to drive herself to the ED, had x-rays done due to having hip/tailbone pain. Pt had [address] while in ED and needs these removed today. Pt denies any other falls this year. Occasionally will use a cane when walking, but not often. Today she continues to have tailbone pain, rating it a 9/10 and described as a deep aching/bruise type pain that is constant. Also has LUQ pain that is located under her breast. Was having difficulty wearing her bra at times due to the pain. This pain is more positional and described as sharp. Pain rated a 6/10. Has used Tylenol for pain. ED visit: Narrative: Patient presents with a fall at home. She states she was stepping out of the shower when the mat slipped and she fell striking her head. She has a 3 cm laceration over the posterior parietal scalp. Bleeding is well controlled. She also has some slight right hip pain but was able to ambulate. She did not lose consciousness. She is not on anticoagulants. Medical decision making narrative: Tetanus update provided. Patient sent for CT scan of the head to evaluate for fracture, bleed. Pelvis and right hip x-rays will be obtained to evaluate for fracture. XR HIP: Pelvis 2-3 Views IMPRESSION: No fracture detected. Osteoarthritis. Electronically Signed: Jonel Meier MD at 21:[address] 05/20/23 21:23 IMPRESSION: Soft tissue laceration superficially. No bony fracture or acute intracranial hemorrhage. Electronically Signed: Jonel Meier MD at 21:49 EST HM - Declines Covid vaccines and Flu vaccine. Mammogram ordered, not yet completed. Needs to receive Shingrix through Pharmacy due to Medicare Insurance if wanting as well as RSV vaccine. Has paperwork for Adv Dir/Living Will, not yet completed. Past medical history, appointments, medications, allergies reviewed. Previous Medical History PAST MEDICAL HISTORY Diagnosis Date Acute gastritis without mention of hemorrhage Collagenous colitis 04/21/2010 Diarrhea Esophageal reflux Esophagitis, unspecified Fibrocystic breast disease 03/27/2014 Hyperlipidemia 06/21/2012 Hypothyroidism 06/06/2011 Previous Surgical History PAST SURGICAL HISTORY Procedure Laterality Date APPENDECTOMY remote open COLONOSCOPY FLX DX W/COLLJ SPEC WHEN PFRMD 11/13/92 Colonoscopy COLONOSCOPY FLX DX W/COLLJ SPEC WHEN PFRMD 01/21/2015 Colonoscopy COLONOSCOPY W/BIOPSY SINGLE/MULTIPLE 05/18/07 EGD TRANSORAL BIOPSY SINGLE/MULTIPLE 05/18/07 ESOPHAGOGASTRODUODENOSCOPY TRANSORAL DIAGNOSTIC 01/21/2015 EGD PAST SURGICAL HISTORY OF 03/2010 cervical fusion C4-C5 PAST SURGICAL HISTORY OF 07/03/2013 right thumb CMC arthroplasty and right middle trigger release Family History FAMILY HISTORY Problem Relation Age of Onset Hypertension Father Diabetes Father Cancer Father LUNG Diabetes Mother Hypertension Mother Thyroid Mother Thyroid Brother Hypertension Brother Cancer Brother TESTICULAR CA Patient Allergies ALLERGIES Allergen Reactions Gluten Sulfa (Sulfonamide * Current Medications Current Outpatient Medications on File Prior to Visit Medication Sig cyclobenzaprine (FLEXERIL) 5 mg tablet Take 1 tablet by mouth daily at bedtime. colestipol (COLESTID) 1 gram tablet Take 3 tablets by mouth two times a day. diphenoxylate-atropine (LOMOTIL) 2.5-0.025 mg per tablet Take 1 tablet by mouth four times a day as needed for diarrhea for up to 360 days. loperamide (IMODIUM) 2 mg cap(s) TAKE 1 CAPSULE BY MOUTH WITH EACH MEAL DAILY ferrous sulfate 325 mg (65 mg iron) tablet Take 1 tablet by mouth daily with breakfast. levothyroxine (SYNTHROID) 75 mcg tablet Take 1 tablet by mouth once daily. Take on empty stomach. For Thyroid hyoscyamine SR (LEVBID) 0.375 mg 12 hr tablet Take 1 tablet by mouth twice daily. meloxicam (MOBIC) 15 mg tablet Take 1 tablet by mouth once daily. With food. MULTI-VITAMIN TAB Take one(1) tablet daily. No current facility-administered medications on file prior to visit. Social History Social History Tobacco Use Smoking status: Never Smokeless tobacco: Never Substance Use Topics Alcohol use: No Drug use: No EXAM: BP 114/76 (BP Site: Left Arm, BP Position: Sitting, BP Cuff Size: Regular Adult) Pulse 68 Resp 18 Wt 70.7 kg (155 lb 12.8 oz) LMP 10/09/2006 BMI 24.77 kg/m General Appearance: Well appearing, alert, in no acute distress, well-hydrated, well nourished.. Head: 7 stephenie on top/back of head. Healed on exam. Back: Tenderness at tailbone, sacrum area. Lungs: Lungs clear to auscultation. No wheezing, rhonchi, rales.. Heart: RRR without murmur, gallop, or rubs. No ectopy. Musculoskeletal: No pain to palpate left upper quadrant, lower left ribs Health Maintenance List Covid-19 Vaccine(1) Never done Shingrix Vaccine(1 of 2) Never done RSV Vaccine(1 - 1-dose 60+ series) Never done Advance Directive Discussion Never done Mammogram Screening due on 11/24/2022 Influenza Vaccine(1) due on 02/17/2023 Pneumococcal Vaccine: 65+(2 - PCV) due on 11/25/2023 Annual PCP Team Chronic Disease Visit due on 11/25/2023 Colorectal Cancer Screening due on 01/21/2025 Diabetes Screening due on 11/17/2025 Lipid Screening due on 11/18/2027 DTaP,Tdap,Td Vaccine(3 - Td or Tdap) due on 05/20/2033 Bone Density Screening Completed Depression Assessment Completed Hepatitis C Screening Completed Data reviewed Care Everywhere Appointment on 05/26/2023 Component Date Value Cholesterol, Total 05/26/2023 197 Triglyceride 05/26/2023 85 HDL Cholesterol 05/26/2023 65 Non HDL Cholesterol 05/26/2023 132 (H) Fasting Time 05/26/2023 18 VLDL Cholesterol 05/26/2023 17 TC:HDL Ratio 05/26/2023 3.03 LDL Cholesterol 05/26/2023 115 (H) LDL:HDL Ratio 05/26/2023 1.77 Protein, Total 05/26/2023 6.5 Albumin 05/26/2023 3.8 (L) Calcium, Total 05/26/2023 9.1 Bilirubin, Total 05/26/2023 0.3 Alkaline Phosphatase 05/26/2023 53 AST 05/26/2023 34 ALT 05/26/2023 19 Glucose 05/26/2023 87 BUN 05/26/2023 11 Creatinine 05/26/2023 0.65 Sodium 05/26/2023 138 Potassium 05/26/2023 3.5 (L) Chloride 05/26/2023 99 CO2 05/26/2023 25 Anion Gap 05/26/2023 14 Estimated Glomerular Cliff* 05/26/2023 94 WBC 05/26/2023 3.11 (L) RBC 05/26/2023 4.46 Hemoglobin 05/26/2023 13.4 Hematocrit 05/26/2023 41.1 MCV 05/26/2023 92.2 MCH 05/26/2023 30.0 MCHC 05/26/2023 32.6 RDW-CV 05/26/2023 14.0 Platelet Count 05/26/2023 257 MPV 05/26/2023 10.9 Neutrophils % 05/26/2023 54.5 Abs Neut 05/26/2023 1.69 Lymphocytes % 05/26/2023 30.5 Abs Lymph 05/26/2023 0.95 (L) Monocytes % 05/26/2023 13.8 Abs Weber 05/26/2023 0.43 Eosinophils % 05/26/2023 0.3 Abs Eosin 05/26/2023 <0.03 Basophils % 05/26/2023 0.6 Abs Baso 05/26/2023 <0.03 Immature Granulocytes % 05/26/2023 0.3 Abs Immature Gran 05/26/2023 <0.03 NRBC 05/26/2023 0.0 Absolute nRBC 05/26/2023 <0.01 Diff Type 05/26/2023 Auto Iron 05/26/2023 24 (L) TIBC 05/26/2023 295 Transferrin Saturation 05/26/2023 8.1 (L) TSH 05/26/2023 5.950 (H) Vitamin D 25 Hydroxy 05/26/2023 82.1 (H) ASSESSMENT/PLAN: 1. Hospital discharge follow-up - ICD9: V67.59, ICD10: Z09 (primary diagnosis) - Stable today on exam 2. Encounter for staple removal - ICD9: V58.32, ICD10: Z48.02 - Stephenie removed today in office; laceration well healed 3. Celiac disease - ICD9: 579.0, ICD10: K90.0 - Stable 4. Collagenous colitis - ICD9: 558.9, ICD10: K52.831 - Continue current medication regimen. - Stable 5. Hypothyroidism, unspecified type - ICD9: 244.9, ICD10: E03.9 - Instructed patient on importance of taking on an empty stomach either first thing in the morning or at bedtime. - check TSH in 6 months - Increase to Levothyroxine 88 mcg once daily. - TSH BLD 6. Hyperlipidemia, unspecified hyperlipidemia type - ICD9: 272.4, ICD10: E78.5 - Controlled - Continue current medications - Counseled on healthy diet and regular exercise - COMP METABOLIC PANEL - LIPID PANEL BASIC 7. Iron deficiency anemia, unspecified iron deficiency anemia type - ICD9: 280.9, ICD10: D50.9 - Low, continue to monitor - CBC + DIFF 8. Chronic pain of both knees - ICD9: 719.46, 338.29, ICD10: M25.561, M25.562, G89.29 - Continue current medication regimen. - Cont f/u with [facility] 9. Pain in sacrum - ICD9: 724.6, ICD10: M53.3 - Continue to give time; symptomatic treatment - Tylenol and heat. 6 mo f/u with labs. I agree with the Chief Complaint, ROS, and Past Histories independently gathered by the clinical client support manager and the remaining scribed note accurately describes my personal service to the patient. Medical Decision Making: Problems: Moderate: 2+ stable chronic illnesses Data: Unique test result(s) reviewed: 3+ Unique test(s) ordered: 3+ Risk: Moderate: Drug management Medical Decision Making Level: 4 - Moderate Humera Lamas MD The documentation for this note was completed by Ria Petit Ma acting as scribe for Humera Lamas MD. May 30, 2023 10:11 AM. Ria Petit Ma documented in this encounter [facility] 05-22-2023 Miscellaneous Notes Pt notified. Elin James Ma OK to refill now and keep appt on the Humera Lamas MD Pt calling in as she had a fall getting out of the bathtub on Monday. She fell and hit her head on the vanity and has 7 stephenie on the top of her head towards the back. The ER provider said they needed removed in 10-14 days. Pt already has an appt on 05/30 and the ER provider said it would be fine to get them out on that date. Pt's appt is a 6 month f/u but only 20 mins. Moved pt's appt to earlier that day into a hosp f/u appt and scheduled it for 40 mins and added staple removal. Pt also requesting refills on all of her medications. Per med list, iron, Synthroid and Levbid should not need refills. The other meds she is requesting have not been filled in a long time. Called [facility] home delivery to confirm pt's med list and who ordered medications. She does not need refills yet on her Synthroid, iron and Levbid. The other medications she is requesting are Cyclobenzaprine, Meloxicam, Colestipol, Lomotil and Imodium. Per pharmacist at [facility], pt has refills on the Meloxicam as that was ordered by Dr. Lei Villavicencio. Pt states the other meds she had stopped for awhile but now has started them again or had taken them on an as needed basis. Pt states she still has diarrhea and goes about 15 times in the morning and less in the afternoon. That is why she is taking the Lomotil and Imodium on a daily basis now. Pt states she has a hx of celiac and colitis and saw a residential program worker in the past but stopped going. Pt's next appt is 05/30 for 40 mins. Please confirm if want to fill meds now or discuss with pt at upcoming appt. documented in this encounter [facility] 06-21-2022 Miscellaneous Notes PATIENT NOTIFIED OF INFORMATION Message left for pt to call back. Elin James Ma I would suggest finishing off the augmentin and giving it more time. Since the pain has improved it is getting better; sometimes it takes a couple of weeks for the fluid to clear up completely Humera Lamas MD Patient calls and states that she continues to have issues with her ear. Patient states that it does feel better. Patient states that she does not have sharp shooting pain in ear. Patient continues to have some pain, fullness in her ear, and dizziness. Patient is on day 6 of Augmentin. Patient asking if she needs a different prescription? Please review and advise, Ronit Steve RN documented in this encounter [facility] 06-16-2022 Instructions Pepper Sousa APRN.VIVIAN - 06/16/2022 11:46 AM EST Start Augmentin, take with food. Continue with NSAIDS, antiinflammatories as needed for pain or fever. Do not stick anything into the ear May use warm or cool compress at the base of the jaw to help with pain. Follow up as needed. documented in this encounter [facility] 06-16-2022 History of Present illness Narrative This is a 72 year old female who presents today with: Patient presents with: Acute Visit: right ear pain HISTORY OF PRESENT ILLNESS: Calista Cannon is a 72 year old female. Patient presents with: Acute Visit: right ear pain Here in the office for right ear pain. Pain started 1 week ago. Has noticed right side of neck is tender. No fever or chills. No seeping noted from the ear. Using NSAIDS as needed. Having ongoing stabbing pain that radiates into the jaw. PAST MEDICAL HISTORY: PAST MEDICAL HISTORY Diagnosis Date Acute gastritis without mention of hemorrhage Collagenous colitis 04/21/2010 Diarrhea Esophageal reflux Esophagitis, unspecified Fibrocystic breast disease 03/27/2014 Hyperlipidemia 06/21/2012 Hypothyroidism 06/06/2011 PAST SURGICAL HISTORY Procedure Laterality Date APPENDECTOMY remote open COLONOSCOPY FLX DX W/COLLJ SPEC WHEN PFRMD 11/13/92 Colonoscopy COLONOSCOPY FLX DX W/COLLJ SPEC WHEN PFRMD 01/21/2015 Colonoscopy COLONOSCOPY W/BIOPSY SINGLE/MULTIPLE 05/18/07 EGD TRANSORAL BIOPSY SINGLE/MULTIPLE 05/18/07 ESOPHAGOGASTRODUODENOSCOPY TRANSORAL DIAGNOSTIC 01/21/2015 EGD PAST SURGICAL HISTORY OF 03/2010 cervical fusion C4-C5 PAST SURGICAL HISTORY OF 07/03/2013 right thumb CMC arthroplasty and right middle trigger release ALLERGIES Gluten and Sulfa (Sulfonamide Antibiotics) MEDICATIONS Current Outpatient Medications Medication Sig cyclobenzaprine (FLEXERIL) 5 mg tablet Take 1 tablet by mouth daily at bedtime. ferrous sulfate 325 mg (65 mg iron) tablet Take 1 tablet by mouth daily with breakfast. meloxicam (MOBIC) 15 mg tablet Take 1 tablet by mouth once daily. With food. colestipol (COLESTID) 1 gram tablet Take 3 tablets by mouth twice daily. hyoscyamine SR (LEVBID) 0.375 mg 12 hr tablet Take 1 tablet by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 Date Resolved Date Trigger middle finger of right hand 07/08/2013 05/05/2016 Vitamin D deficiency 06/06/2011 05/05/2016 Esophagitis, unspecified 05/18/2007 016 Disorders of bursae and tend ons in shoulder region, unspecified 06/14/2005 05/05/2016 Major depressive disorder, single episode, unspe cified 06/28/2017 documented as of this encounter (statuses as of 09/14/2021) [facility] History of Past illness Narrative* Problem Noted Date Resolved Date Trigger middle finger of right hand 07/08/2013 05/05/2016 Vitamin D deficiency 06/06/2011 05/05/2016 Esophagitis, unspecified 05/18/2007 016 Disorders of bursae and tend ons in shoulder region, unspecified 06/14/2005 05/05/2016 Major depressive disorder, single episode, unspe cified 06/28/2017 documented as of this encounter (statuses as of 11/20/2021) [facility] History of Past illness Narrative* Problem Noted Date Resolved Date Trigger middle finger of right hand 07/08/2013 05/05/2016 Vitamin D deficiency 06/06/2011 05/05/2016 Esophagitis, unspecified 05/18/2007 016 Disorders of bursae and tend ons in shoulder region, unspecified 06/14/2005 05/05/2016 Major depressive disorder, single episode, unspe cified 06/28/2017 documented as of this encounter (statuses as of 11/25/2021) [facility] History of Past illness Narrative* Problem Noted Date Resolved Date Trigger middle finger of right hand 07/08/2013 05/05/2016 Vitamin D deficiency 06/06/2011 05/05/2016 Esophagitis, unspecified 05/18/2007 016 Disorders of bursae and tend ons in shoulder region, unspecified 06/14/2005 05/05/2016 Major depressive disorder, single episode, unspe cified 06/28/2017 documented as of this encounter (statuses as of 11/25/2021) [facility] of Past illness Narrative* Problem Noted Date Resolved Date Trigger middle finger of right hand 07/08/2013 05/05/2016 Vitamin D deficiency 06/06/2011 05/05/2016 Esophagitis, unspecified 05/18/2007 016 Disorders of bursae and tend ons in shoulder region, unspecified 06/14/2005 05/05/2016 Major depressive disorder, single episode, unspe cified 06/28/2017 documented as of this encounter (statuses as of 11/27/2021) [facility] of Past illness Narrative* Problem Noted Date Resolved Date Trigger middle finger of right hand 07/08/2013 05/05/2016 Vitamin D deficiency 06/06/2011 05/05/2016 Esophagitis, unspecified 05/18/2007 016 Disorders of bursae and tend ons in shoulder region, unspecified 06/14/2005 05/05/2016 Major depressive disorder, single episode, unspe cified 06/28/2017 documented as of this encounter (statuses as of 03/08/2022) [facility] of Past illness Narrative* Problem Noted Date Resolved Date Trigger middle finger of right hand 07/08/2013 05/05/2016 Vitamin D deficiency 06/06/2011 05/05/2016 Esophagitis, unspecified 05/18/2007 016 Disorders of bursae and tend ons in shoulder region, unspecified 06/14/2005 05/05/2016 Major depressive disorder, single episode, unspe cified 06/28/2017 documented as of this encounter (statuses as of 04/21/2022) [facility] of Past illness Narrative* Problem Noted Date Resolved Date Trigger middle finger of right hand 07/08/2013 05/05/2016 Vitamin D deficiency 06/06/2011 05/05/2016 Esophagitis, unspecified 05/18/2007 016 Disorders of bursae and tend ons in shoulder region, unspecified 06/14/2005 05/05/2016 Major depressive disorder, single episode, unspe cified 06/28/2017 documented as of this encounter (statuses as of 04/21/2022) [facility] of Past illness Narrative* Problem Noted Date Resolved Date Trigger middle finger of right hand 07/08/2013 05/05/2016 Vitamin D deficiency 06/06/2011 05/05/2016 Esophagitis, unspecified 05/18/2007 016 Disorders of bursae and tend ons in shoulder region, unspecified 06/14/2005 05/05/2016 Major depressive disorder, single episode, unspe cified 06/28/2017 documented as of this encounter (statuses as of 05/24/2022) [facility] of Past illness Narrative* Problem Noted Date Resolved Date Trigger middle finger of right hand 07/08/2013 05/05/2016 Vitamin D deficiency 06/06/2011 05/05/2016 Esophagitis, unspecified 05/18/2007 016 Disorders of bursae and tend ons in shoulder region, unspecified 06/14/2005 05/05/2016 Major depressive disorder, single episode, unspe cified 06/28/2017 documented as of this encounter (statuses as of 05/25/2022) [facility] of Past illness Narrative* Problem Noted Date Resolved Date Trigger middle finger of right hand 07/08/2013 05/05/2016 Vitamin D deficiency 06/06/2011 05/05/2016 Esophagitis, unspecified 05/18/2007 016 Disorders of bursae and tend ons in shoulder region, unspecified 06/14/2005 05/05/2016 Major depressive disorder, single episode, unspe cified 06/28/2017 documented as of this encounter (statuses as of 06/22/2022) [facility] of Past illness Narrative* Problem Noted Date Resolved Date Trigger middle finger of right hand 07/08/2013 05/05/2016 Vitamin D deficiency 06/06/2011 05/05/2016 Esophagitis, unspecified 05/18/2007 016 Disorders of bursae and tend ons in shoulder region, unspecified 06/14/2005 05/05/2016 Major depressive disorder, single episode, unspe cified 06/28/2017 documented as of this encounter (statuses as of 06/23/2022) [facility] of Past illness Narrative* Problem Noted Date Diagnosed Date Resolved Date Trigger middle finger of right hand 07/08/2013 05/05/2016 Vitamin D deficiency 06/06/2011 016 Esophagitis, unspecified 05/18/2007 Disorders of bursae and tend ons in shoulder region, unspecified 06/14/2005 05/05/2016 Major depressive disorder, s shiela episode, unspecified 06/28/2017 documented as of this encounter (statuses as of 01/16/2023) [facility] of [facility] illness Narrative* Problem Noted Date Diagnosed Date Resolved Date Trigger middle finger of right hand 07/08/2013 05/05/2016 Vitamin D deficiency 06/06/2011 016 Esophagitis, unspecified 05/18/2007 Disorders of bursae and tend ons in shoulder region, unspecified 06/14/2005 05/05/2016 Major depressive disorder, s shiela episode, unspecified 06/28/2017 documented as of this encounter (statuses as of 05/23/2023) [facility] of [facility] illness Narrative* Problem Noted Date Diagnosed Date Resolved Date Trigger middle finger of right hand 07/08/2013 05/05/2016 Vitamin D deficiency 06/06/2011 016 Esophagitis, unspecified 05/18/2007 Disorders of bursae and tend ons in shoulder region, unspecified 06/14/2005 05/05/2016 Major depressive disorder, s shiela episode, unspecified 06/28/2017 documented as of this encounter (statuses as of 05/31/2023) [facility] note* Diagnosis Hypothyroidism, unspecified type- Primary Hyperlipidemia, unspecified hyperlipidemia type Celiac disease Anemia, unspecified type Weight gain Abnormal weight gain Vitamin D deficiency Unspecified vitamin D deficiency documented in this encounter [facility] note* Diagnosis Encounter for screening mammogram for breast cancer documented in this encounter [facility] note* Diagnosis Iron deficiency anemia, unspecified iron deficiency anemia type- Primary documented in this encounter [facility] note* Diagnosis Iron deficiency anemia, unspecified iron deficiency anemia type documented in this encounter [facility] note* Diagnosis Iron deficiency anemia, unspecified iron deficiency anemia type- Primary Hypothyroidism, unspecified type Hyperlipidemia, unspecified hyperlipidemia type Chronic pain of both knees Collagenous colitis Other and unspecified noninfectious gastroenteritis and colitis Vitamin D deficiency Unspecified vitamin D deficiency documented in this encounter [facility] note* Diagnosis Celiac disease- Primary Hypothyroidism, unspecified type Hyperlipidemia, unspecified hyperlipidemia type Vitamin D deficiency Unspecified vitamin D deficiency Anemia, unspecified type documented in this encounter [facility] note* Diagnosis Acute otitis media, unspecified otitis media type- Primary documented in this encounter [facility] note* Diagnosis Encounter for screening mammogram for breast cancer documented in this encounter [facility] noteNo assessment information availableWRiverview Health Institute Work Phone: Evaluation note* Diagnosis Chronic pain of both knees Collagenous colitis Other and unspecified noninfectious gastroenteritis and colitis Celiac disease documented in this encounter [facility] note* Diagnosis Hypothyroidism, unspecified type- Primary Hospital discharge follow-up Other follow-up examination Encounter for staple removal Encounter for removal of sutures Celiac disease Collagenous colitis Other and unspecified noninfectious gastroenteritis and colitis Hyperlipidemia, unspecified hyperlipidemia type Iron deficiency anemia, unspecified iron deficiency anemia type Chronic pain of both knees Pain in sacrum documented in this encounter [facility] note* Diagnosis Other chest pain- Primary Celiac disease Hypothyroidism, unspecified type Hyperlipidemia, unspecified hyperlipidemia type Iron deficiency anemia, unspecified iron deficiency anemia type Chronic pain of both knees Vitamin D deficiency Unspecified vitamin D deficiency Encounter for screening mammogram for malignant neoplasm of breast Other screening mammogram [facility] Diagnosis Encounter for screening mammogram for malignant neoplasm of breast Other screening mammogram documented in this encounter [facility] note* Diagnosis Acute midline low back pain without sciatica- Primary Collagenous colitis Other and unspecified noninfectious gastroenteritis and colitis Celiac disease Hypothyroidism, unspecified type Hyperlipidemia, unspecified hyperlipidemia type Iron deficiency anemia, unspecified iron deficiency anemia type Chronic pain of both knees documented in this encounter [facility] note* Diagnosis Acute midline low back pain without sciatica documented in this encounter [facility] note* Diagnosis Asymptomatic postmenopausal status- Primary documented in this encounter [facility] note* Diagnosis Asymptomatic postmenopausal status documented in this encounter [facility] for referral (narrative)* Diagnostic Procedure Only (Routine) - Pending Review Specialty Diagnoses / Procedures Referred By Cassius szymanski Referred To Contact [facility] Diagnoses Encounter for screening mammogram for breast cancer Procedures CHIN SCREENING SCREENING MAMMOGRAPHY BI 2-VIEW BREAST INC Humera Perales MD [address] [place] [address] [facility] [address] [place] [address] Referral ID Status Reason Start Date Expiration Date Visits Requested Visits Authorized [id number] Pending Review Auto-Generat ed Referral 01/11/2023 02/10/2024 1 1 [facility] for referral (narrative)* Diagnostic Procedure Only (Routine) - Pending Review Specialty Diagnoses / Procedures Referred By Cassius szymanski Referred To Contact [facility] Diagnoses Encounter for screening mammogram for malignant neoplasm of breast Procedures CHIN SCREENING W HEIDI SCREENING DIGITAL BREAST TOMOSYNTHESIS BI SCREENING MAMMOGRAPHY BI 2-VIEW BREAST INC Pepper Poe APRN.CNP [address] [place] [address] [facility] [address] [place] [address] Referral ID Status Reason Start Date Expiration Date Visits Requested Visits Authorized [id number] Pending Review Auto-Generat ed Referral 12/01/2023 12/30/2024 1 1 * Outpatient Procedure (Routine) - Pending Review Specialty Diagnoses / Procedures Referred By Contac t Referred [facility] Diagnoses Other chest pain Procedures ECG COMPLETE ECG ROUTINE ECG W/LEAST 12 LDS W/I&R Pepper Sousa APRN.SENIOR PRINCIPAL ARCHITECT [address] [place] [address] [facility] [address] [place] [address] Referral ID Status Reason Start Date Expiration Date Visits Requested Visits Authorized [id number] Pending Review Auto-Generat ed Referral 12/01/2023 11/30/2024 1 1 [facility] for referral (narrative)* Diagnostic Procedure Only (Routine) - Closed Specialty Diagnoses / Procedures Referred By Contac t Referred To Contact [facility] Diagnoses Acute midline low back pain without sciatica Procedures XR LUMBAR GENERAL 3V AP/LAT/L5-S1 RADEX SPINE LUMBOSACRAL 2/3 VIEWS Pepper Sousa APRN.SENIOR PRINCIPAL ARCHITECT [address] [place] [address] [place] [address] Referral ID Status Reason Start Date Expiration Date V isits Requested Visits Authorized [id number] Closed Auto-Generate d Referral 06/24/2024 07/24/2025 1 1 [facility] for referral (narrative)* Diagnostic Procedure Only (Routine) - New Request Specialty Diagnoses / Procedures Referred By Contac t Referred To Contact [facility] Diagnoses Asymptomatic postmenopausal status Procedures DXA-AXIAL SKELETON DXA BONE DENSITY STUDY 1/> SITES AXIAL SKEL Pepper Sousa APRN.SENIOR PRINCIPAL ARCHITECT [address] [place] [address] [place] [id number] Referral ID Status Reason Start Date Expiration Date Visits Requested Visits Authorized [id number] New Request Auto-Generat ed Referral 06/28/2024 07/28/2025 1 1 [facility] for visit Narrative* Diagnostic Procedure Only (Routine) - Closed Specialty Diagnoses / Procedures Referred By Contac t Referred To Contact [facility] Diagnoses Encounter for screening mammogram for malignant neoplasm of breast Procedures CHIN SCREENING W HEIDI SCREENING DIGITAL BREAST TOMOSYNTHESIS BI SCREENING MAMMOGRAPHY BI 2-VIEW BREAST INC CAD Pepper Sousa APRN.SENIOR PRINCIPAL ARCHITECT [address] [place] [address] [facility] [address] [place] [address] Referral ID Status Reason Start Date Expiration Date V isits Requested Visits Authorized [id number] Closed Auto-Generate d Referral 12/01/2023 12/30/2024 1 1 [facility] for visit Narrative* Diagnostic Procedure Only (Routine) - Closed Specialty Diagnoses / Procedures Referred By Contac t Referred To Contact XR IMAGING Diagnoses Acute midline low back pain without sciatica Procedures XR LUMBAR GENERAL 3V AP/LAT/L5-S1 RADEX SPINE LUMBOSACRAL 2/3 VIEWS Pepper Sousa, SCOT.SENIOR PRINCIPAL ARCHITECT [address] [place] [address] [place] [id number] Referral ID Status Reason Start Date Expiration Date V isits Requested Visits Authorized [id number] Closed Auto-Generate d Referral 06/24/2024 07/24/2025 1 1 [facility] for visit Narrative* Diagnostic Procedure Only (Routine) - Closed Specialty Diagnoses / Procedures Referred By Contac t Referred To Contact X[facility] IMAG[facility] Diagnoses Asymptomatic postmenopausal status Procedures DXA-AXIAL SKELETON DXA BONE DENSITY STUDY 1/> SITES AXIAL SKEL Pepper Sousa, SCOT.SENIOR PRINCIPAL ARCHITECT [address] [place] [address] Phone: tel: fax: [place] [address] Referral ID Status Reason Start Date Expiration Date V isits Requested Visits Authorized [id number] Closed Auto-Generate d Referral 06/28/2024 07/28/2025 1 1 [facility] Chief Complaint and Reason for Visit Chief Complaint FALL, HEAD INJURY Advance Directives Advance Directive Response Recorded Date/ Time Living Will No May 20 9:29pm Power of Joy Operator Helper No May 20, 2023 9:29pm Summary Purpose Family History No Family History Records FoundNo Family History Records Found Additional Source Comments Source Comments (unrecognize d section and content) In the event this informatio n is protected by the Federal Confidentiality of Alcohol and Drug Abuse Patient Records regulations: The Federal rules restrict any use of the information to criminally investigate or prosecute any alcohol or drug abuse patient.[facility] the event this information is protected by the Federal Confidentiality of Alcohol and Drug Abuse Patient Records regulations: The Federal rules restrict any use of the information to criminally investigate or prosecute any alcohol or drug abuse patient.[facility] Center[facility] the event this information is protected by the Federal Confidentiality of Alcohol and Drug Abuse Patient Records regulations: The Federal rules restrict any use of the information to criminally investigate or prosecute any alcohol or drug abuse patient.[facility] Center[facility] the event this information is protected by the Federal Confidentiality of Alcohol and Drug Abuse Patient Records regulations: The Federal rules restrict any use of the information to criminally investigate or prosecute any alcohol or drug abuse patient.[facility] Center[facility] the event this information is protected by the Federal Confidentiality of Alcohol and Drug Abuse Patient Records regulations: The Federal rules restrict any use of the information to criminally investigate or prosecute any alcohol or drug abuse patient.[facility] Center[facility] the event this information is protected by the Federal Confidentiality of Alcohol and Drug Abuse Patient Records regulations: The Federal rules restrict any use of the information to criminally investigate or prosecute any alcohol or drug abuse patient.[facility] Center[facility] the event this information is protected by the Federal Confidentiality of Alcohol and Drug Abuse Patient Records regulations: The Federal rules restrict any use of the information to criminally investigate or prosecute any alcohol or drug abuse patient.[facility] Center[facility] the event this information is protected by the Federal Confidentiality of Alcohol and Drug Abuse Patient Records regulations: The Federal rules restrict any use of the information to criminally investigate or prosecute any alcohol or drug abuse patient.[facility] Center[facility] the event this information is protected by the Federal Confidentiality of Alcohol and Drug Abuse Patient Records regulations: The Federal rules restrict any use of the information to criminally investigate or prosecute any alcohol or drug abuse patient.[facility] Center[facility] the event this information is protected by the Federal Confidentiality of Alcohol and Drug Abuse Patient Records regulations: The Federal rules restrict any use of the information to criminally investigate or prosecute any alcohol or drug abuse patient.[facility] Center[facility] the event this information is protected by the Federal Confidentiality of Alcohol and Drug Abuse Patient Records regulations: The Federal rules restrict any use of the information to criminally investigate or prosecute any alcohol or drug abuse patient.[facility] CenterIn the event this information is protected by the Federal Confidentiality of Alcohol and Drug Abuse Patient Records regulations: The Federal rules restrict any use of the information to criminally investigate or prosecute any alcohol or drug abuse patient.[facility] Center[facility] the event this information is protected by the Federal Confidentiality of Alcohol and Drug Abuse Patient Records regulations: The Federal rules restrict any use of the information to criminally investigate or prosecute any alcohol or drug abuse patient.[facility] Center[facility] the event this information is protected by the Federal Confidentiality of Alcohol and Drug Abuse Patient Records regulations: The Federal rules restrict any use of the information to criminally investigate or prosecute any alcohol or drug abuse patient.[facility] Center[facility] the event this information is protected by the Federal Confidentiality of Alcohol and Drug Abuse Patient Records regulations: The Federal rules restrict any use of the information to criminally investigate or prosecute any alcohol or drug abuse patient.[facility] CenterIn the event this information is protected by the Federal Confidentiality of Alcohol and Drug Abuse Patient Records regulations: The Federal rules restrict any use of the information to criminally investigate or prosecute any alcohol or drug abuse patient.[facility] Center[facility] the event this information is protected by the Federal Confidentiality of Alcohol and Drug Abuse Patient Records regulations: The Federal rules restrict any use of the information to criminally investigate or prosecute any alcohol or drug abuse patient.[facility] CenterIn the event this information is protected by the Federal Confidentiality of Alcohol and Drug Abuse Patient Records regulations: The Federal rules restrict any use of the information to criminally investigate or prosecute any alcohol or drug abuse patient.[facility] CenterIn the event this information is protected by the Federal Confidentiality of Alcohol and Drug Abuse Patient Records regulations: The Federal rules restrict any use of the information to criminally investigate or prosecute any alcohol or drug abuse patient.[facility] CenterIn the event this information is protected by the Federal Confidentiality of Alcohol and Drug Abuse Patient Records regulations: The Federal rules restrict any use of the information to criminally investigate or prosecute any alcohol or drug abuse patient.[facility] CenterIn the event this information is protected by the Federal Confidentiality of Alcohol and Drug Abuse Patient Records regulations: The Federal rules restrict any use of the information to criminally investigate or prosecute any alcohol or drug abuse patient.[facility] CenterIn the event this information is protected by the Federal Confidentiality of Alcohol and Drug Abuse Patient Records regulations: The Federal rules restrict any use of the information to criminally investigate or prosecute any alcohol or drug abuse patient.[facility] CenterIn the event this information is protected by the Federal Confidentiality of Alcohol and Drug Abuse Patient Records regulations: The Federal rules restrict any use of the information to criminally investigate or prosecute any alcohol or drug abuse patient.[facility] CenterIn the event this information is protected by the Federal Confidentiality of Alcohol and Drug Abuse Patient Records regulations: The Federal rules restrict any use of the information to criminally investigate or prosecute any alcohol or drug abuse patient.[facility] Reason for Visit (unrecogniz ed section and content) Reason Onset Date Comments Population Health Navigation Outreach 09/14/2021 [facility] Reason Comments F/U 3 Month Reason Comments Results Reason Comments Lab Orders Reason Onset Date Comments Refill Request 04/21/2022 Reason Comments F/U 6 Month Reason Comments Acute Visit right ear pain Reason Comments Patient Update Reason Comments ER F/U Medication Problem Appointment needs staple removal Reason Comments Hospital F/U F/U 6 Month Reason Comments 6 Month Exam Reason Comments Results Mammogram Reason Comments 6 Month Exam Reason Comments Results Lumbar xray Reason Onset Date Comments Results 08/19/2024 Care Teams (unrecognized sec tion and content) Manager Occupational Relationship Specialty Start Date End Date Humera Lamas MD [address] [place], [place] [id number] PCP - General Family Practice 02/03/21 Manager Occupational Relationship Specialty Start Date End Date Humera Lamas MD [address] [place], [place] [id number] PCP - General Family Practice 02/03/21 Manager Occupational Relationship Specialty Start Date End Date Humera Lamas MD [address] [facility] [place] [address] PCP - General Family Practice 02/03/21 Manager Occupational Relationship Specialty Start Date End Date Humera Lamas MD [address] [place] [place] [address] PCP - General Family Practice 02/03/21 Manager Occupational Relationship Specialty Start Date End Date Humera Lamas MD [address] [place] [place] [address] PCP - General Family Medicine 02/03/21 Manager Occupational Relationship Specialty Start Date End Date Humera Lamas MD [address] [place] [place] [address] PCP - General Family Medicine 02/03/21 Manager Occupational Relationship Specialty Start Date End Date Humera Lamas MD [address] [place] [place] [address] PCP - General Family Medicine 02/03/21 Manager Occupational Relationship Specialty Start Date End Date Humera Lamas MD [address] [place] [place] [address] PCP - General Family Medicine 02/03/21 Manager Occupational Relationship Specialty Start Date End Date Humera Lamas MD [address] [place] [place] [address] PCP - General Family Medicine 02/03/21 Manager Occupational Relationship Specialty Start Date End Date Humera Lamas MD [address] [place] [place] [address] PCP - General Family Medicine 02/03/21 Manager Occupational Relationship Specialty Start Date End Date Humera Lamas MD [address] [place] [place] [address] PCP - General Family Medicine 02/03/21 Team Status: Active Member Role Status Dates Dr. Mark Waters III, MD Family Provider Active Dr. Humera Lamas MD Primary Care Provider Active Team Status: Inactive Member Role Status Dates Dr. Humera Lamas MD Primary Care Provider Active Dr. Liane Woody MD Emergency Provider Active Manager Occupational Relationship Specialty Start Date End Date Humera Lamas MD [address] [place] [place] [address] PCP - General Family Medicine 02/03/21 Manager Occupational Relationship Specialty Start Date End Date Humera Lamas MD [address] [facility] [place] [address] PCP - General Family Medicine 02/03/21 Manager Occupational Relationship Specialty Start Date End Date Humera Lamas MD [address] [place] [place] [address] PCP - General Family Medicine 02/03/21 Manager Occupational Relationship Specialty Start Date End Date Mark Waters III, MD NO [place]WARDING ADDRESS PCP - General 04/09/02 02/02/21 Manager Occupational Relationship Specialty Start Date End Date Humera Lamas MD [address] [place] [place] [address] PCP - General Family Medicine 02/03/21 Manager Occupational Relationship Specialty Start Date End Date Humera Lamas MD [address] [place] [place] [address] PCP - General Family Medicine 02/03/21 Manager Occupational Relationship Specialty Start Date End Date Humera Lamas MD [address] [place] [place] [address] PCP - General Family Medicine 02/03/21 Pepper Sousa APRN.SENIOR PRINCIPAL ARCHITECT [address] [place] [place] [address] [facility] 05/26/24 Alessio Corral APRN.SENIOR PRINCIPAL ARCHITECT [address] [place] [place] [address] [facility] 06/04/24 Manager Occupational Relationship Specialty Start Date End Date Humera Lamas MD [address] [place] [address] PCP - General Family Medicine 02/03/21 Pepper Sousa APRN.SENIOR PRINCIPAL ARCHITECT [address] [place] [address] [facility] 05/26/24 Alessio Corral APRN.SENIOR PRINCIPAL ARCHITECT [address] [place] [place] [address] [facility] Manager Occupational Relationship Specialty Start Date End Date Humera Lamas MD [address] [place] [place] [address] PCP - General Family Medicine 02/03/21 Pepper Sousa APRN.SENIOR PRINCIPAL ARCHITECT [address] [place] [place] [address] [facility] 05/26/24 Alessio Corral APRN.SENIOR PRINCIPAL ARCHITECT [address] [place] [address] [facility] 06/04/24 Manager Occupational Relationship Specialty Start Date End Date Humera Lamas MD [address] [place] [place] [address] PCP - General [facility] Medicine 02/03/21 Pepper Sousa APRN.SENIOR PRINCIPAL ARCHITECT [address] [place] [address] [facility] 05/26/24 Alessio Corral APRN.SENIOR PRINCIPAL ARCHITECT [address] [place] [address] [facility] 06/04/24 Manager Occupational Relationship Specialty Start Date End Date Humera Lamas MD [address] [place] [address] PCP - [facility] Medicine 02/03/21 Pepper Sousa APRN.SENIOR PRINCIPAL ARCHITECT [address] [place] [address] [facility] 05/26/24 Alessio Corral APRN.SENIOR PRINCIPAL ARCHITECT [address] [place] [address] [facility] 06/04/24 Goals (unrecognized section and content) Goals may be documented in a n alternate section INFORMATION SOURCE (unrecogn ized section and content) DATE CREATED AUTHOR 05/27/2023 [facility] DATE CREATED AUTHOR AUTHOR'S LARA ATADRIAN 08/13/2024 [facility] FOR RECORDS PERTAINING TO PATIENTS WHO ARE OR HAVE BEEN ENROLLED IN A CHEMICAL DEPENDENCY/SUBSTANCEABUSE PROGRAM, SOME INFORMATION MAY BE OMITTED. This clinical summary was aggregated from multiple sources. Caution should be exercised in using it in the provision of clinical care. This summary normalizes information from multiple sources, and as a consequence, information in this document may materially change the coding, format and clinical context of patient data. In addition, data may be omitted in some cases. CLINICAL DECISIONS SHOULD BE BASED ON THE PRIMARY CLINICAL RECORDS. [facility]. provides no warranty or guarantee of the accuracy or completeness of information in this document.
--- OUTSIDE RECORDS SUMMARY | 2024-12-31 21:18 | XMS RPT_ITS | CCD ---
Author Organization [facility] Care Team Providers Care Offset Second Press Operator Name Role Phone Humera Lamas MD Primary Care Provider Humera Lamas Primary Care Unavailable Liane Woody Attending Unavailable Humera Lamas MD Primary Care Provider Humera Lamas MD Primary Care Provider Evelin LESTER MD, Mark Beltre Primary Care Provider Gladys vailable Tannhof LITHOGRAPHIC RETOUCHER APPRENTICE.Pepper PARK Unavailable Ellis LITHOGRAPHIC RETOUCHER APPRENTICE.Alessio PARK Unavailable PEPPER SOUSA Referring Unavailable CYDNEY [...] ELDERBROCK, HUMERA D Primary Care Unavailable Tannhof LITHOGRAPHIC RETOUCHER APPRENTICE.Pepper PARK Unavailable Allergies Allergy Classification Reported Allergen(s) Allergy Type Date of Onset Reaction(s) Facility (20 sources) Sulfonamides (Antibiotic); Translations: [SULFA (SULFONAMIDE ANTIBIOTICS)] Propensity to adverse reactions 5 [facility] Work Phone: (20 sources) Wheat gluten extract; Translations: [GLUTEN] Drug Allergy 5 Upset Stomach [facility] Work Phone: (1 source) Sulfonamides (Antibiotic) Allergy to substance 3 Rash [facility] (1 source) Gluten Drug allergy (disorder) 3 [facility] (1 source) Sulfonamides (Antibiotic) Drug allergy (disorder) 3 [facility] Medications Current Medications Medication Drug Class(es) [...] (20 sources) Patient encounter status; Translations: [Other care home (current) drug therapy] Onset: 6 12-25-2015 [...] current use of drug therapy; Translations: [Other care home (current) drug therapy] Onset: 12-25-2015 12-25-2015 [...] years, Gender: Female SCANNER INFORMATION: DXA Model: [employer] C 52499 Date Scanned: 08/12/2024 11:29 AM CLINICAL HISTORY: [...] FOR MORE INFORMATION ABOUT DIAGNOSIS AND TREATMENT: [facility]oporosis and Metabolic Bone Disease:? www.ccf.org/arthritis /osteo National Osteoporosis Foundation:? www.nof.org International Society of Clinical Densitometry www.iscd.org Marketing Support Assistant: YUSEF Transcribe Date/Time: Aug 12 2024 2:27P Dictated by : CONNER MARTINEZ MD This examination was interpreted and the report reviewed and electronically signed by: CONNER MARTIENZ MD on Aug 12 2024 2:30PM EST [id number] N -3.2 Normal [facility] BD DXA TRABECLR BONE SCORE ( TBS)on [...] years, Gender: Female SCANNER INFORMATION: DXA Model: [employer] C 99052 Date Scanned: 08/12/2024 11:29 AM CLINICAL HISTORY: [...] FOR MORE INFORMATION ABOUT DIAGNOSIS AND TREATMENT: [facility] Metabolic Bone Disease:? www.ccf.org/arthritis /osteo National Osteoporosis Foundation:? www.nof.org International Society of Clinical Densitometry www.iscd.org Marketing Support Assistant: YUSEF Transcribe Date/Time: Aug 12 2024 2:27P Dictated by : CONNER MARTINEZ MD This examination was interpreted and the report reviewed and electronically signed by: CONNER MARTINEZ MD on Aug 12 2024 2:30PM EST [id number] N -3.2 Normal [facility] DXA Femur [T-score] Bone den kera 08-12-2024 * * *Final Report* * * DATE OF EXAM: Aug 12 2024 11:29AM [facility] 0801 - BD DXA TRABECLR BONE SCORE (TBS) / PROCEDURE REASON: Asymptomatic postmenopausal status * * * * Physician Interpretation * * * * EXAMINATION: DXA BONE DENSITOMETRY BD DXA - AXIAL SKELETON, BD DXA TRABECLR BONE SCORE (TBS) PATIENT DEMOGRAPHICS: Age: 74 years, Gender: Female SCANNER INFORMATION: DXA Model: [employer] - [employer] C 38229 Date Scanned: 08/12/2024 11:29 AM CLINICAL HISTORY: [...] or = 1.230) DIVISION OF RADIOLOGY Provider, [facility] - 08/12/2024 * * *Final [...] years, Gender: Female SCANNER INFORMATION: DXA Model: [employer] C 49644 Date Scanned: 08/12/2024 11:29 AM CLINICAL HISTORY: [...] FOR MORE INFORMATION ABOUT DIAGNOSIS AND TREATMENT: [facility] Metabolic Bone Disease:? www.ccf.org/arthritis /osteo National Osteoporosis Foundation:? www.nof.org International Society of Clinical Densitometry www.iscd.org Marketing Support Assistant: YUSEF Transcribe Date/Time: Aug 12 2024 2:27P Dictated by : CONNER MARTINEZ MD This examination was interpreted and the report reviewed and electronically signed by: CONNER MARTINEZ MD on Aug 12 2024 2:30PM EST [facility] DXA Skeletal system.axial Vi ews [...] years, Gender: Female SCANNER INFORMATION: DXA Model: [employer] C 57079 Date Scanned: 08/12/2024 11:29 AM CLINICAL HISTORY: [...] or = 1.230) DIVISION OF RADIOLOGY Provider, [facility] - 08/12/2024 * * *Final Report* * * DATE OF EXAM: Aug 12 2024 11:29AM [facility] 0804 - BD DXA - AXIAL SKELETON / PROCEDURE REASON: Asymptomatic postmenopausal status * * * * Physician Interpretation * * * * EXAMINATION: DXA BONE DENSITOMETRY BD DXA - AXIAL SKELETON, BD DXA TRABECLR BONE SCORE (TBS) PATIENT DEMOGRAPHICS: Age: 74 years, Gender: Female SCANNER INFORMATION: DXA Model: [employer] C 28788 Date Scanned: 08/12/2024 11:29 AM CLINICAL HISTORY: [...] FOR MORE INFORMATION ABOUT DIAGNOSIS AND TREATMENT: [facility] for Osteoporosis and Metabolic Bone Disease:? www.[facility].org/arthritis /osteo National Osteoporosis Foundation:? www.nof.org International Society of Clinical Densitometry www.iscd.org Marketing Support Assistant: YUSEF Transcribe Date/Time: Aug 12 2024 2:27P Dictated by : CONNER MARTINEZ MD This examination was interpreted and the report reviewed and electronically signed by: CONNER MARTINEZ MD on Aug 12 2024 2:30PM [facility] No Panel InformationOrdered By: [facility] Provider on 08-12-2024 LOWEST T-SCORE -3.2 [facility] No Panel Informationon 08-12 IMPRESSION: THE LOWEST [...] FOR MORE INFORMATION ABOUT DIAGNOSIS AND TREATMENT: [facility] for [facility]oporosis and Metabolic Bone Disease:? www.[facility].org/arthritis /osteo National Osteoporosis Foundation:? www.nof.org International Society of Clinical Densitometry www.iscd.org Marketing Support Assistant: YUSEF Transcribe Date/Time: Aug 12 2024 2:27P Dictated by : CONNER MARTINEZ MD This examination was interpreted and the report reviewed and electronically signed by: CONNER MARTINEZ MD on Aug 12 2024 2:30PM [facility] DIVISION OF RADIOLOGY Radiology Study observation (narrative) Ling sena [facility] Lindy 06-27-2024 CRISTIAN Telephone (FAMPWS) CALISTA CANNON ([id number]) 1950 F Date Time Provider Department 06/27/24 PEPPER SOUSA [facility]ANN[facility] During your visit today, we recorded the [...] went over results, notes from Pepper Sousa COLOR LABORATORY TECHNICIAN with understanding. Patient is willing to do [...] MA 07/01/2024 12:41 PM Signed Notified via [email or web address] that test has been ordered and she can call in to schedule. Elin James MA Allergies As of Date: 06/27/2024 Noted Allergy Reaction GLUTEN 04/19/2005 SULFA (SULFONAMIDE ANTIBIOTICS) 04/18/2005 Date Reviewed: 06/24/2024 Reviewed by: Amirah Gutiérrez LPN - Fully Assessed Reason for Visit: Results [95] Cmt: Lumbar xray Primary Visit Diagnosis:Asymptomati c postmenopausal status [Z78.0] Order(s):DXA-AXIAL SKELETON [[id number]] Order #: [id number] FUTURE BD DXA TRABECULAR BONE SCORE (TBS) [[id number]] Order #: [id number] FUTURE Prescriptions as of 07/01/2024 - colestipol [...] disease [N (more content not included)... Normal [facility] CNOVon 06-24-2024 CNOV Office Visit (FAMPWS ) CALISTA CANNON ([id number]) 1950 F Date Time Provider Department 06/24/24 11:00 AM PEPPER SOUSA [facility] During your visit today, we recorded the following information about you: Pulse Respiration Blood pressure Weight 78/minute 16/minute 106/66 62.1 kg Pepper Sousa APRN.FORENSIC ANALYST 06/24/2024 1:06 PM Signed This is a 74 year old female who presents today with: Patient presents with: 6 Month Exam HISTORY OF PRESENT ILLNESS: Calista Cannon is a 74 year old female. Patient presents with: 6 Month Exam 6 month follow up On going back pain: Seems to come and go. 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 Pain is [...] and Flexeril prn. Has previously seen with [facility]. Has been told in the past [...] suicidal ideation. (more content not included)... Normal [facility] XR LUMBAR 3V AP/LAT/L5-S1on 06-24-2024 XR LUMBAR [...] L1 has developed since the prior study Marketing Support Assistant: YUSEF Transcribe Date/Time: Jun 27 2024 11:31A Dictated by : RADHIKA PA MD This examination was interpreted and the report reviewed and electronically signed by: RADHIKA PA MD on Jun 27 2024 11:33AM EST [id number] N Normal [facility] 25(OH)D3 SerPl-mCncon 2024 25-hydroxyvitamin D3 [Mass/Vol] 71.5 ng/mL Normal 31.0-80.0 [facility] Comment on above: Order Comment: Speci men Type: BLOOD SPECIMEN Ordering Facility: [facility] Address: [address] [place] [address] Result Comment: Clas sification of 25 [place] Vitamin D status: Deficiency/Insufficiency: < or = 30 ng/ml. Sufficiency/Optimal Levels: 31-80 ng/mL Toxicity: > 100 ng/mL. Test performed by chemiluminescent immunoassay. Performed By: #### 1 989-3 #### [facility] CLIA [id number] [address] [place] [address] [place] CBC W Auto Differential pane l (Bld)on 06-20-2024 Basophils (Bld) [#/Vol] 0.04 10*3/uL Normal <0.11 [facility] Comment on above: Order Comment: Speci men Type: BLOOD SPECIMEN Ordering Facility: [facility] Address: [address] [place] [address] Performed By: #### 5 7021-8 #### [facility] CLIA [id number] [address] [place] [address] [place] Basophils/100 WBC (Bld) 1.0 % Normal [facility] Comment on above: Order Comment: Speci men Type: BLOOD SPECIMEN Ordering Facility: [facility] Address: [address] [place] [address] Performed By: #### 5 7021-8 #### [facility] CLIA [id number] [address] [place] [address] [place] Differential cell count method Nom (Bld) Auto Normal [facility] Comment on above: Order Comment: Speci men Type: BLOOD SPECIMEN Ordering Facility: [facility] Address: [address] [place] [address] Performed By: #### 5 7021-8 #### [facility] CLIA [id number] [address] [place] [address] [place] Eosinophils (Bld) [#/Vol] 0.06 10*3/uL Normal <0.46 [facility] Comment on above: Order Comment: Speci men Type: BLOOD SPECIMEN Ordering Facility: [facility] Address: [address] [place] [address] Performed By: #### 5 7021-8 #### [facility] CLIA [id number] [address] [place] [address] [place] Eosinophils/100 WBC (Bld) 1.5 % Normal [facility] Comment on above: Order Comment: Speci men Type: BLOOD SPECIMEN Ordering Facility: [facility] Address: [address] [place] [address] Performed By: #### 5 7021-8 #### [facility] CLIA [id number] [address] [place] [address] [place] Erythrocyte distribution width (RBC) [Ratio] 13.2 % Normal 11.5-15.0 [facility] Comment on above: Order Comment: Speci men Type: BLOOD SPECIMEN Ordering Facility: [facility] Address: [address] [place] [address] Performed By: #### 5 7021-8 #### [facility] CLIA [id number] [address] [place] [address] [place] Hematocrit (Bld) [Volume fraction] 40.7 % Normal 36.0-46.0 [facility] Comment on above: Order Comment: Speci men Type: BLOOD SPECIMEN Ordering Facility: [facility] Address: [address] [place] [address] Performed By: #### 5 7021-8 #### [facility] CLIA [id number] [address] [place], [place] [address] [place] Hemoglobin (Bld) [Mass/Vol] 13.1 g/dL Normal 11.5-15.5 [facility] Comment on above: Order Comment: Speci men Type: BLOOD SPECIMEN Ordering Facility: [facility] Address: [address] [place] [address] Performed By: #### 5 7021-8 #### [facility] CLIA [id number] [address] [place] [address] [place] Immature granulocytes (Bld) [#/Vol] 10*3/uL Normal <0.10 [facility] Comment on above: Order Comment: Speci men Type: BLOOD SPECIMEN Ordering Facility: [facility] Address: [address] [place] [address] Performed By: #### 5 7021-8 #### [facility] CLIA [id number] [address] [place] [address] [place] Immature granulocytes/100 WBC (Bld) 0.2 % Normal [facility] Comment on above: Order Comment: Speci men Type: BLOOD SPECIMEN Ordering Facility: [facility] Address: [address] [place] [address] Performed By: #### 5 7021-8 #### [facility] CLIA [id number] [address] [place] [address] [place] Lymphocytes (Bld) [#/Vol] 0.96 10*3/uL Low 1.00-4.00 [facility] Comment on above: Order Comment: Speci men Type: BLOOD SPECIMEN Ordering Facility: [facility] Address: [address] [place] [address] Performed By: #### 5 7021-8 #### [facility] CLIA [id number] [address] [place] [address] [place] Lymphocytes/100 WBC (Bld) 23.7 % Normal [facility] Comment on above: Order Comment: Speci men Type: BLOOD SPECIMEN Ordering Facility: [facility] Address: [address] [place] [address] Performed By: #### 5 7021-8 #### [facility] CLIA [id number] [address] [place] [address] [place] MCH (RBC) [Entitic mass] 30.8 pg Normal 26.0-34.0 [facility] Comment on above: Order Comment: Speci men Type: BLOOD SPECIMEN Ordering Facility: [facility] Address: [address] [place] [address] Performed By: #### 5 7021-8 #### [facility] CLIA [id number] [address] [place] [address] [place] MCHC (RBC) [Mass/Vol] 32.2 g/dL Normal 30.5-36.0 [facility] Comment on above: Order Comment: Speci men Type: BLOOD SPECIMEN Ordering Facility: [facility] Address: [address] [place] [address] Performed By: #### 5 7021-8 #### [facility] CLIA [id number] [address] [place] [address] [place] MCV (RBC) [Entitic vol] 95.5 fL Normal 80.0-100.0 C [facility] Comment on above: Order Comment: Speci men Type: BLOOD SPECIMEN Ordering Facility: [facility] Address: [address] [place] [address] Performed By: #### 5 7021-8 #### [facility] CLIA [id number] [address] [place] [address] [place] Monocytes (Bld) [#/Vol] 0.39 10*3/uL Normal <0.87 [facility] Comment on above: Order Comment: Speci men Type: BLOOD SPECIMEN Ordering Facility: [facility] Address: [address] [place] [address] Performed By: #### 5 7021-8 #### [facility] CLIA [id number] [address] [place] [address] [place] Monocytes/100 WBC (Bld) 9.6 % Normal [facility] Comment on above: Order Comment: Speci men Type: BLOOD SPECIMEN Ordering Facility: [facility] Address: [address] [place] [address] Performed By: #### 5 7021-8 #### [facility] CLIA [id number] [address] [place] [address] [place] Neutrophils (Bld) [#/Vol] 2.59 10*3/uL Normal 1.45-7.50 [facility] Comment on above: Order Comment: Speci men Type: BLOOD SPECIMEN Ordering Facility: [facility] Address: [address] [place] [address] Performed By: #### 5 7021-8 #### [facility] CLIA [id number] [address] [place] [address] [place] Neutrophils/100 WBC (Bld) 64.0 % Normal [facility] Comment on above: Order Comment: Speci men Type: BLOOD SPECIMEN Ordering Facility: [facility] Address: [address] [place] [address] Performed By: #### 5 7021-8 #### [facility] CLIA [id number] [address] [place] [address] [place] Nucleated RBC (Bld) [#/Vol] 10*3/uL Normal <0.01 [facility] Comment on above: Order Comment: Speci men Type: BLOOD SPECIMEN Ordering Facility: [facility] Address: [address] [place] [address] Performed By: #### 5 7021-8 #### [facility] CLIA [id number] [address] [place] [address] [place] Nucleated RBC/100 WBC (Bld) [Ratio] 0.0 /100 WBC Normal [facility] Comment on above: Order Comment: Speci men Type: BLOOD SPECIMEN Ordering Facility: [facility] Address: [address] [place] [address] Performed By: #### 5 7021-8 #### [facility] CLIA [id number] [address] [place] [address] [place] Platelet mean volume (Bld) [Entitic vol] 10.3 fL Normal 9.0-12.7 [facility] Comment on above: Order Comment: Speci men Type: BLOOD SPECIMEN Ordering Facility: [facility] Address: [address] [place] [address] Performed By: #### 5 7021-8 #### [facility] CLIA [id number] [address] [place] [address] [place] Platelets (Bld) [#/Vol] 326 10*3/uL Normal 150-400 [facility] Comment on above: Order Comment: Speci men Type: BLOOD SPECIMEN Ordering Facility: [facility] Address: [address] [place] [address] Performed By: #### 5 7021-8 #### [facility] CLIA [id number] [address] [place] [address] [place] RBC (Bld) [#/Vol] 4.26 10*6/uL Normal 3.90-5.20 [facility] Comment on above: Order Comment: Speci men Type: BLOOD SPECIMEN Ordering Facility: [facility] Address: [address] [place] [address] Performed By: #### 5 7021-8 #### [facility] CLIA [id number] [address] [place] [address] [place] WBC (Bld) [#/Vol] 4.05 10*3/uL Normal 3.70-11.00 [facility] Comment on above: Order Comment: Speci men Type: BLOOD SPECIMEN Ordering Facility: [facility] Address: [address] [place] [address] Performed By: #### 5 7021-8 #### [facility] CLIA [id number] [address] [place] [address] [place] Comprehensive metabolic 2000 panelon 06-20-2024 Albumin [Mass/Vol] 3.8 g/dL Low 3.9-4.9 [facility] Comment on above: Order Comment: Speci men Type: BLOOD SPECIMEN Ordering Facility: [facility] Address: [address] [place] [address] Performed By: #### 3 016-3, 91858-8, 35846-3, 97616-7 #### [facility] CLIA [id number] [address] [place] [address] [place] ALP [Catalytic activity/Vol] 59 U/L Normal 34-123 [facility] Comment on above: Order Comment: Speci men Type: BLOOD SPECIMEN Ordering Facility: [facility] Address: [address] [place] [address] Performed By: #### 3 016-3, 18233-3, 58625-0, 16853-6 #### [facility] CLIA [id number] [address] [place] [address] [place] ALT [Catalytic activity/Vol] 17 U/L Normal 7-38 [facility] Comment on above: Order Comment: Speci men Type: BLOOD SPECIMEN Ordering Facility: [facility] Address: [address] [place] [address] Performed By: #### 3 016-3, 81306-0, 48281-0, 75228-6 #### [facility] CLIA [id number] [address] [place] [address] [place] Anion gap [Moles/Vol] 12 mmol/L Normal 8-15 [facility] Comment on above: Order Comment: Speci men Type: BLOOD SPECIMEN Ordering Facility: [facility] Address: [address] [place] [address] Performed By: #### 3 016-3, 08860-8, 29476-9, 66591-6 #### [facility] CLIA [id number] [address] [place] [address] [place] AST [Catalytic activity/Vol] 21 U/L Normal 13-35 [facility] Comment on above: Order Comment: Speci men Type: BLOOD SPECIMEN Ordering Facility: [facility] Address: [address] [place] [address] Performed By: #### 3 016-3, 18876-0, 45400-7, 73277-3 #### [facility] CLIA [id number] [address] [place] [address] [place] Bilirubin [Mass/Vol] 0.3 mg/dL Normal 0.2-1.3 [facility] Comment on above: Order Comment: Speci men Type: BLOOD SPECIMEN Ordering Facility: [facility] Address: [address] [place] [address] Performed By: #### 3 016-3, 15543-4, 25201-4, 92067-2 #### [facility] CLIA [id number] [address] [place] [address] [place] Calcium [Mass/Vol] 8.9 mg/dL Normal 8.5-10.2 [facility] Comment on above: Order Comment: Speci men Type: BLOOD SPECIMEN Ordering Facility: [facility] Address: [address] [place] [address] Performed By: #### 3 016-3, 82628-4, 77690-0, 98043-9 #### [facility] CLIA [id number] [address] [place] [address] [place] Chloride [Moles/Vol] 107 mmol/L Normal 98-107 [facility] Comment on above: Order Comment: Speci men Type: BLOOD SPECIMEN Ordering Facility: [facility] Address: [address] [place] [address] Performed By: #### 3 016-3, 53161-9, 34010-3, 11002-7 #### [facility] CLIA [id number] [address] [place] [address] [place] CO2 [Moles/Vol] 23 mmol/L Normal 22-30 [facility] Comment on above: Order Comment: Speci men Type: BLOOD SPECIMEN Ordering Facility: [facility] Address: [address] [place] [address] Performed By: #### 3 016-3, 50003-6, 86119-0, 59374-6 #### [facility] CLIA [id number] [address] [place] [address] [place] Creatinine [Mass/Vol] 0.57 mg/dL Low 0.58-0.96 [facility] Comment on above: Order Comment: Speci men Type: BLOOD SPECIMEN Ordering Facility: [facility] Address: [address] [place] [address] Performed By: #### 3 016-3, 06172-3, , #### [facility] CLIA [id number] [address] [place] [address] [place] Creatinine and Glomerular filtration rate.predicted panel (S/P/Bld) 96 mL/min/1.73m??? Normal >=60 [facility] Comment on above: Order Comment: Speci men Type: BLOOD SPECIMEN Ordering Facility: [facility] Address: [address] [place] [address] Result Comment: Heydi mated Glomerular Filtration Rate [...] actual GFR. Performed By: #### 3 016-3, 34557-0, 98143-4, 49602-3 #### [facility] CLIA [id number] [address] [place] [address] [place] Glucose [Mass/Vol] 77 mg/dL Normal 74-99 [facility] Comment on above: Order Comment: Margie aguirre Type: BLOOD SPECIMEN Ordering Facility: [facility] Address: [address] [place] [address] Result Comment: The [place] [employer] (ADA) provides guidance for cutoff [...] Standards of Medical Care in Diabetes 2016, [place] [employer]. Diabetes Care. 2016.39(Suppl 1). Performed By: #### 3 016-3, 13150-3, 20660-4, 96117-7 #### [facility] CLIA [id number] [address] [place] [address] [place] Potassium [Moles/Vol] 3.8 mmol/L Normal 3.7-5.1 [facility] Comment on above: Order Comment: Margie aguirre Type: BLOOD SPECIMEN Ordering Facility: [facility] Address: [address] [place] [address] Performed By: #### 3 016-3, 49696-7, 35989-7, 56467-7 #### [facility] CLIA [id number] [address] [place] [address] [place] Protein [Mass/Vol] 6.7 g/dL Normal 6.3-8.0 [facility] Comment on above: Order Comment: Margie aguirre Type: BLOOD SPECIMEN Ordering Facility: [facility] Address: [address] [place] [address] Performed By: #### 3 016-3, 50586-3, 51268-1, 84552-9 #### [facility] CLIA [id number] [address] [place] [address] [place] Sodium [Moles/Vol] 142 mmol/L Normal 136-144 [facility] Comment on above: Order Comment: Speci men Type: BLOOD SPECIMEN Ordering Facility: [facility] Address: [address] [place] [address] Performed By: #### 3 016-3, 56888-6, 14054-5, 17165-0 #### [facility] CLIA [id number] [address] [place] [address] [place] Urea nitrogen [Mass/Vol] 15 mg/dL Normal 7-21 [facility] Comment on above: Order Comment: Speci men Type: BLOOD SPECIMEN Ordering Facility: [facility] Address: [address] [place] [address] Performed By: #### 3 016-3, 78046-4, 44486-4, 98303-7 #### [facility] CLIA [id number] [address] [place] [address] [place] Iron and Iron binding capaci ty panelon 06-20-2024 Iron [Mass/Vol] 71 ug/dL Normal 41-186 [facility] Comment on above: Order Comment: Speci men Type: BLOOD SPECIMEN Ordering Facility: [facility] Address: [address] [place] [address] Performed By: #### 3 016-3, 37430-9, 69424-2, 90675-7 #### [facility] CLIA [id number] [address] [place] [address] [place] Iron binding capacity [Mass/Vol] 340 ug/dL Normal 232-386 [facility] Comment on above: Order Comment: Speci men Type: BLOOD SPECIMEN Ordering Facility: [facility] Address: [address] [place] [address] Performed By: #### 3 016-3, 32551-3, 93890-5, 86347-3 #### [facility] CLIA [id number] [address] [place] [address] [place] Iron/TIBC [Molar ratio] 20.9 % Normal 15.0-57.0 C [facility] Comment on above: Order Comment: Speci men Type: BLOOD SPECIMEN Ordering Facility: [facility] Address: [address] [place] [address] Performed By: #### 3 016-3, 45951-2, 08577-2, 66211-6 #### [facility] CLIA [id number] [address] [place] [address] [place] Lipid 1996 panelon 5 Cholesterol [Mass/Vol] 231 mg/dL High <200 [facility] Comment on above: Order Comment: Speci men Type: BLOOD SPECIMEN Ordering Facility: [facility] Address: [address] [place] [address] Result Comment: <200 mg/dL, Desirable 200-239 mg/dL, Borderline high >239 mg/dL, High Performed By: #### 3 016-3, 51240-3, 61965-1, 12317-2 #### [facility] CLIA [id number] [address] [place] [address] [place] Cholesterol in HDL [Mass/Vol] 82 mg/dL Normal >39 [facility] Comment on above: Order Comment: Speci men Type: BLOOD SPECIMEN Ordering Facility: [facility] Address: [address] [place] [address] Result Comment: 40-5 9 mg/dL, Acceptable >59 mg/dL, High: Negative risk factor for coronary heart disease <40 mg/dL, Low: Positive risk factor for coronary heart disease Performed By: #### 3 016-3, 85938-4, 08175-5, 75969-0 #### [facility] CLIA [id number] [address] [place] [address] [place] Cholesterol in LDL [Mass/Vol] 134 mg/dL High <100 [facility] Comment on above: Order Comment: Margie aguirre Type: BLOOD SPECIMEN Ordering Facility: [facility] Address: [address] [place] [address] Result Comment: <100 mg/dL, Optimal 100-129 mg/dL, Near optimal/above optimal 130-159 mg/dL, Borderline high 160-189 mg/dL, High >189 mg/dL, Very high Secondary prevention optimal LDL Cholesterol levels are recommended to be < 70 mg/dL Performed By: #### 3 016-3, 24927-0, 84182-6, 89461-2 #### [facility] CLIA [id number] [address] [place] [address] [place] Cholesterol in LDL/Cholesterol in HDL [Mass ratio] 1.63 {ratio} Normal <2.54 [facility] Comment on above: Order Comment: Margie aguirre Type: BLOOD SPECIMEN Ordering Facility: [facility] Address: [address] [place] [address] Result Comment: Refe duyce: 1. National Cholesterol Education Program ATP III Guideline At-A-Glance Quick Desk Reference: National Heart, Lung, and Blood [place]. National Institutes of Health. 2001: NIH Publication No. 01-3305. 2. An International Atherosclerosis Society position paper: global recommendations for the management of dyslipidemia: executive summary, Atherosclerosis. 2014: 232(2):410-413. Performed By: #### 3 016-3, 56487-9, 37566-4, 33928-9 #### [facility] CLIA [id number] [address] [place] [address] [place] Cholesterol in VLDL [Mass/Vol] 15 mg/dL Normal <30 [facility] Comment on above: Order Comment: Margie aguirre Type: BLOOD SPECIMEN Ordering Facility: [facility] Address: [address] [place] [address] Performed By: #### 3 016-3, 10817-8, 85829-6, 29987-5 #### [facility] CLIA [id number] [address] [place] [address] [place] Cholesterol non HDL [Mass/Vol] 149 mg/dL High <130 [facility] Comment on above: Order Comment: Speci men Type: BLOOD SPECIMEN Ordering Facility: [facility] Address: [address] [place] [address] Result Comment: <130 mg/dL, Optimal 130-159 mg/dL, Near optimal/above optimal 160-189 mg/dL, Borderline high 190-219 mg/dL, High >219 mg/dL, Very high Secondary prevention optimal non HDL Cholesterol levels are recommended to be <100 mg/dL Performed By: #### 3 016-3, 83310-0, 68906-4, 69771-1 #### [facility] CLIA [id number] [address] [place] [address] [place] Cholesterol.total/Sindi sterol in HDL [Mass ratio] 2.82 {ratio} Normal <5.10 [facility] Comment on above: Order Comment: Speci men Type: BLOOD SPECIMEN Ordering Facility: [facility] Address: [address] [place] [address] Performed By: #### 3 016-3, 85160-7, 48102-2, 91930-8 #### [facility] CLIA [id number] [address] [place] [address] [place] FASTING TIME 12 hrs Normal [facility] Comment on above: Order Comment: Speci men Type: BLOOD SPECIMEN Ordering Facility: [facility] Address: [address] [place] [address] Performed By: #### 3 016-3, 44195-9, 78440-4, 28104-2 #### [facility] CLIA [id number] [address] [place] [address] [place] Triglyceride [Mass/Vol] 76 mg/dL Normal <150 [facility] Comment on above: Order Comment: Speci men Type: BLOOD SPECIMEN Ordering Facility: [facility] Address: [address] [place] [address] Result Comment: <150 mg/dL, Normal 150-199 mg/dL, Borderline high 200-499 mg/dL, High >499 mg/dL, Very high Performed By: #### 3 016-3, 81238-7, 97412-4, 01939-5 #### [facility] CLIA [id number] [address] [place] [address] [place] TSH SerPl-aCncon 06-20-2024 TSH Qn 3.740 m[IU]/L Normal 0.270-4.200 [facility] Comment on above: Order Comment: Speci men Type: BLOOD SPECIMEN Ordering Facility: [facility] Address: [address] [place] [address] Performed By: #### 3 016-3, 80053-1, 67148-4, 33384-0 #### [facility] CLIA [id number] [address] [place] [address] OF [place] Lindy 04-01-2024 [facility] CALISTA CANNON ([id number]) 1950 F Date Time Provider Department 04/01/24 [facility] During your visit today, we recorded the [...] Status:Closed by Pérez ELLISON on 04/01/24 Normal [facility] CHIN SCREENING W TOMOon 03-27 CHIN SCREENING W HEIDI * * *Final Report* * * DATE OF EXAM: Mar 27 2024 10:37AM [facility] 0582 - CHIN SCREENING W HEIDI / PROCEDURE REASON: Encounter for screening mammogram for malignant neoplasm of breast * * * * Physician Interpretation * * * * RESULT: [place] [address] HISTORY: Patient is 74 years old and [...] Adithya Lei M.D. Electronically signed on: 03/30/2024 Marketing Support Assistant: DYLLAN Transcribe Date/Time: Mar 27 2024 10:03A Dictated by: ADITHYA LEI MD This examination was interpreted and the report reviewed and electronically signed by: ADITHYA LEI MD on Mar 30 2024 2:13PM EST [id number] Normal [facility] CNOVon 12-01-2023 CNOV Office Visit ([facility] CALISTA CANNON ([id number]) 1950 F Date Time Provider Department 12/01/23 11:00 AM [facility] During your visit today, we recorded the following information about you: Pulse Respiration Blood pressure Weight 84/minute 16/minute 110/68 70.3 kg Pepper Sousa 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 Has not had any other episodes. Chronic [...] and Flexeril prn. Has previously seen with [facility], but not in quite some time. [...] MOOD: N (more content not included)... Normal [facility] ECG COMPLETEon 12-01-2023 Atrial Rate 77 BPM [facility] Calculated P [place] [address] [facility] Calculated R [place] [address] [facility] Calculated T [place] [address] [facility] P-R Interval 118 ms [facility] QRS Duration 86 ms [facility] QT Interval 406 ms [facility] QTC Calculation (Bazett) 459 ms [facility] Ventricular Rate 77 BPM [facility] NORMAL SINUS RHYTHM NORMAL ECG Confirmed by JOSUÉ ALDANA M.D. ([id number]) on 12/01/2023 4:11:07 PM [facility] NAME : CALISTA CANNON PID : [id number] : 1950 Gender : Female Race : ORD : [id number] Procedure Date : Dec 01 2023 11:15:12 Edit Date : Dec 01 2023 16:11:10 Diagnosis: NORMAL SINUS RHYTHM NORMAL ECG Confirmed by JOSUÉ ALDANA M.D. ([id number]) on 12/01/2023 4:11:07 PM Test Reason : R07.89 Other chest pain Location : 185 : [facility] Overread By : JOSUÉ ALDANA M.D. Edited By : JOSUÉ ALDANA M.D. Referred By : PEPPER SOUSA Acquired by : MARSHA, [facility] ECG COMPLETE Ventricular Rate : 7 7 BPM Atrial Rate : 77 BPM P-R Interval : 118 ms QRS Duration : 86 ms Q-T Interval : 406 ms QTC Calculation(Bazett) : 459 ms Calculated P [place] : 32 degrees Calculated R [place] : 2 degrees Calculated T [place] : 46 degrees NORMAL SINUS RHYTHM NORMAL ECG Confirmed by JOSUÉ ALDANA M.D. ([id number]) on 12/01/2023 4:11:07 PM NAME : CALISTA CANNON PID : [id number] : 1950 Gender : Female Race : ORD : [id number] Procedure Date : Dec 01 2023 11:15:12 [...] PEPPER SOUSA Acquired by : Gopal LARSON [facility] CBC W Auto Differential pane l (Bld)on 11-22-2023 Basophils (Bld) [#/Vol] 0.04 10*3/uL Normal <0.11 [facility] Comment on above: Order Comment: Speci men Type: BLOOD SPECIMEN Ordering Facility: [facility] Address: [address] [place] [address] Performed By: #### 3 016-3, 66952-2, 25764-3, 96498-1 #### [facility] CLIA [id number] [address] [place] [address] [place] Basophils/100 WBC (Bld) 0.8 % Normal [facility] Comment on above: Order Comment: Speci men Type: BLOOD SPECIMEN Ordering Facility: [facility] Address: [address] [place] [address] Performed By: #### 3 016-3, 44176-5, 59831-7, 68575-8 #### [facility] CLIA [id number] [address] [place] [address] [place] Differential cell count method Nom (Bld) Auto Normal [facility] Comment on above: Order Comment: Speci men Type: BLOOD SPECIMEN Ordering Facility: [facility] Address: [address] [place] [address] Performed By: #### 3 016-3, 45465-6, 39607-7, 75082-2 #### [facility] CLIA [id number] [address] [place] [address] [place] Eosinophils (Bld) [#/Vol] 0.07 10*3/uL Normal <0.46 [facility] Comment on above: Order Comment: Speci men Type: BLOOD SPECIMEN Ordering Facility: [facility] Address: [address] [place] [address] Performed By: #### 3 016-3, 83636-1, 67311-6, 47271-7 #### [facility] CLIA [id number] [address] [place] [address] [place] Eosinophils/100 WBC (Bld) 1.5 % Normal [facility] Comment on above: Order Comment: Speci men Type: BLOOD SPECIMEN Ordering Facility: [facility] Address: [address] [place] [address] Performed By: #### 3 016-3, 49154-6, 04176-5, 25029-3 #### [facility] CLIA [id number] [address] [place] [address] [place] Erythrocyte distribution width (RBC) [Ratio] 14.1 % Normal 11.5-15.0 [facility] Comment on above: Order Comment: Speci men Type: BLOOD SPECIMEN Ordering Facility: [facility] Address: [address] [place] [address] Performed By: #### 3 016-3, 53635-8, 08556-7, 10651-9 #### [facility] CLIA [id number] [address] [place] [address] [place] Hematocrit (Bld) [Volume fraction] 40.1 % Normal 36.0-46.0 [facility] Comment on above: Order Comment: Speci men Type: BLOOD SPECIMEN Ordering Facility: [facility] Address: [address] [place] [address] Performed By: #### 3 016-3, 66154-2, 24222-3, 33064-9 #### [facility] CLIA [id number] [address] [place] [address] [place] Hemoglobin (Bld) [Mass/Vol] 12.6 g/dL Normal 11.5-15.5 [facility] Comment on above: Order Comment: Speci men Type: BLOOD SPECIMEN Ordering Facility: [facility] Address: [address] [place] [address] Performed By: #### 3 016-3, 80720-0, 89917-0, 37659-7 #### [facility] CLIA [id number] [address] [place] [address] [place] Immature granulocytes (Bld) [#/Vol] 10*3/uL Normal <0.10 [facility] Comment on above: Order Comment: Speci men Type: BLOOD SPECIMEN Ordering Facility: [facility] Address: [address] [place] [address] Performed By: #### 3 016-3, 32550-9, 59076-1, 42158-0 #### [facility] CLIA [id number] [address] [place] [address] [place] Immature granulocytes/100 WBC (Bld) 0.4 % Normal [facility] Comment on above: Order Comment: Speci men Type: BLOOD SPECIMEN Ordering Facility: [facility] Address: [address] [place] [address] Performed By: #### 3 016-3, 56611-2, 76791-6, 75916-0 #### [facility] CLIA [id number] [address] [place] [address] [place] Lymphocytes (Bld) [#/Vol] 1.30 10*3/uL Normal 1.00-4.00 [facility] Comment on above: Order Comment: Speci men Type: BLOOD SPECIMEN Ordering Facility: [facility] Address: [address] [place] [address] Performed By: #### 3 016-3, 50688-5, 56130-7, 83195-4 #### [facility] CLIA [id number] [address] [place] [address] [place] Lymphocytes/100 WBC (Bld) 27.0 % Normal [facility] Comment on above: Order Comment: Speci men Type: BLOOD SPECIMEN Ordering Facility: [facility] Address: [address] [place] [address] Performed By: #### 3 016-3, 59367-0, 77422-9, 40845-7 #### [facility] CLIA [id number] [address] [place] [address] [place] MCH (RBC) [Entitic mass] 30.1 pg Normal 26.0-34.0 [facility] Comment on above: Order Comment: Speci men Type: BLOOD SPECIMEN Ordering Facility: [facility] Address: [address] [place] [address] Performed By: #### 3 016-3, 29661-8, 43166-8, 70029-3 #### [facility] CLIA [id number] [address] [place] [address] [place] MCHC (RBC) [Mass/Vol] 31.4 g/dL Normal 30.5-36.0 [facility] Comment on above: Order Comment: Speci men Type: BLOOD SPECIMEN Ordering Facility: [facility] Address: [address] [place] [address] Performed By: #### 3 016-3, 70158-7, 32761-1, 92315-6 #### [facility] CLIA [id number] [address] [place] [address] [place] MCV (RBC) [Entitic vol] 95.7 fL Normal 80.0-100.0 C [facility] Comment on above: Order Comment: Speci men Type: BLOOD SPECIMEN Ordering Facility: [facility] Address: [address] [place] [address] Performed By: #### 3 016-3, 57834-8, 24733-9, 67880-3 #### [facility] CLIA [id number] [address] [place] [address] [place] Monocytes (Bld) [#/Vol] 0.47 10*3/uL Normal <0.87 [facility] Comment on above: Order Comment: Speci men Type: BLOOD SPECIMEN Ordering Facility: [facility] Address: [address] [place] [address] Performed By: #### 3 016-3, 91913-3, 51204-1, 69416-3 #### [facility] CLIA [id number] [address] [place] [address] [place] Monocytes/100 WBC (Bld) 9.8 % Normal C [facility] Comment on above: Order Comment: Speci men Type: BLOOD SPECIMEN Ordering Facility: [facility] Address: [address] [place] [address] Performed By: #### 3 016-3, 28138-1, 23123-3, 29498-3 #### [facility] CLIA [id number] [address] [place] [address] [place] Neutrophils (Bld) [#/Vol] 2.92 10*3/uL Normal 1.45-7.50 [facility] Comment on above: Order Comment: Speci men Type: BLOOD SPECIMEN Ordering Facility: [facility] Address: [address] [place] [address] Performed By: #### 3 016-3, 71019-4, 15430-3, 91340-4 #### [facility] CLIA [id number] [address] [place] [address] [place] Neutrophils/100 WBC (Bld) 60.5 % Normal [facility] Comment on above: Order Comment: Speci men Type: BLOOD SPECIMEN Ordering Facility: [facility] Address: [address] [place] [address] Performed By: #### 3 016-3, 19794-9, 53744-0, 43553-6 #### [facility] CLIA [id number] [address] [place] [address] [place] Nucleated RBC (Bld) [#/Vol] 10*3/uL Normal <0.01 [facility] Comment on above: Order Comment: Speci men Type: BLOOD SPECIMEN Ordering Facility: [facility] Address: [address] [place] [address] Performed By: #### 3 016-3, 24587-6, 42071-4, 20493-4 #### [facility] CLIA [id number] [address] [place] [address] [place] Nucleated RBC/100 WBC (Bld) [Ratio] 0.0 /100 WBC Normal [facility] Comment on above: Order Comment: Speci men Type: BLOOD SPECIMEN Ordering Facility: [facility] Address: [address] [place] [address] Performed By: #### 3 016-3, 19661-4, 33968-0, 73403-8 #### [facility] CLIA [id number] [address] [place] [address] [place] Platelet mean volume (Bld) [Entitic vol] 9.8 fL Normal 9.0-12.7 [facility] Comment on above: Order Comment: Speci men Type: BLOOD SPECIMEN Ordering Facility: [facility] Address: [address] [place] [address] Performed By: #### 3 016-3, 04218-0, 20405-7, 35582-1 #### [facility] CLIA [id number] [address] [place] [address] [place] Platelets (Bld) [#/Vol] 308 10*3/uL Normal 150-400 [facility] Comment on above: Order Comment: Speci men Type: BLOOD SPECIMEN Ordering Facility: [facility] Address: [address] [place] [address] Performed By: #### 3 016-3, 07261-8, 09802-2, 28038-7 #### [facility] CLIA [id number] [address] [place] [address] [place] RBC (Bld) [#/Vol] 4.19 10*6/uL Normal 3.90-5.20 [facility] Comment on above: Order Comment: Speci men Type: BLOOD SPECIMEN Ordering Facility: [facility] Address: [address] [place] [address] Performed By: #### 3 016-3, 91926-2, 94125-6, 33807-5 #### [facility] CLIA [id number] [address] [place] [address] [place] WBC (Bld) [#/Vol] 4.82 10*3/uL Normal 3.70-11.00 [facility] Comment on above: Order Comment: Speci men Type: BLOOD SPECIMEN Ordering Facility: [facility] Address: [address] [place] [address] Performed By: #### 3 016-3, 68614-0, 23475-4, 14961-9 #### [facility] CLIA [id number] [address] [place] [address] [place] Comprehensive metabolic 2000 panelon 11-22-2023 Albumin [Mass/Vol] 4.0 g/dL Normal 3.9-4.9 [facility] Comment on above: Order Comment: Speci men Type: BLOOD SPECIMEN Ordering Facility: [facility] Address: [address] [place] [address] Performed By: #### 3 016-3, 47009-2, 60772-5, 87912-4 #### [facility] CLIA [id number] [address] [place] [address] [place] ALP [Catalytic activity/Vol] 53 U/L Normal 34-123 [facility] Comment on above: Order Comment: Speci men Type: BLOOD SPECIMEN Ordering Facility: [facility] Address: [address] [place] [address] Performed By: #### 3 016-3, 25191-6, 07489-6, 52046-7 #### [facility] CLIA [id number] [address] [place] [address] [place] ALT [Catalytic activity/Vol] 17 U/L Normal 7-38 [facility] Comment on above: Order Comment: Speci men Type: BLOOD SPECIMEN Ordering Facility: [facility] Address: [address] [place] [address] Performed By: #### 3 016-3, 74869-1, 22167-7, 76696-4 #### [facility] CLIA [id number] [address] [place] [address] [place] Anion gap [Moles/Vol] 7 mmol/L Low 8-15 [facility] Comment on above: Order Comment: Speci men Type: BLOOD SPECIMEN Ordering Facility: [facility] Address: [address] [place] [address] Performed By: #### 3 016-3, 46640-0, 00146-6, 39553-3 #### [facility] CLIA [id number] [address] [place] [address] [place] AST [Catalytic activity/Vol] 22 U/L Normal 13-35 [facility] Comment on above: Order Comment: Speci men Type: BLOOD SPECIMEN Ordering Facility: [facility] Address: [address] [place] [address] Performed By: #### 3 016-3, 69463-7, 09443-7, 29359-1 #### [facility] CLIA [id number] [address] [place] [address] [place] Bilirubin [Mass/Vol] 0.4 mg/dL Normal 0.2-1.3 [facility] Comment on above: Order Comment: Speci men Type: BLOOD SPECIMEN Ordering Facility: [facility] Address: [address] [place] [address] Performed By: #### 3 016-3, 41540-5, 40300-2, 27630-5 #### [facility] CLIA [id number] [address] [place] [address] [place] Calcium [Mass/Vol] 9.3 mg/dL Normal 8.5-10.2 [facility] Comment on above: Order Comment: Speci men Type: BLOOD SPECIMEN Ordering Facility: [facility] Address: [address] [place] [address] Performed By: #### 3 016-3, 63933-0, 01129-1, 05943-9 #### [facility] CLIA [id number] [address] [place], [place] [id number] [place] Chloride [Moles/Vol] 106 mmol/L Normal 98-107 [facility] Comment on above: Order Comment: Speci men Type: BLOOD SPECIMEN Ordering Facility: [facility] Address: [address] [place] [address] Performed By: #### 3 016-3, 29419-0, 38386-2, 76956-7 #### [facility] CLIA [id number] [address] [place] [address] [place] CO2 [Moles/Vol] 26 mmol/L Normal 22-30 [facility] Comment on above: Order Comment: Speci men Type: BLOOD SPECIMEN Ordering Facility: [facility] Address: [address] [place] [address] Performed By: #### 3 016-3, 09809-1, 91886-1, 73205-6 #### [facility] CLIA [id number] [address] [place] [address] [place] Creatinine [Mass/Vol] 0.62 mg/dL Normal 0.58-0.96 [facility] Comment on above: Order Comment: Speci men Type: BLOOD SPECIMEN Ordering Facility: [facility] Address: [address] [place] [address] Performed By: #### 3 016-3, 48330-9, 53524-8, 75752-7 #### [facility] CLIA [id number] [address] [place] [address] [place] Creatinine and Glomerular filtration rate.predicted panel (S/P/Bld) 95 mL/min/1.73m??? Normal >=60 [facility] Comment on above: Order Comment: Speci men Type: BLOOD SPECIMEN Ordering Facility: [facility] Address: [address] [place] [address] Result Comment: Heydi mated Glomerular Filtration Rate [...] actual GFR. Performed By: #### 3 016-3, 87546-6, 62760-3, 18687-2 #### [facility] CLIA [id number] [address] [place] [address] [place] Glucose [Mass/Vol] 83 mg/dL Normal 74-99 [facility] Comment on above: Order Comment: Margie aguirre Type: BLOOD SPECIMEN Ordering Facility: [facility] Address: [address] [place] [address] Result Comment: The [place] Diabetes Association (ADA) provides guidance for cutoff [...] Standards of Medical Care in Diabetes 2016, [place] [employer]. Diabetes Care. 2016.39(Suppl 1). Performed By: #### 3 016-3, 37907-3, 12578-6, 96495-4 #### [facility] CLIA [id number] [address] [place] [address] [place] Potassium [Moles/Vol] 4.3 mmol/L Normal 3.7-5.1 [facility] Comment on above: Order Comment: Margie aguirre Type: BLOOD SPECIMEN Ordering Facility: [facility] Address: [address] [place] [address] Performed By: #### 3 016-3, 41770-3, 80649-1, 65111-8 #### [facility] CLIA [id number] [address] [place] [address] [place] Protein [Mass/Vol] 6.5 g/dL Normal 6.3-8.0 [facility] Comment on above: Order Comment: Speci men Type: BLOOD SPECIMEN Ordering Facility: [facility] Address: [address] [place] [address] Performed By: #### 3 016-3, 02457-4, 86269-5, 79340-2 #### [facility] CLIA [id number] [address] [place] [address] [place] Sodium [Moles/Vol] 139 mmol/L Normal 136-144 [facility] Comment on above: Order Comment: Speci men Type: BLOOD SPECIMEN Ordering Facility: [facility] Address: [address] [place] [address] Performed By: #### 3 016-3, 52899-8, 30031-6, 26301-5 #### [facility] CLIA [id number] [address] [place] [address] [place] Urea nitrogen [Mass/Vol] 16 mg/dL Normal 7-21 [facility] Comment on above: Order Comment: Speci men Type: BLOOD SPECIMEN Ordering Facility: [facility] Address: [address] [place] [address] Performed By: #### 3 016-3, 18792-9, 85267-8, 77589-2 #### [facility] CLIA [id number] [address] [place] [address] [place] Iron and Iron binding capaci ty panelon 11-22-2023 Iron [Mass/Vol] 82 ug/dL Normal 41-186 [facility] Comment on above: Order Comment: Speci men Type: BLOOD SPECIMEN Ordering Facility: [facility] Address: [address] [place] [address] Performed By: #### 3 016-3, 26219-8, 00561-0, 85418-6 #### [facility] CLIA [id number] [address] [place] [address] [place] Iron binding capacity [Mass/Vol] 326 ug/dL Normal 232-386 [facility] Comment on above: Order Comment: Speci men Type: BLOOD SPECIMEN Ordering Facility: [facility] Address: [address] [place] [address] Performed By: #### 3 016-3, 24446-4, 64102-8, 71604-1 #### [facility] CLIA [id number] [address] [place] [address] [place] Iron/TIBC [Molar ratio] 25.2 % Normal 15.0-57.0 [facility] Comment on above: Order Comment: Speci men Type: BLOOD SPECIMEN Ordering Facility: [facility] Address: [address] [place] [address] Performed By: #### 3 016-3, 08922-1, 26595-9, 09715-3 #### [facility] CLIA [id number] [address] [place] [address] [place] Lipid 1996 panelon 4 Cholesterol [Mass/Vol] 210 mg/dL High <200 [facility] Comment on above: Order Comment: Speci men Type: BLOOD SPECIMEN Ordering Facility: [facility] Address: [address] [place] [address] Result Comment: <200 mg/dL, Desirable 200-239 mg/dL, Borderline high >239 mg/dL, High Performed By: #### 3 016-3, 39658-7, 62147-4, 52605-8 #### [facility] CLIA [id number] [address] [place] [address] [place] Cholesterol in HDL [Mass/Vol] 85 mg/dL Normal >39 [facility] Comment on above: Order Comment: Speci men Type: BLOOD SPECIMEN Ordering Facility: [facility] Address: [address] [place] [address] Result Comment: 40-5 9 mg/dL, Acceptable >59 mg/dL, High: Negative risk factor for coronary heart disease <40 mg/dL, Low: Positive risk factor for coronary heart disease Performed By: #### 3 016-3, 81998-5, 17222-0, 80418-0 #### [facility] CLIA [id number] [address] [place] [address] [place] Cholesterol in LDL [Mass/Vol] 105 mg/dL High <100 [facility] Comment on above: Order Comment: Margie aguirre Type: BLOOD SPECIMEN Ordering Facility: [facility] Address: [address] [place] [address] Result Comment: <100 mg/dL, Optimal 100-129 mg/dL, Near optimal/above optimal 130-159 mg/dL, Borderline high 160-189 mg/dL, High >189 mg/dL, Very high Secondary prevention optimal LDL Cholesterol levels are recommended to be < 70 mg/dL Performed By: #### 3 016-3, 68241-6, 12374-0, 89595-0 #### [facility] CLIA [id number] [address] [place] [address] [place] Cholesterol in LDL/Cholesterol in HDL [Mass ratio] 1.24 {ratio} Normal <2.54 [facility] Comment on above: Order Comment: Margie aguirre Type: BLOOD SPECIMEN Ordering Facility: [facility] Address: [address] [place] [address] Result Comment: Refe rence: 1. National Cholesterol Education Program ATP III Guideline At-A-Glance Quick Desk Reference: National Heart, Lung, and Blood [place]. National Institutes of Health. 2001: NIH Publication No. 01-3305. 2. An International Atherosclerosis Society position paper: global recommendations for the management of dyslipidemia: executive summary, Atherosclerosis. 2014: 232(2):410-413. Performed By: #### 3 016-3, 94204-1, 82215-8, 92363-8 #### [facility] CLIA [id number] [address] [place] [address] [place] Cholesterol in VLDL [Mass/Vol] 20 mg/dL Normal <30 [facility] Comment on above: Order Comment: Speci men Type: BLOOD SPECIMEN Ordering Facility: [facility] Address: [address] [place] [address] Performed By: #### 3 016-3, 14309-0, 48429-1, 03094-7 #### [facility] CLIA [id number] [address] [place], [place] [id number] [place] Cholesterol non HDL [Mass/Vol] 125 mg/dL Normal <130 [facility] Comment on above: Order Comment: Speci men Type: BLOOD SPECIMEN Ordering Facility: [facility] Address: [address] [place] [address] Result Comment: <130 mg/dL, Optimal 130-159 mg/dL, Near optimal/above optimal 160-189 mg/dL, Borderline high 190-219 mg/dL, High >219 mg/dL, Very high Secondary prevention optimal non HDL Cholesterol levels are recommended to be <100 mg/dL Performed By: #### 3 016-3, 67951-8, 04421-0, 58224-9 #### [facility] CLIA [id number] [address] [place] [address] [place] Cholesterol.total/Sindi sterol in HDL [Mass ratio] 2.47 {ratio} Normal <5.10 [facility] Comment on above: Order Comment: Speci men Type: BLOOD SPECIMEN Ordering Facility: [facility] Address: [address] [place] [address] Performed By: #### 3 016-3, 14258-5, 46250-4, 82835-4 #### [facility] CLIA [id number] [address] [place], [place] [address] [place] FASTING TIME 15 hrs Normal [facility] Comment on above: Order Comment: Speci men Type: BLOOD SPECIMEN Ordering Facility: [facility] Address: [address] [place] [address] Performed By: #### 3 016-3, 66070-3, 46449-1, 31917-9 #### [facility] CLIA [id number] [address] [place] [address] [place] Triglyceride [Mass/Vol] 99 mg/dL Normal <150 [facility] Comment on above: Order Comment: Speci men Type: BLOOD SPECIMEN Ordering Facility: [facility] Address: [address] [place] [address] Result Comment: <150 mg/dL, Normal 150-199 mg/dL, Borderline high 200-499 mg/dL, High >499 mg/dL, Very high Performed By: #### 3 016-3, 75320-6, 73218-7, 82617-4 #### [facility] CLIA [id number] [address] [place] [address] [place] TSH SerPl-aCncon 11-22-2023 TSH Qn 3.810 m[IU]/L Normal 0.270-4.200 [facility] Comment on above: Order Comment: Speci men Type: BLOOD SPECIMEN Ordering Facility: [facility] Address: [address] [place] [address] Performed By: #### 3 016-3, 83216-1, 45643-9, 71667-6 #### [facility] CLIA [id number] [address] [place] [address] [place] Brain/Head without Contrasto n 05-20-2023 Brain/Head without Contrast [facility] Imaging Services [address] [place] [address] Brain/Head without Contrast MR#: [id number] Acct: [id number] Name: CALISTA CANNON Rep #: [id number] : 1950 F 73 From: Jonel Meier MD PCP: Dr. Humera Lamas MD Status: PRE ER Study: Brain/Head without Contrast Date of Exam: 08/11 Exam# [id number] Ordering Dr: Liane Woody MD [id number] INDICATION: injury EXAMINATION: CT BRAIN - CT [...] Liane Woody MD; Dr. Humera Lamas MD Marketing Support Assistant: Signed Normal [facility] Emergency Department Summary on 05-20-2023 Emergency Department Summary [facility] Medical Records Department [address] [place] [address] Emergency Department Summary 05/20/23 MR#: [id number] Acct: [id number] Name: CALISTA CANNON Rep #: [id number] : 1950 73 From: Liane Woody MD [...] lose consciousness. She is not on anticoagulants. [facility] Medical History (Updated 05/20/23 @ 23:08 by [...] Hip/Pelvis X-Ray (more content not included)... Normal [facility] HIP, UNI W/ Pelvis 2-3 Views on 05-20-2023 HIP, UNI W/ Pelvis 2-3 Views [facility] Imaging Services [address] [place] [address] HIP, UNI W/ Pelvis 2-3 Views MR#: [id number] Acct: [id number] Name: CALISTA CANNON Rep #: [id number] : 1950 F 73 From: Jonel Meier MD PCP: Dr. Humera Lamas MD Status: PRE ER Study: HIP, UNI W/ Pelvis 2-3 Views Date of Exam: 08/11 Exam# [id number] Ordering Dr: Liane Woody MD [id number] INDICATION: injury EXAMINATION/TECHNIQUE : X-RAY - RIGHT [...] Liane Woody MD; Dr. Humera Lamas MD Marketing Support Assistant: Signed Normal [facility] XR Ribs - right Views and est PAon 07-31-2020 IMPRESSION: No acute pathology identified. No rib fractures are seen. Marketing Support Assistant: PSCB Transcribe Date/Time: Jul 31 2020 2:55P Dictated by : SHARA GOODWIN DO This examination was interpreted and the report reviewed and electronically signed by: SHARA GOODWIN DO on Jul 31 2020 2:56PM [facility] DIVISION OF RADIOLOGY * * *Final [...] fractures are seen. DIVISION OF RADIOLOGY Provider, [facility] - 07/31/2020 * * *Final [...] pathology identified. No rib fractures are seen. Marketing Support Assistant: PSCB Transcribe Date/Time: Jul 31 2020 2:55P Dictated by : SHARA GOODWIN DO This examination was interpreted and the report reviewed and electronically signed by: SHARA GOODWIN DO on Jul 31 2020 2:56PM [facility] Radiology Study observation (narrative[facility] - right Views and Ch est PAOrdered By: Ccf Provider on 07-31-2020 [facility] Vital Signs Date Time Vital Sign Value Performing Clinician Julianna vincent 06-24-2024 10:51-0500 Body mass index (BMI) [Ratio] 21.78 kg/m2 Pepperkevin Diallohof LITHOGRAPHIC RETOUCHER APPRENTICE.FORENSIC ANALYST Work Phone: [facility] 06-24-2024 10:51-0500 Body weight 62.14 kg Pepperkevin Diallohof LITHOGRAPHIC RETOUCHER APPRENTICE.FORENSIC ANALYST Work Phone: [facility] 06-24-2024 10:51-0500 Diastolic blood pressure 66 mm[Hg] Pepper Tannhof LITHOGRAPHIC RETOUCHER APPRENTICE.FORENSIC ANALYST Work Phone: [facility] 06-24-2024 10:51-0500 Heart rate 78 /min Pepper Diallohof LITHOGRAPHIC RETOUCHER APPRENTICE.FORENSIC ANALYST Work Phone: [facility] 06-24-2024 10:51-0500 Respiratory rate 16 /min Pepper Diallohof LITHOGRAPHIC RETOUCHER APPRENTICE.FORENSIC ANALYST Work Phone: [facility] 06-24-2024 10:51-0500 SaO2% (BldA) [Mass fraction] 98 % Pepperkevin Diallohof LITHOGRAPHIC RETOUCHER APPRENTICE.FORENSIC ANALYST Work Phone: [facility] 06-24-2024 10:51-0500 Systolic blood pressure 106 mm[Hg] Pepper Diallohof LITHOGRAPHIC RETOUCHER APPRENTICE.FORENSIC ANALYST Work Phone: [facility] 12-01-2023 10:47-0400 Body mass index (BMI) [Ratio] 24.64 kg/m2 Pepperkevin Diallohof LITHOGRAPHIC RETOUCHER APPRENTICE.FORENSIC ANALYST Work Phone: [facility] 12-01-2023 10:47-0400 Body weight 70.31 kg Pepper Tannhof LITHOGRAPHIC RETOUCHER APPRENTICE.FORENSIC ANALYST Work Phone: [facility] 12-01-2023 10:47-0400 Diastolic blood pressure 68 mm[Hg] Pepper Diallohof LITHOGRAPHIC RETOUCHER APPRENTICE.FORENSIC ANALYST Work Phone: [facility] 12-01-2023 10:47-0400 Heart rate 84 /min Pepper Diallohof LITHOGRAPHIC RETOUCHER APPRENTICE.FORENSIC ANALYST Work Phone: [facility] 12-01-2023 10:47-0400 Respiratory rate 16 /min Pepper Sousa LITHOGRAPHIC RETOUCHER APPRENTICE.FORENSIC ANALYST Work Phone: [facility] 12-01-2023 10:47-0400 SaO2% (BldA) [Mass fraction] 98 % Pepper Sousa LITHOGRAPHIC RETOUCHER APPRENTICE.FORENSIC ANALYST Work Phone: [facility] 12-01-2023 10:47-0400 Systolic blood pressure 110 mm[Hg] Pepper Sousa LITHOGRAPHIC RETOUCHER APPRENTICE.FORENSIC ANALYST Work Phone: [facility] 05-30-2023 10:01-0500 Body weight 70.67 kg Humera Lamas MD Work Phone: [facility] 05-30-2023 10:01-0500 Diastolic blood pressure 76 mm[Hg] Humera Lamas MD Work Phone: [facility] 05-30-2023 10:01-0500 Heart rate 68 /min Humera Lamas MD Work Phone: [facility] 05-30-2023 10:01-0500 Respiratory rate 18 /min Humera Lamas MD Work Phone: [facility] 05-30-2023 10:01-0500 Systolic blood pressure 114 mm[Hg] Humera Lamas MD Work Phone: [facility] 05-20-2023 21:11-0500 Body height 167.64 cm [facility] 05-20-2023 21:11-0500 Body mass index (BMI) [Ratio] 27.3 kg/m2 [facility] 05-20-2023 21:11-0500 Body temperature 97.8 [degF] [facility] 05-20-2023 21:11-0500 Body weight 76.88 kg [facility] 05-20-2023 21:11-0500 Diastolic blood pressure 97 mm[Hg] [facility] 05-20-2023 21:11-0500 Heart rate 101 /min [facility] 05-20-2023 21:11-0500 Respiratory rate 16 /min [facility] 05-20-2023 21:11-0500 SaO2% (BldA) [Mass fraction] 98 % [facility] 05-20-2023 21:11-0500 Systolic blood pressure 156 mm[Hg] [facility] 06-16-2022 11:35-0500 Diastolic blood pressure 82 mm[Hg] Pepper Tannhof LITHOGRAPHIC RETOUCHER APPRENTICE.FORENSIC ANALYST Work Phone: [facility] 06-16-2022 11:35-0500 Heart rate 82 /min Pepper Tannhof LITHOGRAPHIC RETOUCHER APPRENTICE.FORENSIC ANALYST Work Phone: [facility] 06-16-2022 11:35-0500 Respiratory rate 16 /min Pepper Tannhof LITHOGRAPHIC RETOUCHER APPRENTICE.FORENSIC ANALYST Work Phone: [facility] 06-16-2022 11:35-0500 SaO2% (BldA) [Mass fraction] 100 % Pepper Tannhof LITHOGRAPHIC RETOUCHER APPRENTICE.FORENSIC ANALYST Work Phone: [facility] 06-16-2022 11:35-0500 Systolic blood pressure 130 mm[Hg] Pepper Tannhof LITHOGRAPHIC RETOUCHER APPRENTICE.FORENSIC ANALYST Work Phone: [facility] 05-24-2022 10:57-0500 Diastolic blood pressure 78 mm[Hg] Humera Lamas MD Work Phone: [facility] 05-24-2022 10:57-0500 Systolic blood pressure 126 mm[Hg] Humera Lamas MD Work Phone: [facility] 05-24-2022 10:53-0500 Body weight 76.39 kg Huemra Lamas MD Work Phone: [facility] 05-24-2022 10:53-0500 Heart rate 64 /min Humera Lamas MD Work Phone: [facility] 05-24-2022 10:53-0500 Respiratory rate 16 /min Humera Lamas MD Work Phone: [facility] 11-20-2021 09:22-0400 Body weight 76.2 kg Humera Lamas MD Work Phone: [facility] 11-20-2021 09:22-0400 Diastolic blood pressure 70 mm[Hg] Humera Lamas MD Work Phone: [facility] 11-20-2021 09:22-0400 Heart rate 72 /min Humera Lamas MD Work Phone: [facility] 11-20-2021 09:22-0400 Respiratory rate 14 /min Humera Lamas MD Work Phone: [facility] 11-20-2021 09:22-0400 Systolic blood pressure 118 mm[Hg] Humera Lamas MD Work Phone: [facility] Encounters Encounter Date Encounter Type Care Provider Facility Start: 08-19-2024 End: 10-19-2024 Follow-up encounter Pepper Sousa APRN.FORENSIC ANALYST Work Phone: [facility] Comment on above: Results Start: 08-12-2024 End: 08-12-2024 ambulatory PEPPER SOUSA Facility:[facility] Start: 08-12-2024 End: 08-12-2024 Subsequent hospital visit by physician Bone Density [facility] Work Phone: Radiology Comment on above: Asymptomatic postmen opausal status [Z78.0] Start: 06-27-2024 End: 07-01-2024 Telephone encounter Pepper Sousa APRN.FORENSIC ANALYST Work Phone: [facility] Comment on above: Results (Lumbar xray ) Start: 06-24-2024 End: 06-24-2024 Subsequent hospital visit by physician Xr [facility] [place] Work Phone: Radiology Comment on above: Acute midline low ba ck pain without sciatica [M54.50] Start: 06-24-2024 End: 06-24-2024 Patient encounter procedure Pepper Sousa APRN.FORENSIC ANALYST Work Phone: [facility] Comment on above: Acute midline low ba ck pain without sciatica (Primary Dx); Collagenous colitis; Celiac disease; Hypothyroidism, unspecified type; Hyperlipidemia, unspecified hyperlipidemia type; Iron deficiency anemia, unspecified iron deficiency anemia type; Chronic pain of both knees Start: 06-24-2024 End: 06-24-2024 ambulatory [facility] Facility:[facility] Start: 06-20-2024 End: 06-20-2024 [facility] Facility:[facility] Start: 04-01-2024 End: 04-01-2024 Telephone encounter Pepper Sousa JOCELINE Work Phone: [facility] Comment on above: Results (Mammogram ) Start: 03-27-2024 End: 03-27-2024 [facility] Facility:[facility] Start: 03-27-2024 End: 03-27-2024 Subsequent hospital visit by physician Screen Mammo [facility] Mammogram Comment on above: Encounter for screen ing mammogram for malignant neoplasm of breast [Z12.31] Start: 12-01-2023 End: 12-01-2023 Patient encounter procedure Pepper Sousa JOCELINE Work Phone: [facility] Comment on above: Other chest pain (Pr imary Dx); Celiac disease; Hypothyroidism, unspecified type; Hyperlipidemia, unspecified hyperlipidemia type; Iron deficiency anemia, unspecified iron deficiency anemia type; Chronic pain of both knees; Vitamin D deficiency; Encounter for screening mammogram for malignant neoplasm of breast Start: 12-01-2023 End: 12-01-2023 [facility] Facility:[facility] Start: 11-22-2023 End: 11-22-2023 ambulatory HUMERA LAMAS Facility:[facility] Start: 05-30-2023 End: 05-30-2023 Patient encounter [...] Telephone encounter Humera cuello MD Work Phone: [facility] Comment on above: ER F/U; Medication P roblem; Appointment (needs staple removal ) Start: 05-20-2023 End: 05-21-2023 Emergency department patient visit Humera Lamas Facility:[facility] Start: 05-20-2023 End: 05-20-2023 Emergency department patient visit [facility] Work Phone: Start: 01-11-2023 ambulatory Humera goins MD Work Phone: [facility] [place] Start: 06-21-2022 Telephone encounter Humera cuello MD Work Phone: [facility] Comment on above: Patient Update Start: 06-16-2022 End: 06-16-2022 Patient encounter procedure Pepper Sousa APRN.FORENSIC ANALYST Work Phone: [facility] Comment on above: Acute otitis media, unspecified otitis media type (Primary Dx) Start: 05-25-2022 Telephone encounter Humera cuello MD Work Phone: [facility] Comment on above: Results Start: 05-24-2022 End: 05-24-2022 Patient encounter procedure Humera Lamas MD Work Phone: [facility] Comment on above: Iron deficiency anem ia, unspecified iron deficiency anemia type (Primary Dx); Hypothyroidism, unspecified type; Hyperlipidemia, unspecified hyperlipidemia type; Chronic pain of both knees; Collagenous colitis; Vitamin D deficiency Start: 04-21-2022 Telephone encounter Humera cuello MD Work Phone: [facility] Comment on above: Results Refill Request Start: 03-02-2022 Telephone encounter Humera cuello MD Work Phone: [facility] Comment on above: Lab Orders Start: 11-25-2021 Documentation procedure Mammog mitzy Coordinator [facility] Start: 11-25-2021 Letter encounter Mammography Coordinator [facility] Department Start: 11-25-2021 Telephone encounter Humera cuello MD Work Phone: [facility] Comment on above: Results Start: 11-24-2021 End: 11-24-2021 Subsequent hospital visit by physician Screen Mammo [facility] M[facility] Comment on above: Encounter for [...] 07-31-2020 Subsequent hospital visit by physician Xr [facility] Work Phone: Radiology Comment on above: Chest wall contusion , right, initial encounter [S20.211A] Procedures Date Procedure Procedure Detail Performing Clinician Start: 08-12-2024 BD DXA TRABECULAR KAUR NE SCORE (TBS) Pepper Sousa APRN.FORENSIC ANALYST Work Phone: Start: 08-12-2024 Dxa bone density cait dy 1/> sites axial skel Pepper Sousa LITHOGRAPHIC RETOUCHER APPRENTICE.FORENSIC ANALYST Work Phone: Start: 06-20-2024 Lipid 1995 panel - S diandra or Plasma Pepper Sousa LITHOGRAPHIC RETOUCHER APPRENTICE.FORENSIC ANALYST Work Phone: Start: 12-01-2023 Ecg routine ecg w/le ast 12 lds i&r only Pepper Sousa LITHOGRAPHIC RETOUCHER APPRENTICE.FORENSIC ANALYST Work Phone: Start: 12-01-2023 Adult depression scr eening assessment Xr [place] Work Phone: Start: 11-22-2023 Lipid 1995 panel - S diandra or Plasma Pepper Sousa LITHOGRAPHIC RETOUCHER APPRENTICE.FORENSIC ANALYST Work Phone: Start: 05-26-2023 Lipid 1995 panel [...] DTaP,Tdap,Td Vaccine (3 - Td or Tdap) [facility] Start: 06-20-2029 Lipid panel Lipid Screening [facility] Start: 11-21-2028 Lipid panel Lipid Screening [facility] Start: 05-26-2028 Lipid panel Lipid Screening [facility] Start: 11-18-2027 Lipid 1996 panel - Serum or Plasma Lipid Screening [facility] Start: 11-18-2027 LIPID SCREEN LIPID SCREEN [facility] Start: 06-20-2027 Diabetes Screening Diabetes Screenin g [facility] Start: 11-21-2026 [facility] Start: 10-28-2026 LIPID SCREEN LIPID SCREEN [facility] Start: 05-26-2026 Diabetes Screening Diabetes Screenin g [facility] Start: 03-29-2026 LIPID SCREEN LIPID SCREEN [facility] Start: 2026 RSV Vaccine (1 - 1-d ose 75+ series) RSV Vaccine (1 - 1-dose 75+ series) [facility] Start: 11-17-2025 DIABETES SCREEN DIABETES SCREEN [facility] Start: 11-17-2025 Diabetes Screening Diabetes Screenin g [facility] Start: 06-24-2025 Annual PCP Team Electric Switch Repairer yoseph Disease Visit Annual PCP Team Chronic Disease Visit [facility] Start: 06-24-2025 Covid-19 Vaccine ( season) Covid-19 Vaccine ( season) [facility] Comment on above: Postponed from 02/17 (Declined at this time) Start: 03-27-2025 Screening for malign ant neoplasm of breast Mammogram Screening [facility] Start: 01-21-2025 Colonoscopy COLONOSCOPY [facility] Start: 01-21-2025 COLORECTAL CANCER SCREENING COLORECTAL CANCER SCREENING [facility] Start: 01-21-2025 Screening for malign ant neoplasm of colon [facility] Start: 01-01-2025 End: 01-01-2025 Patient encounter procedure 01/01/2025 1:00 PM EDT Office Visit Family Jaclyn Jackson [address] [place] [address] Pepper Sousa APRN.FORENSIC ANALYST [address] [place] [address] 6 month follow up with labs Family Jaclyn Jackson Comment on above: 6 month follow up [facility] Start: 12-22-2024 End: 03-23-2025 CBC W Auto Differential panel - Blood COMPLETE BLOOD COUNT AND DIFFERENTIAL Lab Routine Iron deficiency anemia, unspecified iron deficiency anemia type Expected: 12/22/2024, Expires: 03/23/2025 [facility] Comment on above: Expected: 12/22/2024 , Expires: 03/23/2025 Start: 12-22-2024 End: 03-23-2025 Comprehensive metabolic 2000 panel - Serum or Plasma COMPREHENSIVE METABOLIC PANEL Lab Routine Celiac disease Expected: 12/22/2024, Expires: 03/23/2025 [facility] Comment on above: Expected: 12/22/2024 , Expires: 03/23/2025 Start: 12-22-2024 End: 03-23-2025 Iron and Iron binding capacity panel - Serum or Plasma IRON AND TIBC Lab Routine Iron deficiency anemia, unspecified iron deficiency anemia type Expected: 12/22/2024, Expires: 03/23/2025 [facility] Comment on above: Expected: 12/22/2024 , Expires: 03/23/2025 Start: 12-22-2024 End: 03-23-2025 Lipid 1996 panel - Serum or Plasma LIPID PANEL BASIC Lab Routine Hyperlipidemia, unspecified hyperlipidemia type Expected: 12/22/2024, Expires: 03/23/2025 [facility] Comment on above: Expected: 12/22/2024 , Expires: 03/23/2025 Start: 12-22-2024 End: 03-23-2025 Thyrotropin [Units/volume] in Serum or Plasma THYROID STIMULATING HORMONE Lab Routine Hypothyroidism, unspecified type Expected: 12/22/2024, Expires: 03/23/2025 [facility] Work Phone: Comment on above: Expected: 12/22/2024 , Expires: 03/23/2025 Start: 12-22-2024 End: 03-23-2025 Thyroxine (T4) free [Mass/volume] in Serum or Plasma T4 FREE/FREE THYROXINE Lab Routine Hypothyroidism, unspecified type Expected: 12/22/2024, Expires: 03/23/2025 [facility] Comment on above: Expected: 12/22/2024 , Expires: 03/23/2025 Start: 12-16-2024 Influenza vaccination Influenza Vacc ine (#1) [facility] Comment on above: Postponed from 02/17 (Declined at this time) Start: 11-30-2024 Annual PCP Team Electric Switch Repairer yoseph Disease Visit Annual PCP Team Chronic Disease Visit [facility] Start: 11-30-2024 Anxiety Screening Anxiety Screening [facility] Start: 11-30-2024 Depression Screening Depression Scre ening [facility] Start: 10-28-2024 DIABETES SCREEN DIABETES SCREEN [facility] Start: 06-06-2024 End: 06-06-2024 Patient encounter procedure 06/06/2024 10:00 AM EST Office Visit [facility] [address] [place] [address] Pepper Sousa, SCOT.FORENSIC ANALYST [address] [place] [address] 6 month follow up [facility] Comment on above: 6 month follow up Start: 06-01-2024 End: 08-31-2024 25-hydroxyvitamin D3 [Mass/volume] in Serum or Plasma VITAMIN D 25 HYDROXY Lab Routine Vitamin D deficiency Expected: 06/01/2024, Expires: 08/31/2024 [facility] Comment on above: Expected: 06/01/2024 , Expires: 08/31/2024 Start: 06-01-2024 End: 08-31-2024 CBC W Auto Differential panel - Blood COMPLETE BLOOD COUNT AND DIFFERENTIAL Lab Routine Iron deficiency anemia, unspecified iron deficiency anemia type Expected: 06/01/2024, Expires: 08/31/2024 [facility] Work Phone: Comment on above: Expected: 06/01/2024 , Expires: 08/31/2024 Start: 06-01-2024 End: 08-31-2024 Comprehensive metabolic 2000 panel - Serum or Plasma COMPREHENSIVE METABOLIC PANEL Lab Routine Celiac disease Expected: 06/01/2024, Expires: 08/31/2024 [facility] Comment on above: Expected: 06/01/2024 , Expires: 08/31/2024 Start: 06-01-2024 End: 08-31-2024 Iron and Iron binding capacity panel - Serum or Plasma IRON AND TIBC Lab Routine Iron deficiency anemia, unspecified iron deficiency anemia type Expected: 06/01/2024, Expires: 08/31/2024 [facility] Comment on above: Expected: 06/01/2024 , Expires: 08/31/2024 Start: 06-01-2024 End: 08-31-2024 Lipid 1996 panel - Serum or Plasma LIPID PANEL BASIC Lab Routine Hyperlipidemia, unspecified hyperlipidemia type Expected: 06/01/2024, Expires: 08/31/2024 [facility] Comment on above: Expected: 06/01/2024 , Expires: 08/31/2024 Start: 06-01-2024 End: 08-31-2024 Thyrotropin [Units/volume] in Serum or Plasma THYROID STIMULATING HORMONE Lab Routine Hypothyroidism, unspecified type Expected: 06/01/2024, Expires: 08/31/2024 [facility] Comment on above: Expected: 06/01/2024 , Expires: 08/31/2024 Start: 05-30-2024 Annual PCP Team Electric Switch Repairer yoseph Disease Visit Annual PCP Team Chronic Disease Visit [facility] Start: 05-30-2024 Covid-19 Vaccine (#1) Covid-19 Vacci ne (#1) [facility] Comment on above: Postponed from 09/26 (Declined at this time) Start: 05-30-2024 Covid-19 Vaccine () Covid-19 Vaccine () [facility] Comment on above: Postponed from 02/17 (Declined at this time) Start: 03-29-2024 DIABETES SCREEN DIABETES SCREEN [facility] Start: 03-27-2024 End: 03-27-2024 Patient encounter procedure 03/27/2024 10:10 AM EDT Appointment Mammogram [address] [place] [address] CHIN SCREENING W HEIDI Mammogram Comment on above: CHIN SCREENING W HEIDI Start: 02-18-2024 Covid-19 Vaccine ( season) Covid-19 Vaccine ( season) [facility] Start: 02-18-2024 Influenza vaccination [facility] Start: 12-17-2023 Influenza vaccination Influenza Vacc ine (#1) [facility] Comment on above: Postponed from 02/17 (Declined at this time) Start: 11-29-2023 End: 02-28-2024 CBC W Auto Differential panel - Blood CBC + DIFF Lab Routine Iron deficiency anemia, unspecified iron deficiency anemia type Expected: 11/29/2023 (Approximate), Expires: 02/28/2024 [facility] Work Phone: Comment on above: Expected: 11/29/2023 (Approximate), Expires: 02/28/2024 Start: 11-29-2023 End: 02-28-2024 Comprehensive metabolic 2000 panel - Serum or Plasma COMP METABOLIC PANEL Lab Routine Hyperlipidemia, unspecified hyperlipidemia type Expected: 11/29/2023 (Approximate), Expires: 02/28/2024 [facility] Work Phone: Comment on above: Expected: 11/29/2023 (Approximate), Expires: 02/28/2024 Start: 11-29-2023 End: 02-28-2024 Iron and Iron binding capacity panel - Serum or Plasma IRON + TIBC Lab Routine Celiac disease Iron deficiency anemia, unspecified iron deficiency anemia type Expected: 11/29/2023 (Approximate), Expires: 02/28/2024 [facility] Work Phone: Comment on above: Expected: 11/29/2023 (Approximate), Expires: 02/28/2024 Start: 11-29-2023 End: 02-28-2024 Lipid 1996 panel - Serum or Plasma LIPID PANEL BASIC Lab Routine Hyperlipidemia, unspecified hyperlipidemia type Expected: 11/29/2023 (Approximate), Expires: 02/28/2024 [facility] Work Phone: Comment on above: Expected: 11/29/2023 (Approximate), Expires: 02/28/2024 Start: 11-29-2023 End: 02-28-2024 Thyrotropin [Units/volume] in Serum or Plasma TSH BLD Lab Routine Hypothyroidism, unspecified type Expected: 11/29/2023 (Approximate), Expires: 02/28/2024 [facility] Work Phone: Comment on above: Expected: 11/29/2023 (Approximate), Expires: 02/28/2024 Start: 11-25-2023 ANNUAL PCP TEAM ELECTRONIC PUBLISHING SPECIALIST YOSEPH DISEASE VISIT ANNUAL PCP TEAM CHRONIC DISEASE VISIT [facility] Start: 11-25-2023 Pneumococcal Vaccine : 65+ (2 - PCV) Pneumococcal Vaccine: 65+ (2 - PCV) [facility] Comment on above: Postponed from 07/27 (Declined at this time) Start: 11-25-2023 PNEUMOCOCCAL: 65+ (2 - PCV) PNEUMOCOCCAL: 65+ (2 - PCV) [facility] Comment on above: Postponed from 07/27 (Declined at this time) Start: 06-16-2023 ANNUAL PCP TEAM ELECTRONIC PUBLISHING SPECIALIST YOSEPH DISEASE VISIT ANNUAL PCP TEAM CHRONIC DISEASE VISIT [facility] Start: 05-24-2023 ANNUAL PCP TEAM ELECTRONIC PUBLISHING SPECIALIST YOSEPH DISEASE VISIT ANNUAL PCP TEAM CHRONIC DISEASE VISIT [facility] Start: 05-24-2023 COVID-19 VACCINE (#1) COVID-19 VACCI NE (#1) [facility] Comment on above: Postponed from 09/26 (Declined at this time) Start: 05-20-2023 [facility] Start: 02-17-2023 Influenza vaccination [facility] Start: 01-03-2023 FECAL OCCULT BLOOD FECAL OCCULT BLOO D [facility] Start: 01-03-2023 Screening for malign ant neoplasm of colon Fecal Occult Blood [facility] Start: 12-16-2022 Influenza vaccination INFLUENZA (#1) [facility] Comment on above: Postponed from 02/17 (Declined at this time) Start: 11-24-2022 Mammography [facility] Start: 11-24-2022 Screening for malign ant neoplasm of breast Mammogram Screening [facility] Start: 11-22-2022 End: 01-22-2023 25-hydroxyvitamin D3 [Mass/volume] in Serum or Plasma VITAMIN D 25 HYDROXY Lab Routine Vitamin D deficiency Expected: 11/22/2022 (Approximate), Expires: 01/22/2023 [facility] Work Phone: Comment on above: Expected: 11/22/2022 (Approximate), Expires: 01/22/2023 Start: 11-22-2022 End: 01-22-2023 CBC panel - Blood by Automated count CBC Lab Routine Celiac disease Hypothyroidism, unspecified type Anemia, unspecified type Expected: 11/22/2022 (Approximate), Expires: 01/22/2023 [facility] Work Phone: Comment on above: Expected: 11/22/2022 (Approximate), Expires: 01/22/2023 Start: 11-22-2022 End: 01-22-2023 Comprehensive metabolic 2000 panel - Serum or Plasma COMP METABOLIC PANEL Lab Routine Celiac disease Hyperlipidemia, unspecified hyperlipidemia type Expected: 11/22/2022 (Approximate), Expires: 01/22/2023 [facility] Work Phone: Comment on above: Expected: 11/22/2022 (Approximate), Expires: 01/22/2023 Start: 11-22-2022 End: 01-22-2023 Iron and Iron binding capacity panel - Serum or Plasma IRON + TIBC Lab Routine Celiac disease Anemia, unspecified type Expected: 11/22/2022 (Approximate), Expires: 01/22/2023 [facility] Work Phone: Comment on above: Expected: 11/22/2022 (Approximate), Expires: 01/22/2023 Start: 11-22-2022 End: 01-22-2023 Lipid 1996 panel - Serum or Plasma LIPID PANEL BASIC Lab Routine Hyperlipidemia, unspecified hyperlipidemia type Expected: 11/22/2022 (Approximate), Expires: 01/22/2023 [facility] Work Phone: Comment on above: Expected: 11/22/2022 (Approximate), Expires: 01/22/2023 Start: 11-22-2022 End: 01-22-2023 Thyrotropin [Units/volume] in Serum or Plasma TSH BLD Lab Routine Hypothyroidism, unspecified type Expected: 11/22/2022 (Approximate), Expires: 01/22/2023 [facility] Work Phone: Comment on above: Expected: 11/22/2022 (Approximate), Expires: 01/22/2023 Start: 11-20-2022 ANNUAL PCP TEAM ELECTRONIC PUBLISHING SPECIALIST YOSEPH DISEASE VISIT ANNUAL PCP TEAM CHRONIC DISEASE VISIT [facility] Start: 08-09-2022 ANNUAL PCP TEAM ELECTRONIC PUBLISHING SPECIALIST YOSEPH DISEASE VISIT ANNUAL PCP TEAM CHRONIC DISEASE VISIT [facility] Start: 06-19-2022 ADVANCE DIRECTIVE DISCUSSION ADVANCE DIRECTIVE DISCUSSION [facility] Start: 06-19-2022 DEPRESSION ASSESSMENT DEPRESSION ASS ESSMENT [facility] Start: 05-24-2022 End: 07-24-2022 25-hydroxyvitamin D3 [Mass/volume] in Serum or Plasma [facility] Work Phone: Comment on above: Expected: 05/24/2022 , Expires: 07/24/2022 Start: 05-24-2022 End: 07-24-2022 CBC W Auto Differential panel - Blood [facility] Work Phone: Comment on above: Expected: 05/24/2022 , Expires: 07/24/2022 Start: 05-24-2022 End: 07-24-2022 Iron and Iron binding capacity panel - Serum or Plasma [facility] Work Phone: Comment on above: Expected: 05/24/2022 , Expires: 07/24/2022 Start: 05-24-2022 End: 07-24-2022 Thyrotropin [Units/volume] in Serum or Plasma [facility] Work Phone: Comment on above: Expected: 05/24/2022 , Expires: 07/24/2022 Start: 03-07-2022 End: 05-07-2022 CBC panel - Blood by Automated count CBC Lab Routine Iron deficiency anemia, unspecified iron deficiency anemia type Expected: 03/07/2022, Expires: 05/07/2022 [facility] Work Phone: Comment on above: Expected: 03/07/2022 , Expires: 05/07/2022 Start: 03-07-2022 End: 05-07-2022 Iron and Iron binding capacity panel - Serum or Plasma IRON + TIBC Lab Routine Iron deficiency anemia, unspecified iron deficiency anemia type Expected: 03/07/2022, Expires: 05/07/2022 [facility] Work Phone: Comment on above: Expected: 03/07/2022 , Expires: 05/07/2022 Start: 02-17-2022 Influenza vaccination [facility] Start: 02-03-2022 Adult depression screening assessment DEPRESSION SCREENING [facility] Start: 12-24-2021 End: 02-23-2022 CBC panel - Blood by Automated count CBC Lab Routine Iron deficiency anemia, unspecified iron deficiency anemia type Expected: 12/24/2021 (Approximate), Expires: 02/23/2022 [facility] Work Phone: Comment on above: Expected: 12/24/2021 (Approximate), Expires: 02/23/2022 Start: 12-24-2021 End: 02-23-2022 IRON + TIBC IRON + TIBC Lab Routine Iron deficiency anemia, unspecified iron deficiency anemia type Expected: 12/24/2021 (Approximate), Expires: 02/23/2022 [facility] Work Phone: Comment on above: Expected: 12/24/2021 (Approximate), Expires: 02/23/2022 Start: 12-16-2021 Influenza vaccination INFLUENZA (#1) [facility] Comment on above: Postponed from 02/17 (Declined at this time) Start: 11-20-2021 End: 01-20-2022 CBC panel - Blood by Automated count [facility] Work Phone: Comment on above: Expected: 11/20/2021 , Expires: 01/20/2022 Start: 11-20-2021 End: 01-20-2022 Folate [Mass/volume] in Serum or Plasma [facility] Work Phone: Comment on above: Expected: 11/20/2021 , Expires: 01/20/2022 Start: 11-20-2021 End: 01-20-2022 IRON + TIBC [facility] Work Phone: Comment on above: Expected: 11/20/2021 , Expires: 01/20/2022 Start: 11-20-2021 End: 01-20-2022 VITAMIN B12 BLOOD [facility] Work Phone: Comment on above: Expected: 11/20/2021 , Expires: 01/20/2022 Start: 11-20-2021 End: 01-20-2022 VITAMIN D 25 HYDROXY [facility] Work Phone: Comment on above: Expected: 11/20/2021 , Expires: 01/20/2022 Start: 06-19-2021 ADVANCE DIRECTIVE DISCUSSION ADVANCE DIRECTIVE DISCUSSION [facility] Start: 06-19-2021 DEPRESSION ASSESSMENT DEPRESSION ASS ESSMENT [facility] Start: 01-04-2019 Mammography MAMMOGRAM [facility] Start: 07-27-2018 Pneumococcal Vaccine : 50+ (2 of 2 - PCV) Pneumococcal Vaccine: 50+ (2 of 2 - PCV) [facility] Start: 07-27-2018 Pneumococcal Vaccine : 65+ (2 of 2 - PCV) Pneumococcal Vaccine: 65+ (2 of 2 - PCV) [facility] Start: 07-27-2018 PNEUMOCOCCAL: 65+ (2 - PCV) PNEUMOCOCCAL: 65+ (2 - PCV) [facility] Start: 2011 RSV Vaccine (1 - 1-d ose 60+ series) RSV Vaccine (1 - 1-dose 60+ series) [facility] Start: 04-03-2010 Urine microalbumin profile DTAP,TDAP,TD (2 - Tdap) [facility] Start: 2001 SHINGRIX VACCINE (1 of 2) SHINGRIX VACCINE (1 of 2) [facility] Start: 1996 COLOGUARD (FIT-DNA) COLOGUARD (FIT-D NA) [facility] Start: [address] COLONOGRAPHY [facility] Start: 1996 FECAL OCCULT BLOOD FECAL OCCULT BLOO D [facility] Start: 1996 Screening for malign ant neoplasm of colon [facility] Start: 1996 SIGMOIDOSCOPY SIGMOIDOSCOPY [facility] Start: 1956 COVID-19 VACCINE (#1) COVID-19 VACCI NE (#1) [facility] Start: 1956 COVID-19 VACCINE (1) COVID-19 VACCIN E (1) [facility] Start: 1951 COVID-19 VACCINE (#1) COVID-19 VACCI NE (#1) [facility] End: 07-28-2025 BD DXA TRABECULAR BONE SCORE (TBS) BD DXA TRABECULAR BONE SCORE (TBS) Radiology Routine Asymptomatic postmenopausal status 1 Occurrences starting 06/28/2024 until 07/28/2025 [facility] Comment on above: 1 Occurrences starti ng 06/28/2024 until 07/28/2025 End: 12-30-2024 DBT Breast - bilateral screening CHIN SCREENING W HEIDI Radiology Routine Encounter for screening mammogram for malignant neoplasm of breast 1 Occurrences starting 12/01/2023 until 12/30/2024 [facility] Comment on above: 1 Occurrences starti ng 12/01/2023 until 12/30/2024 DBT Breast - bilater al screening CHIN SCREENING W HEIDI Radiology Routine Encounter for screening mammogram for malignant neoplasm of breast 03/27/2024 10:37 AM EDT [facility] Work Phone: End: 07-28-2025 DXA Skeletal system.axial Views for bone density DXA-AXIAL SKELETON Radiology Routine Asymptomatic postmenopausal status 1 Occurrences starting 06/28/2024 until 07/28/2025 [facility] Work Phone: Comment on above: 1 Occurrences starti ng 06/28/2024 until 07/28/2025 ECG COMPLETE ECG COMPLETE ECG 12/01/2023 11:15 AM EDT [facility] Hemoglobin.gastroint est inal.lower [Presence] in Stool by Immunoassay FECAL OCCULT BLOOD TEST Lab Routine Iron deficiency anemia, unspecified iron deficiency anemia type Ordered: 11/25/2021 [facility] Work Phone: Comment on above: Ordered: 11/25/2021 End: 02-10-2024 CHIN SCREENING CHIN SCREENING Radiology Routine Encounter for screening mammogram for breast cancer 1 Occurrences starting 01/11/2023 until 02/10/2024 [facility] Work Phone: Comment on above: 1 Occurrences starti ng 01/11/2023 until 02/10/2024 Patient Education ED Hip Contusi on ED Laceration Scalp Stitches or [place] [facility] Work Phone: Patient referral [facility] Work Phone: Screening mammograph y bi 2-view breast inc cad CHIN SCREENING Radiology Routine Encounter for screening mammogram for breast cancer 11/24/2021 2:35 PM EDT [facility] End: 07-24-2025 XR Lumbar spine 3 Views XR LUMBAR GENERAL 3V AP/LAT/L5-S1 Radiology Routine Acute midline low back pain without sciatica 1 Occurrences starting 06/24/2024 until 07/24/2025 [facility] Comment on above: 1 Occurrences starti ng 06/24/2024 until 07/24/2025 XR Lumbar spine 3 Views XR LUMBA R GENERAL 3V AP/LAT/L5-S1 Radiology Routine Acute midline low back pain without sciatica 06/24/2024 11:51 AM EST [facility] Immunizations Immunization Date Immunization Notes Care Provider Fa tyrel 05-20-2023 tetanus toxoid, redu aureliano diphtheria toxoid, and acellular pertussis vaccine, adsorbed [facility] 04-18-2020 influenza, high dose seasonal, preservative-free Frannie Hendricks MA [facility] 04-18-2020 influenza virus vacc ine, unspecified formulation Humera Lamas MD Work Phone: [facility] 04-02-2018 influenza, high dose seasonal, preservative-free Frannie Hendricks MA [facility] 07-27-2017 pneumococcal polysaccharide vaccine, 23 valent Frannie Hendricks MA [facility] 03-23-2014 influenza, seasonal, injectable Frannie Hendricks MA [facility] Work Phone: 03-20-2013 influenza virus vacc ine, unspecified formulation Frannie Hendricks MA [facility] Work Phone: 03-24-2012 influenza virus vacc ine, unspecified formulation Frannie Hendricks MA [facility] 03-22-2011 influenza virus vacc ine, unspecified formulation Frannie Hendricks MA [facility] 04-19-2005 influenza virus vacc ine, whole virus Frannie Hendricks MA [facility] Work Phone: 03-19-2004 influenza virus vacc ine, whole virus Frannie Hendricks MA [facility] Work Phone: 04-03-2000 diphtheria and tetan us toxoids, adsorbed for pediatric use Frannie Hendricks MA [facility] Work Phone: Payers Date Payer Category Payer Medicare [id number] 2023 Medicare [id number] 2023 Self-pay 2020 Unknown [id number] 2018 Private Health Insurance [facility] [employer] [id number] 2018-Present [phone] [address] [place] [address] O [id number] 2018 Private Health Insurance [id number] 2018 Private Health Insurance [id number] 2016 Medicare MEDICARE MEDICAR E A AND B [id number] 2016-Present [phone] [address] [address] [place] [address] Medicare [id number] 2016 Medicare [id number] 2016 Medicare [id number] Unknown ANTHEM [id number] Unknown [employer] [id number] Unknown [id number] Social History Date Type Detail Facility Start: 05-02-2013 End: 05-24-2022 Tobacco smoking status NHIS Never smoked tobacco [facility] Start: 08-09-2021 End: 06-24-2024 Alcohol intake Current non-drinker of alcohol (finding) [facility] Start: 1950 Sex Assigned At Not on file [facility] Start: 07-01-2020 End: 11-24-2021 Exposure to SARS-CoV-2 (event) Not sure [facility] Start: 05-02-2013 End: 05-24-2022 Tobacco use and exposure Smokeless tobacco non-user [facility] Start: 11-24-2022 End: 12-01-2023 History of Social function [facility] Work Phone: Start: 11-24-2022 End: 12-01-2023 Tobacco use panel [facility] Work Phone: Adult Depression Screening Assessment 0 [facility] Work Phone: Start: 05-20-2023 Tobacco smoking stat us NHIS Unknown if ever smoked [facility] Start: 1950 Sex Assigned At Female [facility] Functional Status Date Assessment Result Facility 12-30-2014 Are you deaf, or do you have serious difficulty hearing No 12/30/2014 3:23 PM EDT Radhika Leal Ma No [facility] 12-30-2014 Are you blind, or do you have serious difficulty seeing, even when wearing glasses No 12/30/2014 3:23 PM EDT Mel Radhika Carranza [facility] 12-30-2014 Do you have serious difficulty walking or climbing stairs No 12/30/2014 3:23 PM EDT Radhika Leal Ma [facility] 12-30-2014 Do you have difficul ty dressing or bathing No 12/30/2014 3:23 PM EDT Radhika Leal Ma [facility] 12-30-2014 Because of a physica l, mental, or emotional condition, do you have difficulty doing errands alone such as visiting a physician's office or shopping No 12/30/2014 3:23 PM EDT Mel Radhika Carranza [facility] Mental Status Date Assessment Result Facility 12-30-2014 Because of a physica l, mental, or emotional condition, do you have serious difficulty concentrating, remembering, or making decisions No 12/30/2014 3:23 PM EDT Mel Radhika Carranza [facility] Clinical Notes 07-08-2013 to 08-20-2024 [...] states will discuss further at next appointment. [facility] 08-20-2024 Miscellaneous Notes Patient notified. [...] Pepper Sousa APRN.CNP documented in this encounter [facility] 08-19-2024 Telephone encounter Note Can [...] know what she prefers. Pepper Sousa APRN.CNP [facility] 08-12-2024 History of Present illness [...] PATIENT PRESENTS WITH AN IMPLANTABLE OR ATTACHED TUBE LANCER: No RADIOLOGY DEPARTMENT: Bone Density PERIPHERAL IV DATA: Not applicable SIGNED BY: RT Joao(R) August 12, 2024 11:08 AM documented in this encounter [facility] 08-12-2024 Note HNO ID: [id number] Author: GRANT DE LA CRUZ RT(R) Service: [...] PATIENT PRESENTS WITH AN IMPLANTABLE OR ATTACHED TUBE LANCER: No RADIOLOGY DEPARTMENT: Bone Density PERIPHERAL IV DATA: Not applicable SIGNED BY: RT Joao(R) August 12, 2024 11:08 AM [facility] 07-01-2024 Telephone encounter Note Notified via [email or web address] that test has been ordered and she can call in to schedule. Elin James MA [facility] 07-01-2024 Miscellaneous Notes Notified via [email or web address] that test has been ordered and she can call in to schedule. Elin James MA Please call pt to set up BMD test. Elin James MA Order for bone density has been placed. She may have this completed at her convenience. Pepper Sousa APRN.CNP Patient returned call and went over results, notes from Pepper Sousa COLOR LABORATORY TECHNICIAN with understanding. Patient is willing to do [...] Pepper Sousa APRN.CNP documented in this encounter [facility] 06-28-2024 Telephone encounter Note Please call pt to set up BMD test. Elin James MA [facility] 06-28-2024 Telephone encounter Note Order for bone density has been placed. She may have this completed at her convenience. Pepper Sousa APRN.CNP [facility] 06-28-2024 Instructions Pepper Sousa APRN.CNP [...] usual activities immediately. documented in this encounter [facility] 06-28-2024 Telephone encounter Note Patient returned call and went over results, notes from Pepper Sousa COLOR LABORATORY TECHNICIAN with understanding. Patient is willing to do the bone density test. [facility] 06-27-2024 Telephone encounter Note TC to pt. LM to call office, ask for triage nurse to get results. Amirah Gutiérrez LPN [facility] 06-27-2024 Telephone encounter Note Can [...] bone density testing. Thank you Pepper Sousa APRN.FORENSIC ANALYST [facility] 06-24-2024 History of Present illness [...] PATIENT PRESENTS WITH AN IMPLANTABLE OR ATTACHED TUBE LANCER: No RADIOLOGY DEPARTMENT: General X-ray: Exam(s) Completed: Spine X-Ray(s): Lumbar AP / LAT / L5-S1 PERIPHERAL IV DATA: Not applicable SIGNED BY: RT Brittany(Nazanin) June 24, 2024 11:36 AM documented in this encounter [facility] 06-24-2024 Note HNO ID: [id number] Author: ARTUR MURILLO RT(Nazanin) Service: ? Author Type: Tap And Die Maker Technician Type: Progress Notes Filed: 06/24/2024 11:50 Note [...] PATIENT PRESENTS WITH AN IMPLANTABLE OR ATTACHED TUBE LANCER: No RADIOLOGY DEPARTMENT: General X-ray: Exam(s) Completed: Spine X-Ray(s): Lumbar AP / LAT / L5-S1 PERIPHERAL IV DATA: Not applicable SIGNED BY: RT Brittany(R) June 24, 2024 11:36 AM [facility] 06-24-2024 Instructions Pepper Sousa APRN.VIVIAN - 06/24/2024 11:18 AM EST Get xray completed Get repeat fasting labs completed in 6 months prior to next visit Continue to take all medication as prescribed If knee pain does not improve follow up with Orthopedics. Due for Colonoscopy this year. Follow up in 6 months or sooner as needed. documented in this encounter [facility] 06-24-2024 History of Present illness Narrative This is a 74 year old female who presents today with: Patient presents with: 6 Month Exam HISTORY OF PRESENT ILLNESS: Calista Cannon is a 74 year old female. Patient presents with: 6 Month Exam 6 month follow up On going back pain: Seems to come and go. 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 Pain is [...] and Flexeril prn. Has previously seen with [facility]. Has been told in the past [...] Lymph 1.00 - 4.00 k/uL 0.96 (L) [place]% % 9.6 Abs [place] <0.87 k/uL 0.39 Eosin% % 1.5 Abs [...] APRN.VIVIAN This note was partially generated using [employer] voice recognition system. Note was reviewed for accuracy. There may be minor misspellings or grammar miscues with [employer] voice recognition. documented in this encounter [facility] 06-24-2024 Note HNO ID: [id number] Author: PEPPER SOUSA APRN.CNP Service: ? Author [...] come and go. 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 Pain is [...] and Flexeril prn. Has previously seen with [facility]. Has been told in the past [...] color, texture, turgor (more content not included)... [facility] 04-01-2024 Telephone encounter Note Pt returned call and given provider's message below with verbalized understanding. [facility] 04-01-2024 Miscellaneous Notes Pt returned [...] Pepper Sousa APRN.CNP documented in this encounter [facility] 04-01-2024 Telephone encounter Note Left a message for pt to call the office and ask to speak to a nurse. Orquidea Washington LPN [facility] 04-01-2024 Telephone encounter Note Can you please call the patient and let her know that her mammogram was negative for any malignancy. She will be due for for repeat screening in 1 year. Thank you. Pepper Sousa APRN.CNP [facility] 03-27-2024 History of Present illness [...] PATIENT PRESENTS WITH AN IMPLANTABLE OR ATTACHED TUBE LANCER: No RADIOLOGY DEPARTMENT: Mammography PERIPHERAL IV DATA: Not applicable SIGNED BY: Kyle Lozoya March 27, 2024 10:04 AM documented in this encounter [facility] 03-27-2024 Note HNO ID: [id number] Author: JUDY OAKES Mammo Tech Service: ? Author Type: Tap And Die Maker Technician Type: Progress Notes Filed: 03/27/2024 10:27 Note [...] PATIENT PRESENTS WITH AN IMPLANTABLE OR ATTACHED TUBE LANCER: No RADIOLOGY DEPARTMENT: Mammography PERIPHERAL IV DATA: Not applicable SIGNED BY: Kyle Lozoya March 27, 2024 10:04 AM [facility] 12-01-2023 Instructions Pepper Sousa APRN.VIVIAN - 12/01/2023 [...] sooner as needed. documented in this encounter [facility] 12-01-2023 History of Present illness [...] her off the floor. 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 Has not had any other episodes. Chronic [...] and Flexeril prn. Has previously seen with [facility], but not in quite some time. [...] Gait normal. Sensation grossly intact. Latest Ref [facility] 11/22/2023 WBC 3.70 - 11.00 [...] Abs Lymph 1.00 - 4.00 k/uL 1.30 [place]% % 9.8 Abs [place] <0.87 k/uL 0.47 Eosin% % 1.5 Abs [...] APRN.VIVIAN This note was partially generated using [employer]iant voice recognition system. Note was reviewed for accuracy. There may be minor misspellings or grammar miscues with [employer] voice recognition. documented in this encounter [facility] 12-01-2023 Note HNO ID: [id number] Author: PEPPER SOUSA APRN.CNP Service: ? Author [...] her off the floor. 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 Has not had any other episodes. Chronic [...] and Flexeril prn. Has previously seen with [facility], but not in quite some time. [...] acute distress, well-hydrated, (more content not included)... [facility] 05-30-2023 Ria Porter Ma 05/30/2023 10:18 AM EST Increase Levothyroxine to 88 mcg once daily. A new prescription has been sent to [facility]. Once received start on this dosage. Continue current dosage at this time. For tailbone pain, use Tylenol and heat on the area. documented in this encounter [facility] 05-30-2023 History of Present illness Narrative Chief Complaint Patient presents with: Hospital F/U: F/U 6 Month HPI Calista Cannon is a 73 year old female who presents here today for a hospital follow up. Pt here today for a [facility] hospital follow up and 6 month [...] for handicap placard renewals. Pt presented to [facility] ED on 05/20/23 for a fall. [...] 0.95 (L) Monocytes % 05/26/2023 13.8 Abs [place] 05/26/2023 0.43 Eosinophils % 05/26/2023 0.3 Abs [...] Past Histories independently gathered by the clinical ground support agent and the remaining scribed note accurately describes [...] Ria Petit Ma documented in this encounter [facility] 05-22-2023 Miscellaneous Notes Pt notified. Elin James Ma OK to refill now and keep appt on the Hmuera Lamas MD Pt calling in as she [...] been filled in a long time. Called [facility] home delivery to confirm pt's med list and who ordered medications. She does not need refills yet on her Synthroid, iron and Levbid. The other medications she is requesting are Cyclobenzaprine, Meloxicam, Colestipol, Lomotil and Imodium. Per pharmacist at [facility], pt has refills on the Meloxicam as [...] of celiac and colitis and saw a international logistics manager in the past but stopped going. Pt's next appt is 05/30 for 40 mins. Please confirm if want to fill meds now or discuss with pt at upcoming appt. documented in this encounter [facility] 06-21-2022 Miscellaneous Notes PATIENT NOTIFIED [...] Ronit Steve RN documented in this encounter [facility] 06-16-2022 Instructions Pepper Sousa APRN.VIVIAN - 06/16/2022 11:46 AM EST Start Augmentin, take with food. Continue with NSAIDS, antiinflammatories as needed for pain or fever. Do not stick anything into the ear May use warm or cool compress at the base of the jaw to help with pain. Follow up as needed. documented in this encounter [facility] 06-16-2022 History of Present illness [...] APRN.VIVIAN This note was partially generated using [employer] recognition system. Note was reviewed for accuracy. There may be minor misspellings or grammar miscues with [employer]iant voice recognition. documented in this encounter [facility] 05-25-2022 Miscellaneous Notes Letter mailed [...] Humera Lamas MD documented in this encounter [facility] 05-24-2022 History of Present illness [...] Past Histories independently gathered by the clinical ground support agent and the remaining scribed note accurately describes [...] Ria Petit Ma documented in this encounter [facility] 04-21-2022 Miscellaneous Notes OK to [...] Cande Wolfe LPN documented in this encounter [facility] 04-21-2022 Miscellaneous Notes Images from the original note were not included. Patient calling asking for lab results from February, she never heard any results. She does not have my chart. Contains abnormal data IRON + TIBC Order: [id number] Status: Final result Visible to patient: No (inaccessible in [employer]) Dx: Iron deficiency anemia, unspecified i... 0 Result Notes 1 Patient Communication Component Ref Range & Units 1 mo ago 3 mo ago 5 mo ago Iron 41 - 186 ug/dL 25 Low 32 Low 23 Low TIBC 232 - 386 ug/dL 400 High 403 High 437 High Transferrin Saturation 15.0 - 57.0 % 6.3 Low 7.9 Low 5 Low R Resulting Agency [facility] CCM Specimen Collected: 03/17/22 12:03 [...] because no one can access it in [employer]. Last viewed in [employer]: 03/19/2022 6:57 PM By: Calista Cannon Routing History Priority Sent On From To Message Type 03/17/2022 6:58 PM Lab, Background User Humera Lamas MD Results View [employer] IRON + TIBC (Order #[id number]) on 03/17/22 CAP/CLIA/Joint Commission Regulatory Result Report IRON + TIBC (Order #[id number]) on 03/17/22 IRON + TIBC: Patient Communication [...] Lamas with understanding. documented in this encounter [facility] 03-08-2022 Miscellaneous Notes Patient returns [...] provider. Thank you. documented in this encounter [facility] 11-25-2021 Miscellaneous Notes Pt notified of results via [email or web address]. Elin James Ma Please notify patient that her labs show that her anemia has improved a little, but her iron level is low. I would suggest starting on an iron supplement once daily, and check stools for blood. Recheck CBC and iron levels in one month. Humera Lamas MD documented in this encounter [facility] 11-25-2021 Miscellaneous Notes November 25, 2021 PID: [id number] Calista Cannon [address] [place] [address] Dear Tyrell Catarino, We are pleased to [...] report will be kept on file at [facility] as part of your permanent medical record and are available for your continuing care. Thank you for allowing us to help in meeting your health care needs. Sincerely, Dr. Choudhury Interpreting Radiologist [facility] (Normal over 40) documented in this encounter [facility] 11-24-2021 History of Present illness [...] DATA: Not applicable SIGNED BY: Judy Oakes Artimi November 24, 2021 1:58 PM documented in this encounter [facility] 11-20-2021 History of Present illness [...] Lymph% 10/28/2021 23.6 Abs Lymph 10/28/2021 1.10 [place]% 10/28/2021 9.2 Abs [place] 10/28/2021 0.43 Eosin% 10/28/2021 2.1 Abs Eosin [...] Humera Lamas MD documented in this encounter [facility] 09-14-2021 History of Present illness [...] 2021 9:59 AM documented in this encounter [facility] 07-31-2020 History of Present illness [...] 2020 12:55 PM documented in this encounter [facility] 07-08-2013 History of Past i llness Narrative Problem Noted Date Resolved Date Trigger middle finger of right hand 07/08/2013 05/05/2016 Vitamin D deficiency 06/06/2011 05/05/2016 Esophagitis, unspecified 05/18/2007 016 Disorders of bursae and tend ons in shoulder region, unspecified 06/14/2005 05/05/2016 Major depressive disorder, single episode, unspe cified 06/28/2017 documented as of this encounter (statuses as of 09/14/2021) [facility] History of Past illness Narrative* Problem Noted Date Resolved Date Trigger middle finger of right hand 07/08/2013 05/05/2016 Vitamin D deficiency 06/06/2011 05/05/2016 Esophagitis, unspecified 05/18/2007 016 Disorders of bursae and tend ons in shoulder region, unspecified 06/14/2005 05/05/2016 Major depressive disorder, single episode, unspe cified 06/28/2017 documented as of this encounter (statuses as of 11/20/2021) [facility] History of Past illness Narrative* Problem Noted Date Resolved Date Trigger middle finger of right hand 07/08/2013 05/05/2016 Vitamin D deficiency 06/06/2011 05/05/2016 Esophagitis, unspecified 05/18/2007 016 Disorders of bursae and tend ons in shoulder region, unspecified 06/14/2005 05/05/2016 Major depressive disorder, single episode, unspe cified 06/28/2017 documented as of this encounter (statuses as of 11/25/2021) [facility] of Past illness Narrative* Problem Noted Date Resolved Date Trigger middle finger of right hand 07/08/2013 05/05/2016 Vitamin D deficiency 06/06/2011 05/05/2016 Esophagitis, unspecified 05/18/2007 016 Disorders of bursae and tend ons in shoulder region, unspecified 06/14/2005 05/05/2016 Major depressive disorder, single episode, unspe cified 06/28/2017 documented as of this encounter (statuses as of 11/25/2021) [facility] of [facility] illness Narrative* Problem Noted Date Resolved Date Trigger middle finger of right hand 07/08/2013 05/05/2016 Vitamin D deficiency 06/06/2011 05/05/2016 Esophagitis, unspecified 05/18/2007 016 Disorders of bursae and tend ons in shoulder region, unspecified 06/14/2005 05/05/2016 Major depressive disorder, single episode, unspe cified 06/28/2017 documented as of this encounter (statuses as of 11/27/2021) [facility] of [facility] Narrative* Problem Noted Date Resolved Date Trigger middle finger of right hand 07/08/2013 05/05/2016 Vitamin D deficiency 06/06/2011 05/05/2016 Esophagitis, unspecified 05/18/2007 016 Disorders of bursae and tend ons in shoulder region, unspecified 06/14/2005 05/05/2016 Major depressive disorder, single episode, unspe cified 06/28/2017 documented as of this encounter (statuses as of 03/08/2022) [facility] of [facility] Narrative* Problem Noted Date Resolved Date Trigger middle finger of right hand 07/08/2013 05/05/2016 Vitamin D deficiency 06/06/2011 05/05/2016 Esophagitis, unspecified 05/18/2007 016 Disorders of bursae and tend ons in shoulder region, unspecified 06/14/2005 05/05/2016 Major depressive disorder, single episode, unspe cified 06/28/2017 documented as of this encounter (statuses as of 04/21/2022) [facility] of [facility] Narrative* Problem Noted Date Resolved Date Trigger middle finger of right hand 07/08/2013 05/05/2016 Vitamin D deficiency 06/06/2011 05/05/2016 Esophagitis, unspecified 05/18/2007 016 Disorders of bursae and tend ons in shoulder region, unspecified 06/14/2005 05/05/2016 Major depressive disorder, single episode, unspe cified 06/28/2017 documented as of this encounter (statuses as of 04/21/2022) [facility] Narrative* Problem Noted Date Resolved Date Trigger middle finger of right hand 07/08/2013 05/05/2016 Vitamin D deficiency 06/06/2011 05/05/2016 Esophagitis, unspecified 05/18/2007 016 Disorders of bursae and tend ons in shoulder region, unspecified 06/14/2005 05/05/2016 Major depressive disorder, single episode, unspe cified 06/28/2017 documented as of this encounter (statuses as of 05/24/2022) [facility] of [facility] Narrative* Problem Noted Date Resolved Date Trigger middle finger of right hand 07/08/2013 05/05/2016 Vitamin D deficiency 06/06/2011 05/05/2016 Esophagitis, unspecified 05/18/2007 016 Disorders of bursae and tend ons in shoulder region, unspecified 06/14/2005 05/05/2016 Major depressive disorder, single episode, unspe cified 06/28/2017 documented as of this encounter (statuses as of 05/25/2022) [facility] N[facility]ative* Problem Noted Date Resolved Date Trigger middle finger of right hand 07/08/2013 05/05/2016 Vitamin D deficiency 06/06/2011 05/05/2016 Esophagitis, unspecified 05/18/2007 016 Disorders of bursae and tend ons in shoulder region, unspecified 06/14/2005 05/05/2016 Major depressive disorder, single episode, unspe cified 06/28/2017 documented as of this encounter (statuses as of 06/22/2022) [facility] Narrative* Problem Noted Date Resolved Date Trigger middle finger of right hand 07/08/2013 05/05/2016 Vitamin D deficiency 06/06/2011 05/05/2016 Esophagitis, unspecified 05/18/2007 016 Disorders of bursae and tend ons in shoulder region, unspecified 06/14/2005 05/05/2016 Major depressive disorder, single episode, unspe cified 06/28/2017 documented as of this encounter (statuses as of 06/23/2022) [facility] Narrative* Problem Noted Date Diagnosed Date Resolved Date Trigger middle finger of right hand 07/08/2013 05/05/2016 Vitamin D deficiency 06/06/2011 016 Esophagitis, unspecified 05/18/2007 Disorders of bursae and tend ons in shoulder region, unspecified 06/14/2005 05/05/2016 Major depressive disorder, s shiela episode, unspecified 06/28/2017 documented as of this encounter (statuses as of 01/16/2023) [facility] Narrative* Problem Noted Date Diagnosed Date Resolved Date Trigger middle finger of right hand 07/08/2013 05/05/2016 Vitamin D deficiency 06/06/2011 016 Esophagitis, unspecified 05/18/2007 Disorders of bursae and tend ons in shoulder region, unspecified 06/14/2005 05/05/2016 Major depressive disorder, s shiela episode, unspecified 06/28/2017 documented as of this encounter (statuses as of 05/23/2023) [facility] Narrative* Problem Noted Date Diagnosed Date Resolved Date Trigger middle finger of right hand 07/08/2013 05/05/2016 Vitamin D deficiency 06/06/2011 016 Esophagitis, unspecified 05/18/2007 Disorders of bursae and tend ons in shoulder region, unspecified 06/14/2005 05/05/2016 Major depressive disorder, s shiela episode, unspecified 06/28/2017 documented as of this encounter (statuses as of 05/31/2023) [facility] note* Diagnosis Hypothyroidism, unspecified type- Primary Hyperlipidemia, unspecified hyperlipidemia type Celiac disease Anemia, unspecified type Weight gain Abnormal weight gain Vitamin D deficiency Unspecified vitamin D deficiency documented in this encounter [facility] note* Diagnosis Encounter for screening mammogram for breast cancer documented in this encounter [facility] note* Diagnosis Iron deficiency anemia, unspecified iron deficiency anemia type- Primary documented in this encounter [facility] note* Diagnosis Iron deficiency anemia, unspecified iron deficiency anemia type documented in this encounter [facility] note* Diagnosis Iron deficiency anemia, unspecified iron deficiency anemia type- Primary Hypothyroidism, unspecified type Hyperlipidemia, unspecified hyperlipidemia type Chronic pain of both knees Collagenous colitis Other and unspecified noninfectious gastroenteritis and colitis Vitamin D deficiency Unspecified vitamin D deficiency documented in this encounter [facility] note* Diagnosis Celiac disease- Primary Hypothyroidism, unspecified type Hyperlipidemia, unspecified hyperlipidemia type Vitamin D deficiency Unspecified vitamin D deficiency Anemia, unspecified type documented in this encounter [facility] note* Diagnosis Acute otitis media, unspecified otitis media type- Primary documented in this encounter [facility] note* Diagnosis Encounter for screening mammogram for breast cancer documented in this encounter [facility] noteNo assessment information availableWFlower [facility] Work Phone: Evaluation note* Diagnosis Chronic pain of both knees Collagenous colitis Other and unspecified noninfectious gastroenteritis and colitis Celiac disease documented in this encounter [facility] note* Diagnosis Hypothyroidism, unspecified type- Primary Hospital discharge follow-up Other follow-up examination Encounter for staple removal Encounter for removal of sutures Celiac disease Collagenous colitis Other and unspecified noninfectious gastroenteritis and colitis Hyperlipidemia, unspecified hyperlipidemia type Iron deficiency anemia, unspecified iron deficiency anemia type Chronic pain of both knees Pain in sacrum documented in this encounter [facility] note* Diagnosis Other chest pain- Primary Celiac disease Hypothyroidism, unspecified type Hyperlipidemia, unspecified hyperlipidemia type Iron deficiency anemia, unspecified iron deficiency anemia type Chronic pain of both knees Vitamin D deficiency Unspecified vitamin D deficiency Encounter for screening mammogram for malignant neoplasm of breast Other screening mammogram [facility] Diagnosis Encounter for screening mammogram for malignant neoplasm of breast Other screening mammogram documented in this encounter [facility] note* Diagnosis Acute midline low back pain without sciatica- Primary Collagenous colitis Other and unspecified noninfectious gastroenteritis and colitis Celiac disease Hypothyroidism, unspecified type Hyperlipidemia, unspecified hyperlipidemia type Iron deficiency anemia, unspecified iron deficiency anemia type Chronic pain of both knees documented in this encounter [facility] note* Diagnosis Acute midline low back pain without sciatica documented in this encounter [facility] note* Diagnosis Asymptomatic postmenopausal status- Primary documented in this encounter [facility] note* Diagnosis Asymptomatic postmenopausal status documented in this encounter [facility] for referral (narrative)* Diagnostic Procedure Only (Routine) - Pending Review Specialty Diagnoses / Procedures Referred By Cassius szymanski Referred To Contact [facility] Diagnoses Encounter for screening mammogram for breast cancer Procedures CHIN SCREENING SCREENING MAMMOGRAPHY BI 2-VIEW BREAST INC Humera Perales MD [address] [place] [address] [facility] [address] [place] [address] Referral ID Status Reason Start Date Expiration Date Visits Requested Visits Authorized [id number] Pending Review Auto-Generat ed Referral 01/11/2023 02/10/[address] [facility] for referral (narrative)* Diagnostic Procedure Only (Routine) - Pending Review Specialty Diagnoses / Procedures Referred By Cassius szymanski Referred To Contact [facility] Diagnoses Encounter for screening mammogram for malignant neoplasm of breast Procedures CHIN SCREENING W HEIDI SCREENING DIGITAL BREAST TOMOSYNTHESIS BI SCREENING MAMMOGRAPHY BI 2-VIEW BREAST INC Pepper Poe APRN.CNP [address] [place] [address] [facility] [address] [place] [address] Referral ID Status Reason Start Date Expiration Date Visits Requested Visits Authorized [id number] Pending Review Auto-Generat ed Referral 12/01/2023 12/30/2024 1 1 * Outpatient Procedure (Routine) - Pending Review Specialty Diagnoses / Procedures Referred By Contac t Referred To [facility] Diagnoses Other chest pain Procedures ECG COMPLETE ECG ROUTINE ECG W/LEAST 12 LDS W/I&R Pepper Sousa APRN.FORENSIC ANALYST [address] [place] [address] [facility] [place] [address] [place] [address] Referral ID Status Reason Start Date Expiration Date Visits Requested Visits Authorized [id number] Pending Review Auto-Generat ed Referral 12/01/2023 11/30/[address] [facility] for referral (narrative)* Diagnostic Procedure Only (Routine) - Closed Specialty Diagnoses / Procedures Referred By Contac t Referred To Contact [facility] Diagnoses Acute midline low back pain without sciatica Procedures XR LUMBAR GENERAL 3V AP/LAT/L5-S1 RADEX SPINE LUMBOSACRAL 2/3 VIEWS Pepper Sousa APRN.FORENSIC ANALYST [address] [place] [address] [place] [address] Referral ID Status Reason Start Date Expiration Date V isits Requested Visits Authorized [id number] Closed Auto-Generate d Referral 06/24/2024 07/24/[address] [facility] for referral (narrative)* Diagnostic Procedure Only (Routine) - New Request Specialty Diagnoses / Procedures Referred By Contac t Referred To Contact [facility] Diagnoses Asymptomatic postmenopausal status Procedures DXA-AXIAL SKELETON DXA BONE DENSITY STUDY 1/> SITES AXIAL SKEL Pepper Sousa APRN.FORENSIC ANALYST [address] [place] [address] [place] [address] Referral ID Status Reason Start Date Expiration Date Visits Requested Visits Authorized [id number] New Request Auto-Generat ed Referral 06/28/2024 07/28/[address] [facility] for visit Narrative* Diagnostic Procedure Only (Routine) - Closed Specialty Diagnoses / Procedures Referred By Contac t Referred To Contact [facility] Diagnoses Encounter for screening mammogram for malignant neoplasm of breast Procedures CHIN SCREENING W HEIDI SCREENING DIGITAL BREAST TOMOSYNTHESIS BI SCREENING MAMMOGRAPHY BI 2-VIEW BREAST INC CAD Pepper Sousa APRN.FORENSIC ANALYST [address] [place] [address] [facility] [address] [place] [address] Referral ID Status Reason Start Date Expiration Date V isits Requested Visits Authorized [id number] Closed Auto-Generate d Referral 12/01/2023 12/30/[address] [facility] for visit Narrative* Diagnostic Procedure Only (Routine) - Closed Specialty Diagnoses / Procedures Referred By Contac t Referred To Contact XR IMAGING Diagnoses Acute midline low back pain without sciatica Procedures XR LUMBAR GENERAL 3V AP/LAT/L5-S1 RADEX SPINE LUMBOSACRAL 2/3 VIEWS Pepper Sousa, SCOT.FORENSIC ANALYST [address] [place] [address] [place] [address] Referral ID Status Reason Start Date Expiration Date V isits Requested Visits Authorized [id number] Closed Auto-Generate d Referral 06/24/2024 07/24/[address] [facility] for visit Narrative* Diagnostic Procedure Only (Routine) - Closed Specialty Diagnoses / Procedures Referred By Contac t Referred To Contact X[facility] IMAG[facility] Diagnoses Asymptomatic postmenopausal status Procedures DXA-AXIAL SKELETON DXA BONE DENSITY STUDY 1/> SITES AXIAL SKEL Pepper Sousa, SCOT.FORENSIC ANALYST [address] [place] [address] Phone: tel: fax: [place] [address] Referral ID Status Reason Start Date Expiration Date V isits Requested Visits Authorized [id number] Closed Auto-Generate d Referral 06/28/2024 07/28/2025 1 1 [facility] Chief Complaint and Reason for Visit Chief Complaint FALL, HEAD INJURY Advance Directives Advance Directive Response Recorded Date/ Time Living Will No May 20 9:29pm Power of [employer] Farm[employer] Coordinator No May 20, 2023 9:29pm Summary Purpose [...] or prosecute any alcohol or drug abuse patient.[facility] the event this information is protected by the Federal Confidentiality of Alcohol and Drug Abuse Patient Records regulations: The Federal rules restrict any use of the information to criminally investigate or prosecute any alcohol or drug abuse patient.[facility] the event this information is protected by the Federal Confidentiality of Alcohol and Drug Abuse Patient Records regulations: The Federal rules restrict any use of the information to criminally investigate or prosecute any alcohol or drug abuse patient.[facility] the event this information is protected by the Federal Confidentiality of Alcohol and Drug Abuse Patient Records regulations: The Federal rules restrict any use of the information to criminally investigate or prosecute any alcohol or drug abuse patient.[facility] the event this information is protected by the Federal Confidentiality of Alcohol and Drug Abuse Patient Records regulations: The Federal rules restrict any use of the information to criminally investigate or prosecute any alcohol or drug abuse patient.[facility] the event this information is protected by the Federal Confidentiality of Alcohol and Drug Abuse Patient Records regulations: The Federal rules restrict any use of the information to criminally investigate or prosecute any alcohol or drug abuse patient.[facility] the event this information is protected by the Federal Confidentiality of Alcohol and Drug Abuse Patient Records regulations: The Federal rules restrict any use of the information to criminally investigate or prosecute any alcohol or drug abuse patient.[facility] Center[facility] the event this information is protected by the Federal Confidentiality of Alcohol and Drug Abuse Patient Records regulations: The Federal rules restrict any use of the information to criminally investigate or prosecute any alcohol or drug abuse patient.[facility] Center[facility] the event this information is protected by the Federal Confidentiality of Alcohol and Drug Abuse Patient Records regulations: The Federal rules restrict any use of the information to criminally investigate or prosecute any alcohol or drug abuse patient.[facility] the event this information is protected by the Federal Confidentiality of Alcohol and Drug Abuse Patient Records regulations: The Federal rules restrict any use of the information to criminally investigate or prosecute any alcohol or drug abuse patient.[facility] Center[facility] the event this information is protected by the Federal Confidentiality of Alcohol and Drug Abuse Patient Records regulations: The Federal rules restrict any use of the information to criminally investigate or prosecute any alcohol or drug abuse patient.[facility] Center[facility] the event this information is protected by the Federal Confidentiality of Alcohol and Drug Abuse Patient Records regulations: The Federal rules restrict any use of the information to criminally investigate or prosecute any alcohol or drug abuse patient.[facility] Center[facility] the event this information is protected by the Federal Confidentiality of Alcohol and Drug Abuse Patient Records regulations: The Federal rules restrict any use of the information to criminally investigate or prosecute any alcohol or drug abuse patient.[facility] Center[facility] the event this information is protected by the Federal Confidentiality of Alcohol and Drug Abuse Patient Records regulations: The Federal rules restrict any use of the information to criminally investigate or prosecute any alcohol or drug abuse patient.[facility] Center[facility] the event this information is protected by the Federal Confidentiality of Alcohol and Drug Abuse Patient Records regulations: The Federal rules restrict any use of the information to criminally investigate or prosecute any alcohol or drug abuse patient.[facility] Center[facility] the event this information is protected by the Federal Confidentiality of Alcohol and Drug Abuse Patient Records regulations: The Federal rules restrict any use of the information to criminally investigate or prosecute any alcohol or drug abuse patient.[facility] Center[facility] the event this information is protected by the Federal Confidentiality of Alcohol and Drug Abuse Patient Records regulations: The Federal rules restrict any use of the information to criminally investigate or prosecute any alcohol or drug abuse patient.[facility] Center[facility] the event this information is protected by the Federal Confidentiality of Alcohol and Drug Abuse Patient Records regulations: The Federal rules restrict any use of the information to criminally investigate or prosecute any alcohol or drug abuse patient.[facility] Center[facility] the event this information is protected by the Federal Confidentiality of Alcohol and Drug Abuse Patient Records regulations: The Federal rules restrict any use of the information to criminally investigate or prosecute any alcohol or drug abuse patient.[facility] CenterIn the event this information is protected by the Federal Confidentiality of Alcohol and Drug Abuse Patient Records regulations: The Federal rules restrict any use of the information to criminally investigate or prosecute any alcohol or drug abuse patient.[facility] Center[facility] the event this information is protected by the Federal Confidentiality of Alcohol and Drug Abuse Patient Records regulations: The Federal rules restrict any use of the information to criminally investigate or prosecute any alcohol or drug abuse patient.[facility] Center[facility] the event this information is protected by the Federal Confidentiality of Alcohol and Drug Abuse Patient Records regulations: The Federal rules restrict any use of the information to criminally investigate or prosecute any alcohol or drug abuse patient.[facility] Center[facility] the event this information is protected by the Federal Confidentiality of Alcohol and Drug Abuse Patient Records regulations: The Federal rules restrict any use of the information to criminally investigate or prosecute any alcohol or drug abuse patient.[facility] Center[facility] the event this information is protected by the Federal Confidentiality of Alcohol and Drug Abuse Patient Records regulations: The Federal rules restrict any use of the information to criminally investigate or prosecute any alcohol or drug abuse patient.[facility] Reason for Visit (unrecogniz ed [...] Care Teams (unrecognized sec tion and content) Offset Second Press Operator Relationship Specialty Start Date End Date Humera Lamas MD [address] [place], [place] [id number] PCP - General Family Practice 02/03/21 Offset Second Press Operator Relationship Specialty Start Date End Date Humera Lamas MD [address] [place], [place] [id number] PCP - General Family Practice 02/03/21 Offset Second Press Operator Relationship Specialty Start Date End Date Humera Lamas MD [address] [facility] [address] PCP - General Family Practice 02/03/21 Offset Second Press Operator Relationship Specialty Start Date End Date Humera Lamas MD [address] [facility] [address] PCP - General Family Practice 02/03/21 Offset Second Press Operator Relationship Specialty Start Date End Date Humera Lamas MD [address] [facility] [address] PCP - General Family Medicine 02/03/21 Offset Second Press Operator Relationship Specialty Start Date End Date Humera Lamas MD [address] [facility] [address] PCP - General Family Medicine 02/03/21 Offset Second Press Operator Relationship Specialty Start Date End Date Humera Lamas MD [address] [facility] [address] PCP - General Family Medicine 02/03/21 Offset Second Press Operator Relationship Specialty Start Date End Date Humera Lamas MD [address] [facility] [address] PCP - General Family Medicine 02/03/21 Offset Second Press Operator Relationship Specialty Start Date End Date Humera Lamas MD [address] [facility] [address] PCP - General Family Medicine 02/03/21 Offset Second Press Operator Relationship Specialty Start Date End Date Humera Lamas MD [address] [facility] [address] PCP - General Family Medicine 02/03/21 Offset Second Press Operator Relationship Specialty Start Date End Date Humera Lamas MD [address] [facility] [address] PCP - General Family Medicine 02/03/21 Team Status: Active Member Role Status Dates Dr. Mark Waters III, MD Family Provider Active Dr. Humera Lamas MD Primary Care Provider Active Team Status: Inactive Member Role Status Dates Dr. Humera Lmaas MD Primary Care Provider Active Dr. Liane Woody MD Emergency Provider Active Offset Second Press Operator Relationship Specialty Start Date End Date Humera Lamas MD [address] [facility] [address] PCP - General Family Medicine 02/03/21 Offset Second Press Operator Relationship Specialty Start Date End Date Humera Lamas MD [address] [facility] [address] PCP - General Family Medicine 02/03/21 Offset Second Press Operator Relationship Specialty Start Date End Date Humera Lamas MD [address] [facility] [address] PCP - General Family Medicine 02/03/21 Offset Second Press Operator Relationship Specialty Start Date End Date Mark Waters III, MD NO [place] PCP - General 04/09/02 02/02/21 Offset Second Press Operator Relationship Specialty Start Date End Date Humera Lamas MD [address] [facility] [address] PCP - General Family Medicine 02/03/21 Offset Second Press Operator Relationship Specialty Start Date End Date Humera Lamas MD [address] [facility] [address] PCP - General Family Medicine 02/03/21 Offset Second Press Operator Relationship Specialty Start Date End Date Humera Lamas MD [address] [facility] [address] PCP - General Family Medicine 02/03/21 Pepper Sousa APRN.FORENSIC ANALYST [address] [facility] [address] Prison Classification Counselor Family Medicine 05/26/24 Alessio Corral APRN.FORENSIC ANALYST [address] [facility] [address] Prison Classification Counselor Family Medicine 06/04/24 Offset Second Press Operator Relationship Specialty Start Date End Date Humera Lamas MD [address] [facility] [address] PCP - General Family Medicine 02/03/21 Pepper Sousa APRN.FORENSIC ANALYST [address] [place] [address] Prison Classification Counselor Family Medicine 05/26/24 Alessio Corral APRN.FORENSIC ANALYST [address] [facility] [address] [facility] 06/[facility] Offset Second Press Operator Relationship Specialty Start Date End Date Humera Lamas MD [address] [facility] [address] PCP - General Family Medicine 02/03/21 Pepper Sousa APRN.FORENSIC ANALYST [address] [facility] [address] Prison Classification Counselor Family Medicine 05/26/24 Alessio Corral APRN.FORENSIC ANALYST [address] [facility] [address] Prison Classification Counselor Family Medicine 06/04/24 Offset Second Press Operator Relationship Specialty Start Date End Date Humera Lamas MD [address] [facility] [address] PCP - General [facility] Medicine 02/03/21 Pepper Sousa APRN.FORENSIC ANALYST [address] [facility] [address] [facility] 05/26/24 Alessio Corral APRN.FORENSIC ANALYST [address] [facility] [address] [facility] 06/04/24 Offset Second Press Operator Relationship Specialty Start Date End Date Humera Lamas MD [address] [facility] [address] PCP - [facility] Medicine 02/03/21 Pepper Sousa APRN.FORENSIC ANALYST [address] [facility] [address] [facility] 05/26/24 Alessio Corral APRN.FORENSIC ANALYST [address] [facility] [address] [facility] 06/04/24 Goals (unrecognized section and content) Goals may be documented in a n alternate section INFORMATION SOURCE (unrecogn ized section and content) DATE CREATED AUTHOR 05/27/2023 [facility] DATE CREATED AUTHOR AUTHOR'S LARA ATADRIAN 08/13/2024 [facility] FOR RECORDS PERTAINING TO PATIENTS WHO ARE [...] BE BASED ON THE PRIMARY CLINICAL RECORDS. [facility]. provides no warranty or guarantee of the accuracy or completeness of information in this document.
== END | disposition home or self-care (01) ==
LOC: VSLAB 12:06
PROVIDERS: PCP Nurse Practitioner Family; Visit Provider Nurse Practitioner Family
DX: D50.9 Iron deficiency anemia, unspecified (principal); E03.9 Hypothyroidism, unspecified; E78.5 Hyperlipidemia, unspecified
CPT/HCPCS: 36415; 80053; 80061; 82728; 83540; 83550; 84439; 84443; 85025

== ENCOUNTER → 2025-01-16 | Outpatient (CLI) | payer MEDICARE, OTHER, SELFPAY ==
[2025-01-16 12:19] LABS: Hematocrit 34.6 % (37-47); Hemoglobin 11.2 g/dL (12.0-15.0); Immature Granulocytes Count 0.030 X10^3/uL (0.0-0.0); Mean Corp Hgb Conc 32.4 g/dL (32-36); Mean Corpuscular Volume 88.9 fL (81-99); Mean Platelet Vol. 9.0 fl (6.2-12.0); NRBC Flagged by Analyzer 0 % (0-5); Platelet Count 506 K/mm3 (150-450); RBC Distribution Width CV 14.0 % (11.6-14.6); RBC Distribution Width SD 45.1 fl (35.1-43.9); Red Blood Count 3.89 M/mm3 (4.2-5.4); White Blood Count 6.4 K/mm3 (4.4-11.0)
[2025-01-16 13:11] LABS: AST(SGOT) 18 U/L (<=31); Alanine Aminotransfer ALT/SGPT 13 U/L (<=34); Albumin, Serum 3.5 g/dL (3.4-4.8); Alkaline Phosphatase 89 U/L (35-104); Anion Gap 12 (5-15); BUN 6 mg/dL (4-19); BUN/Creat Ratio 10.2 RATIO (10-20); Calcium,Total 9.0 mg/dL (7.6-11.0); Carbon Dioxide 24.9 mmol/L (21.0-32.0); Chloride 106 mmol/L (98-108); Globulin 3.1 g/dL (2.2-4.2); Glucose 94 mg/dL (70-99); Potassium 3.8 mmol/L (3.3-5.1)
== END | disposition home or self-care (01) ==
LOC: LAB 11:35
PROVIDERS: PCP Nurse Practitioner Family; Referring Provider Student in an Organized Health Care Education/Training Program; Visit Provider Student in an Organized Health Care Education/Training Program
DX: E61.1 Iron deficiency (principal); K29.70 Gastritis, unspecified, without bleeding
CPT/HCPCS: 36415; 80053; 85025

== ENCOUNTER → 2025-01-24 | Outpatient (CLI) | payer MEDICARE, OTHER, SELFPAY ==
--- NOTE | 2025-01-24 10:20 | US_ITS ---
PROCEDURE: Ultrasound abdomen limited 01/24/2025 REASON FOR EXAM: ELEVATED LFTS COMPARISON: None FINDINGS: Liver: Grossly normal size and echotexture. The liver measures upper limits of normal at 17 cm. Gallbladder: Mildly distended gallbladder most likely due to the fasting phase. Gallbladder wall is not thickened and measures 1.7 mm. No gallstones are seen. Common bile duct: Normal measuring 6.2 mm . Pancreas: Normal Other: Visualized portions of the right kidney are unremarkable. No right upper quadrant ascites. US/Gallbladder IMPRESSION: Borderline hepatomegaly. Mildly distended gallbladder most likely due to the fasting stage. Reading Location: [id number]
--- NOTE | 2025-01-24 10:20 | US_ITS ---
PROCEDURE: Ultrasound abdomen limited 01/24/2025 REASON FOR EXAM: ELEVATED LFTS COMPARISON: None FINDINGS: Liver: Grossly normal size and echotexture. The liver measures upper limits of normal at 17 cm. Gallbladder: Mildly distended gallbladder most likely due to the fasting phase. Gallbladder wall is not thickened and measures 1.7 mm. No gallstones are seen. Common bile duct: Normal measuring 6.2 mm . Pancreas: Normal Other: Visualized portions of the right kidney are unremarkable. No right upper quadrant ascites. US/Gallbladder IMPRESSION: Borderline hepatomegaly. Mildly distended gallbladder most likely due to the fasting stage. Reading Location: [id number]
[2025-01-28 08:09] LABS: Calprotectin, Stool 660 ug/g (0-120)
== END | disposition home or self-care (01) ==
LOC: US 10:11
PROVIDERS: PCP Nurse Practitioner Family; Referring Provider Student in an Organized Health Care Education/Training Program; Visit Provider Student in an Organized Health Care Education/Training Program
DX: K29.70 Gastritis, unspecified, without bleeding (principal); E61.1 Iron deficiency; R79.89 Other specified abnormal findings of blood chemistry
CPT/HCPCS: 76705; 82274; 83993